=== PATIENT | male | born 1965 | race Caucasian/White ===

== ENCOUNTER 2024-06-14 10:19 | Emergency (ER) | payer BC, SELFPAY ==
[2024-06-14 10:23] VITALS: BP 170/100
--- NOTE | 2024-06-14 10:54 | ED.GENMED ---
History of Present Illness
General
Chief Complaint: DVT/Possible Blood Clot
Source: patient
Exam Limitations: none
Time Seen by Provider: 06/14/24 10:51
History of Present Illness
History of Present Illness:
See MDM
Past History
Past History
ED Past Medical History: None
Social History
Tobacco: Non-smoker
Alcohol: None
Personal: Single
Living: with family (lives with brother)
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
Phy Exam
Physical Exam
Physical Exam:
See MDM
Course
Orders/Labs/Results
Orders:
Orders
06/14/24 10:26
US Periph Venous LOWER Ext LT Urgent
Comment:
Reason For Exam: swelling
06/14/24 12:42
Apixaban [Eliquis] 10 mg PO BID ONE
Vital Signs
Initial and Last Documented VS:
Initial Vital Signs
Temp Pulse Resp BP Pulse Ox
98.2 F 80 18 170/100 97
06/14/24 10:23 06/14/24 10:23 06/14/24 10:23 06/14/24 10:23 06/14/24 10:23
Last Documented Vital Signs
Temp Pulse Resp BP Pulse Ox
98.2 F 63 18 137/76 95
06/14/24 10:23 06/14/24 12:07 06/14/24 12:07 06/14/24 12:07 06/14/24 12:07
MDM/Problems Addressed
Differential Diagnosis Includes:
HPI and MDM Narrative:
58-year-old male presenting with left calf pain. Patient states he has a history of DVT and recently returned from [place].
. On exam, there is mild erythema to the left calf but he states this is a heat rash.
Will obtain ultrasound rule out clot
Physical exam
General: Well appearing and non-toxic
HEENT: protecting airway
Neck: appears supple
CV: No evidence of cyanosis
Resp: No accessory muscle use
Abd: Non-distended
Extremities: Mild swelling and tenderness to left calf. Mild erythema noted
Neuro: alert
Psych: Normal affect
Skin: Intact
Problems Addressed including Acute and Chronic Conditions affecting care:
1. Left calf pain
Acuity: acute
Prognosis: stable
Details: Given recent travel, will obtain ultrasound to rule out DVT
Updates
Ultrasound consistent with DVT. Will start Eliquis
Differential Diagnosis (but not limited to): DVT, calf strain
Testing considered: X-ray
Drug therapy (if applicable): OTC meds, please see d/c instruction regarding Rx drugs
Amount and/or Complexity of Data Reviewed
Clinical info obtained from: Patient
External data reviewed: N/A
Labs I independently reviewed (but not limited to): N/A
Radiology: US report reviewed
Pulse Ox: not hypoxic
EKG independently reviewed: N/A
Brim Stretcher: N/A
Critical Care: N/A
Risk of Complication:
Social Determinants of health: Good social support
Discussed with other providers: N/A
Escalation of Care includes Admit/Obs: After being observed in the Emergency Department, pt stable for discharge.
Occasional wrong word or 'sound a like' substitutions may have occurred due to the inherent limitations of voice recognition software. Read the chart carefully and recognize, using context, where substitutions have occurred.
*Critical Care Note
Total Time (30-74mins, 75-104mins- exclusive of procedures): Not Applicable
ED Attending Note
-
Portions of this chart may have been created with voice recognition software.� Occasional wrong word or��sound alike� substitutions may have occurred due to the inherent limitations of voice recognition software.
Discharge Plan
Departure
Patient Disposition: Home (Routine Discharge)
Date of Disposition: 06/14/24
Time of Disposition: 12:43
Patient with high blood pressure during this ER visit?: No
Discharge Problem:
DVT (deep venous thrombosis)
Instructions: Deep Vein Thrombosis (Blood Clots in the Legs) (DC)
Prescriptions:
New
Eliquis DVT-PE Treat 30D Start 5 mg (74 tabs) tablets,dose pack
See Rx Instructions .ROUTE .COMPLEX Qty: 74 0RF
Rx Instructions:
orally per package directions
Referrals:
NONE,* [Family Provider] -
Activity Restrictions/Additional Instructions:
Please return for any worsening symptoms.
You may return at any time if you have further concerns.
Please follow up with your doctor at the first available appointment, preferably this week.
I started you on a blood thinner for the blood clot. I am writing you the first 30 days. Please have your doctor continue this medication until the clot resolves.
Thank you for choosing [facility].
Interventions
Interventions:
*Risk Screen - Suicide Last Done: 06/14/24 10:23
*General Assessment Last Done: 06/14/24 10:23
*Neglect/Abuse Screening Last Done: 06/14/24 10:23
ED- Fall Risk Assessment Last Done: 06/14/24 11:30
*ED COVID-19 Vaccine History Last Done: 06/14/24 10:23
ED- Cardiac Assessment Last Done: 06/14/24 11:29
ED- Pulmonary Assessment Last Done: 06/14/24 11:29
ED-Peripheral Vascular Assessment Last Done: 06/14/24 11:29
ED-Skin Assessment Last Done: 06/14/24 11:29
Discharge Date and Time
Print Language: OCCITAN
[2024-06-14 12:07] VITALS: BP 137/76
[2024-06-14] MEDS: ELIQUIS 10 MG PO (12:50)
== END 2024-06-14 12:59 | disposition home or self-care (01) ==
LOC: EMR 10:19
PROVIDERS: EMERGENCY PHYSICIAN Student in an Organized Health Care Education/Training Program
DX: I82.412 Acute embolism and thrombosis of left femoral vein (principal); M79.662 Pain in left lower leg; Z86.718 Personal history of other venous thrombosis and embolism; Z79.01 Long term (current) use of anticoagulants
CPT/HCPCS: 99284; 93971

== ENCOUNTER → 2024-09-28 10:30 | Outpatient (REF) | payer BC, SELFPAY | LOC: RAD 10:30 | PROVIDERS: ATTENDING PHYSICIAN Internal Medicine Hematology & Oncology; FAMILY PHYSICIAN Nurse Practitioner Adult Health | DX: I82.412 Acute embolism and thrombosis of left femoral vein (principal); I80.02 Phlebitis and thrombophlebitis of superficial vessels of left lower extremity | CPT/HCPCS: 93971 ==

== ENCOUNTER 2025-02-02 05:13 | Inpatient (IN) | payer BC, SELFPAY ==
[2025-02-02] VITALS (16 sets, daily range): BP systolic 97–190; BP diastolic 63–92; BMI 38.8; BMI 37.6
--- NOTE | 2025-02-02 03:24 | ED.GENMED ---
History of Present Illness
<Ashley Vance MD, Resident - Last Filed: 02/02/25 05:01>
General
Chief Complaint: Back Pain
Source: patient
Exam Limitations: none
Time Seen by Provider: 02/02/25 03:11
Nursing documentation reviewed up to this point in time: agreed with
History of Present Illness
History of Present Illness:
59-year-old male with past medical history of DVTs and hyperlipidemia comes to the ED due to upper back pain radiating down to his bilateral arms and chest starting around one week ago. He also has some left-sided jaw pain as well as diaphoresis.
Patient symptoms got progressively worse and he ended up going to [facility] urgent care earlier today. He states that they did an EKG and chest x-ray which did not show any abnormal findings. He was started on a muscle relaxant methocarbamol
which he took only 1 dose at 10 PM earlier today. 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 His pain comes and goes and he says that he has tried Ibuprofen for pain management which hasn't really helped.
He reports no fevers/chills or any shortness of breath. He does not have any nausea, vomiting or abdominal pain.
Past History
<Ashley Vance MD, Resident - Last Filed: 02/02/25 05:01>
Past History
ED Past Medical History: Hypercholesterolemia and Other (DVT)
Social History
Tobacco: Non-smoker
Alcohol: None
Personal: Single
Living: with family (lives with brother)
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
Review of Systems
<Ashley Vance MD, Resident - Last Filed: 02/02/25 05:01>
Review of Systems
Allergies reviewed?: Yes
All Other Systems: ROS reviewed and negative except as documented in HPI and ROS
Constitutional: Denies fever, fatigue or chills
EENT: Reports other (Jaw pain)
Respiratory: Reports no symptoms
Cardiac: Reports chest pain (pain radiates from back to front (around shoulders)) and diaphoresis; Denies palpitations or syncope
ABD/GI: Reports no symptoms
: Reports no symptoms
Musculoskeletal: Reports no symptoms
Skin: Reports no symptoms
Neurological: Reports no symptoms
Endocrine: Reports no symptoms
Hematologic/Lymphatic: Reports no symptoms
Psychiatric: Reports no symptoms
Phy Exam
<Ashley Vance MD, Resident - Last Filed: 02/02/25 05:01>
General Physical Exam
General Presentation: well appearing and no apparent distress
General age: appears stated age
General Skin: warm and dry
General Habitus: normal
General Mental: alert
General Hydration: appears well hydrated
Cardiovascular Exam
Cardiovascular Exam: regular rate/rhythm, no edema and no murmur
Pulmonary Exam
Pulmonary Exam: lungs clear, no respiratory distress, no crackles and no wheezing
Gastrointestinal Exam
Gastrointestinal Exam: normal bowel sounds, non tender, soft and non distended
Musculoskeletal Exam
Musculoskeletal Exam: back tenderness (Mild pain on palpation mid upper back)
Skin Exam
Skin Exam: normal color, warm/dry and no rash
Course
<Ashley Vance MD, Resident - Last Filed: 02/02/25 05:01>
Orders/Labs/Results
Orders:
Orders
02/02/25 03:31
IV Insert/Care/Rem.- Treatment PRN
Vital Signs- Treatment ONCE
Frequency: Hourly
Pulse Ox/cont/shift [RESP] Stat
Quantity: 1
02/02/25 03:32
Electrocardiogram (*1) Stat
Reason for Study: Other
Other Reason for Exam: chest pain
EKG- Treatment ONCE
02/02/25 03:45
Cardiovascular Evaluation Urgent
Comment: ADD ON
Complete Blood Count/With Diff Urgent
Comprehensive Metabolic Panel Urgent
Glycohemoglobin (HgbA1c) Urgent
PTT Urgent
Troponin I Urgent
02/02/25 04:35
Aspirin Chewable [Low Strength Aspirin] 324 mg PO NOW STA
Nitroglycerin Sublingual [Nitrostat (Sublingual)] 0.4 mg SL NOW STA
02/02/25 04:39
CR Chest Portable - 1 View Urgent
Comment:
Reason For Exam: intermittent CP, upper back pain x 1 week
Reason Study Needs to be Portable: Unable to Transport
02/02/25 04:48
Heparin 4,000 units IV NOW STA
Nursing to Place Non Medication Order As Directed
Physician Order: PTT 6 hours after initial start of Heparin infusion
02/02/25 04:51
Add On- LAB Stat
Tests Added?: cardiovascular panel, HgbA1c
02/02/25 04:57
Nitroglycerin Ointment [Nitro-Bid] 1 inch TOPICAL NOW STA
02/02/25 05:00
Heparin 43659 Units/250 ml 25,000 units in 250 ml IV PER PROTOCOL
Weight to be used for heparin protocol in kilograms (kg):: 119.2
Protocol:: Cardiac Tx/Acute Coronary
PTT Goal Range to be used:: PTT 73 to 111 seconds
Order type:: Initial
INITIAL Infusion Dose (UNITS/KG/hr) & then follow protocol:: 12 units/kg/hr
Infusion Dose in UNITS/hr & then follow protocol (UNITS/hr):: 1,000
INFUSION RATE in mL/hr & then follow protocol (mL/hr):: 10
PTT less than or equal to 64 seconds:: Increase rate by 200 units/hr (+ 2 mL/hr)
PTT 64.1 to 72.9 seconds:: Increase rate by 100 units/hr (+ 1 mL/hr)
PTT 73 to 111 seconds:: Target Range. No change in rate.
PTT 111.1 to 130.9 seconds:: Decrease rate by 100 units/hr (- 1 mL/hr)
PTT 131 to 199.9 seconds:: HOLD for 1 hr. Then decrease rate by 200 units/hr (- 2 mL/hr)
PTT greater than or equal to 200 seconds:: HOLD for 2 hrs & Notify Provider. Then decrease by 200 units/hr (-
2 mL/hr)
Lab follow-up:: Each change, PTT q6h until 2 consecutive are therapeutic. Then PTT
daily.
Abnormal Lab Results
02/02/25
03:45
WBC 10.9 H 10^3/uL
(4.8-10.8)
Abs Immat Gran (auto) 0.1 H 10^3/uL
(0-0.05)
Absolute Neuts (auto) 8.8 H 10^3/uL
(1.4-6.5)
Neutrophils % 80.2 H %
(42.2-75.2)
Lymphocytes % 12.9 L %
(20.5-51.1)
BUN 23 H mg/dl
(9-20)
Glucose 195 H mg/dl
(70-99)
Troponin I 0.487 H* ng/ml
02/02/25 03:45
02/02/25 03:45
Vital Signs
Initial and Last Documented VS:
Initial Vital Signs
Temp Pulse Resp BP Pulse Ox
98.4 F 60 20 190/92 96
02/02/25 02:43 02/02/25 02:43 02/02/25 02:43 02/02/25 02:43 02/02/25 02:43
Last Documented Vital Signs
Temp Pulse Resp BP Pulse Ox
98.4 F 60 17 166/91 94
02/02/25 02:43 02/02/25 04:30 02/02/25 04:30 02/02/25 04:46 02/02/25 04:30
<Carola Jon, DO - Last Filed: 02/02/25 04:59>
Orders/Labs/Results
Orders:
Orders
02/02/25 03:31
IV Insert/Care/Rem.- Treatment PRN
Vital Signs- Treatment ONCE
Frequency: Hourly
Pulse Ox/cont/shift [RESP] Stat
Quantity: 1
02/02/25 03:32
Electrocardiogram (*1) Stat
Reason for Study: Other
Other Reason for Exam: chest pain
EKG- Treatment ONCE
02/02/25 03:45
Cardiovascular Evaluation Urgent
Comment: ADD ON
Complete Blood Count/With Diff Urgent
Comprehensive Metabolic Panel Urgent
Glycohemoglobin (HgbA1c) Urgent
PTT Urgent
Troponin I Urgent
02/02/25 04:35
Aspirin Chewable [Low Strength Aspirin] 324 mg PO NOW STA
Nitroglycerin Sublingual [Nitrostat (Sublingual)] 0.4 mg SL NOW STA
02/02/25 04:39
CR Chest Portable - 1 View Urgent
Comment:
Reason For Exam: intermittent CP, upper back pain x 1 week
Reason Study Needs to be Portable: Unable to Transport
02/02/25 04:48
Heparin 4,000 units IV NOW STA
Nursing to Place Non Medication Order As Directed
Physician Order: PTT 6 hours after initial start of Heparin infusion
02/02/25 04:51
Add On- LAB Stat
Tests Added?: cardiovascular panel, HgbA1c
02/02/25 04:57
Nitroglycerin Ointment [Nitro-Bid] 1 inch TOPICAL NOW STA
02/02/25 05:00
Heparin 57177 Units/250 ml 25,000 units in 250 ml IV PER PROTOCOL
Weight to be used for heparin protocol in kilograms (kg):: 119.2
Protocol:: Cardiac Tx/Acute Coronary
PTT Goal Range to be used:: PTT 73 to 111 seconds
Order type:: Initial
INITIAL Infusion Dose (UNITS/KG/hr) & then follow protocol:: 12 units/kg/hr
Infusion Dose in UNITS/hr & then follow protocol (UNITS/hr):: 1,000
INFUSION RATE in mL/hr & then follow protocol (mL/hr):: 10
PTT less than or equal to 64 seconds:: Increase rate by 200 units/hr (+ 2 mL/hr)
PTT 64.1 to 72.9 seconds:: Increase rate by 100 units/hr (+ 1 mL/hr)
PTT 73 to 111 seconds:: Target Range. No change in rate.
PTT 111.1 to 130.9 seconds:: Decrease rate by 100 units/hr (- 1 mL/hr)
PTT 131 to 199.9 seconds:: HOLD for 1 hr. Then decrease rate by 200 units/hr (- 2 mL/hr)
PTT greater than or equal to 200 seconds:: HOLD for 2 hrs & Notify Provider. Then decrease by 200 units/hr (-
2 mL/hr)
Lab follow-up:: Each change, PTT q6h until 2 consecutive are therapeutic. Then PTT
daily.
Abnormal Lab Results
02/02/25
03:45
WBC 10.9 H 10^3/uL
(4.8-10.8)
Abs Immat Gran (auto) 0.1 H 10^3/uL
(0-0.05)
Absolute Neuts (auto) 8.8 H 10^3/uL
(1.4-6.5)
Neutrophils % 80.2 H %
(42.2-75.2)
Lymphocytes % 12.9 L %
(20.5-51.1)
BUN 23 H mg/dl
(9-20)
Glucose 195 H mg/dl
(70-99)
Troponin I 0.487 H* ng/ml
02/02/25 03:45
02/02/25 03:45
Vital Signs
Initial and Last Documented VS:
Initial Vital Signs
Temp Pulse Resp BP Pulse Ox
98.4 F 60 20 190/92 96
02/02/25 02:43 02/02/25 02:43 02/02/25 02:43 02/02/25 02:43 02/02/25 02:43
Last Documented Vital Signs
Temp Pulse Resp BP Pulse Ox
98.4 F 60 17 166/91 94
02/02/25 02:43 02/02/25 04:30 02/02/25 04:30 02/02/25 04:46 02/02/25 04:30
<Ashley Vance MD, Resident - Last Filed: 02/02/25 05:01>
MDM/Problems Addressed
Differential Diagnosis Includes:
Musculoskeletal Back Pain, Aortic Dissection, ACS, PE
MDM/Problems Addressed:
59 year old male with a past medical history of DVTs and HLD comes to the ED due to 1 week long history of upper back pain that radiates to the front.
Due to symptoms such as radiating pain to the chest, jaw pain, and diaphoresis, concern for cardiac process
Will get EKG, Troponin, CBC, CMP
Will get CTA of Chest depending on results of EKG to check for any aortic disease
EKG shows some T-wave inversions w/ Troponin increased giving concern for NSTEMI
Will give Nitroglycerin and Aspirin. Will start Heparin treatment and admit for further management
Chronic conditions affecting care: Other (DVTs, HLD)
<Ashley Vance MD, Resident - Last Filed: 02/02/25 05:01>
*Pulse Oximetry
SaO2: 96
Oxygen Mode of Delivery: Room air
Patient hypoxic: no
*Critical Care Note
Total Time (30-74mins, 75-104mins- exclusive of procedures): Not Applicable
ED Attending Note
<Ashley Vance MD, Resident - Last Filed: 02/02/25 05:01>
-
Portions of this chart may have been created with voice recognition software.� Occasional wrong word or��sound alike� substitutions may have occurred due to the inherent limitations of voice recognition software.
<Carola Jon DO - Last Filed: 02/02/25 04:59>
ED Attending Note
Patient seen and examined by attending physician: Yes
I performed the substantive portion of visit, reviewed & personally made and approve the management plan that is documented in note by myself or [facility].: Yes
ED Attending Note:
59-year-old obese gentleman with history of hyperlipidemia, maintained on rosuvastatin. History of left lower extremity DVT after lengthy air travel May 2024, completed a 6-month course of Eliquis.
He presents with 1 week history of intermittent upper back pain that radiates to his upper chest and occasionally to his jaw which he describes as a jaw ache, upper back and upper chest ache. No definitive aggravating nor relieving factors,
intermittent throughout the week with an episode of severe upper back pain yesterday accompanied with diaphoresis prompting visit to urgent care yesterday where he reportedly underwent unremarkable EKG, unremarkable chest x-ray and was discharged
with prescription for methocarbamol. Took a dose this evening around 10 PM as well as 400 mg of ibuprofen. No relief thus presented here.
He denies arm pain, no weakness no numbness, no posterior neck pain nor headache. No history of similar episodes in the past. No insightful injury. 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 Denies discomfort with lifting, movement etc.
No history of similar episodes in the past.
Father with history of CAD, DE, CHF but patient states his father 'smoked and drank. I do not do any of those.'
Currently feeling improved, perhaps mild upper back ache but no chest pain nor jaw pain.
59-year-old obese gentleman appears his stated age. Bright and alert, pleasant, appears in no acute distress.
Heart is regular rate and rhythm. No murmur no rub.
Lungs are clear to auscultation.
Back: No midline bony tenderness. No palpable paravertebral muscle tenderness.
Extremities: Nonpitting edema bilateral lower extremities left greater than right. Nontender. Patient states lower extremity edema is chronic and unchanged. Peripheral pulses are full and equal. There is no tenderness to the shoulders. Full
shoulder range of motion without difficulty nor pain.
Significant concern for ACS, other consideration is dissection, less likely PE as he has had no recent travel, no shortness of breath no palpitations.
Will check EKG, labs including troponin.
Will consider imaging depending on results and clinical course.
04:45
EKG shows normal sinus rhythm with first-degree AV block, left axis deviation, flipped T waves inferiorly as well as V6. No evidence of ST segment elevation. No old EKGs to compare.
Labs remarkable for elevated troponin 0.487. Consistent with non-STEMI.
Will give 324 mg chewable aspirin. Initiate IV heparin bolus and drip.
Patient waxes and wanes states he is pain-free but then perhaps minimal upper back pain. Will trial sublingual nitroglycerin.
Will plan to admit to hospitalist service and cardiology has been notified as well. Will evaluate this morning.
Discharge Plan
Departure
Patient Disposition: Admit
Date of Disposition: 02/02/25
Time of Disposition: 04:59
Admit to: IVU
Admit to doctor: Dr. Ferrara
Presentation/result/management discussed w/ accepting MD/DO: Hospitalist
Patient with high blood pressure during this ER visit?: Yes
Condition: Serious
Covid-19: Not Applicable
Discharge Problem:
Acute non-ST elevation myocardial infarction (NSTEMI)
Prescriptions:
No Action
Eliquis DVT-PE Treat 30D Start 5 mg (74 tabs) tablets,dose pack
See Rx Instructions .ROUTE .COMPLEX Qty: 74 0RF
Rx Instructions:
orally per package directions
Referrals:
UNKNOWN - PT DOES,NOT KNOW [Unknown Provider]
Interventions
Interventions:
*Risk Screen - Suicide Last Done: 02/02/25 02:43
*General Assessment Last Done: 02/02/25 02:43
*Neglect/Abuse Screening Last Done: 02/02/25 02:43
*ED- Fall Risk Assessment Last Done: 02/02/25 02:43
*ED COVID-19 Vaccine History Last Done: 02/02/25 02:43
Discharge Date and Time
Print Language: DOMINICAN
[2025-02-02 03:55] LABS: Hematocrit 46.3 % (39.0-52.0); Hemoglobin 15.6 g/dL (13.0-18.0); Mean Corp Hgb Conc. 33.7 g/dL (33.0-37.0); Mean Corpuscular Volume 86.1 fL (80.0-94.0); Nucleated Red Blood Cells % 0 % (-); Platelet Count 236 10^3/uL (130-400); Red Cell Dist. Width 13.6 % (11.5-14.5)
[2025-02-02 04:24] LABS: ALT (SGPT) 30 U/L (0-50); AST (SGOT) 35 U/L (17-59); Albumin 4.6 g/dl (3.5-5.0); Alkaline Phosphatase 92 U/L (38-126); Blood Urea Nitrogen 23 mg/dl (9-20); Calcium 9.2 mg/dl (8.4-10.2); Carbon Dioxide 23 mmol/L (22-30); Chloride 106 mmol/L (98-107); Glucose 195 mg/dl (70-99); Potassium 4.3 mmol/L (3.5-5.1); Sodium 137 mmol/L (135-145); Total Protein 7.5 g/dl (6.3-8.2); eGFR > 60.00
[2025-02-02 04:33] LABS: Troponin I 0.487 ng/ml
[2025-02-02] MEDS: NITROSTAT (SUBLINGUAL) 0.4 MG SL (04:41)
[2025-02-02] MEDS: LOW STRENGTH ASPIRIN 324 MG PO (04:41)
--- NOTE | 2025-02-02 04:52 | HPS.HSE ---
Family Physician
-
Family Physician: Jos Caban
Chief Complaint
-
Upper back pain/chest pain
History of Present Illness
This is a 59-year-old with diet-controlled diabetes, hyperlipidemia and hypertension who presents to the emergency department with intermittent episodes of upper back pain radiating to the chest.
Patient reported that the symptoms have been going on for 1 week with intermittent episodes of pain in between his shoulder blades according for a brief. Which initially associated with musculoskeletal pain due to his walk. However yesterday the
pain was more severe and radiated to his chest and jaw and lasted for about 30 minutes. It was associated with diaphoresis. When he was seen at urgent care and the pain had resolved. Reported that he had a negative EKG and chest x-ray. He was
given a muscle relaxant. He comes to the emergency department because he reports persistent pain in his neck despite the muscle relaxant. He is currently chest pain-free.
He has a history of DVT that was provoked following a prolonged airplane flight for which she was on 3 months of anticoagulation ending in about August. He denies any pleuritic chest pain. He denies any shortness of breath. He denies any calf
tenderness no new lower extremity swelling.
Vital signs were actually stable he is not hypertensive with a blood pressure of 143/77 pulse rate of 60 and he was satting 98% on room air. ECG shows normal sinus rhythm with flipped T waves inferiorly and V6. His troponin was 0.47. CBC was
unremarkable, electrolytes renal and creatinine were normal.
Medical History
Past Medical History
Past Medical History: Reports HTN, Hypercholesterolemia and Other (DVT)
Past Surgical History: Reports None
Social History
Tobacco: Non-smoker
Alcohol: None
Drug: None
Personal: Single
Living: With Family
Employment: Employed
Family History
Family History: Not pertinent
Allergies / Home Medications
Allergies reflects when Allergies were last updated in [facility].
Home Medications with original date entered in [facility]
Allergy/Medication List:
Allergies
Allergy/AdvReac Type Severity Reaction Status Date / Time
No Known Allergies Allergy Verified 02/02/25 02:43
Home Medications
Rosuvastatin 20 mg tablet, 20 mg p.o. daily
Review of Systems
-
History Source: Patient
Constitutional: Reports No Symptoms
EENT: Reports No Symptoms
Respiratory: Reports No Symptoms
Cardiac: Reports Chest Pain and Diaphoresis
Abdomen/GI: Reports No Symptoms
: Reports No Symptoms
Musculoskeletal: Reports No Symptoms
Skin: Reports No Symptoms
Neurological: Reports No Symptoms
Endocrine: Reports No Symptoms
Hematologic/Lymphatic: Reports No Symptoms
Psych: Reports No Symptoms
Physical Exam
Vital Signs
Vital Signs
Temp Pulse Resp BP Pulse Ox
98.4 F 60 17 166/91 94
02/02/25 02:43 02/02/25 04:30 02/02/25 04:30 02/02/25 04:46 02/02/25 04:30
Physical Exam
General: Well Developed, Well Nourished and No Apparent Distress
HEENT: NormoCephalic, Moist mucous membranes and Atraumatic
Respiratory: Clear
Cardiac: S1/S2 and Regular Rhythm; No Murmur or Rub
GI: Soft, Non Tender, Non Distended and Normal Bowel Sounds; No Organomegaly
Rectal: Deferred by Provider
Musculoskeletal: No Clubbing, No Cyanosis and No Edema
Skin: No Rash
Neuro: Nonfocal/grossly intact
Laboratory Results
-
02/02/25 03:45
02/02/25 03:45
Laboratory Results
Total Bilirubin 0.5 mg/dl (0.2-1.3) 02/02/25 03:45
AST 35 U/L (17-59) 02/02/25 03:45
ALT 30 U/L (0-50) 02/02/25 03:45
Alkaline Phosphatase 92 U/L (38-126) 02/02/25 03:45
Troponin I 0.487 ng/ml H* 02/02/25 03:45
Data Reviewed
-
Medical Tests (Nuc Med, Echo, EKG etc): Image Personally Visualized and interpreted
Lab Data: Labs Reviewed by me
Impression/Plan
-
IMPRESSION:
59-year-old with past medical history of hyperlipidemia, on diet control for prediabetes, prior provoked DVT status post anticoagulation presenting to the emergency department with chest pain and found to have elevated troponin and flipped T waves
on EKG. He is currently chest pain-free, hemodynamically stable and in no acute distress. Troponin was 0.48. Rest of his labs unremarkable.
PLAN:
NSTEMI
- Admit to IVU
-Status post aspirin
-Nitroglycerin as needed chest pain
-Start heparin drip protocol for ACS
-N.p.o. for now
-ECG as needed chest pain or nausea
-Continue aspirin 81 daily
-Continue statin (rosuvastatin)
-Checking lipid panel and A1c
-Cardiology consulted
DVT prophylaxis on heparin drip
CODE STATUS�full code
[2025-02-02 04:58] LABS: APTT 36.1 Sec (23.4-35.0)
[2025-02-02] MEDS: HEPARIN 25000 UNITS/250 ML IV (05:14)
[2025-02-02] MEDS: HEPARIN 4000 UNITS IV (05:14)
[2025-02-02] MEDS: NITRO-BID 1 INCH TOPICAL (05:22)
[2025-02-02 05:25] LABS: HDL Cholesterol 37 mg/dl
[2025-02-02 06:31] LABS: LDL Cholesterol, Direct 111 mg/dl
--- NOTE | 2025-02-02 08:23 | CON.CAR ---
Addendum entered and electronically signed by Damian Flores MD 02/02/25 09:02:
Patient seen and examined in collaboration with [employer]; agree with below.
- 59-year-old male with hyperlipidemia (on rosuvastatin, but LDL is not nearly at goal of less than 55), uncontrolled/untreated hypertension, untreated diabetes, obesity, and family history of CAD (father) presenting with chest pain, concerning for
angina; cardiac troponin mildly elevated.
- Patient's presentation appears to be consistent with an NSTEMI.
- T wave inversion noted in inferior leads, and possible anterior infarct pattern on EKG.
- Continue to trend cardiac troponin until peak.
- Continue heparin drip and Nitropaste.
- Patient has notable edema on examination; will start Lasix 40 mg IV daily.
- Will hold off on starting beta-mercedes secondary to baseline low heart rates of 60s.
- valance cutter.
- Cardiac catheterization planned for Tuesday, if remains clinically stable until then; no chest pain currently.
Original Note:
Consultation
Consultation Request
Date/Time Consultation Requested: 02/02/25656
Date/Time Consultation Performed: 02/02/25823
Requesting Provider: Dr. Ferrara
Performing Provider: Bess RYAN for Dr. Flores
Reason for Consultation: NSTEMI
Medical History
-
Chief Complaint: back/chest pain
History of Present Illness:
59 y/o male with hypertension (not on meds), dyslipidemia, DM2 (not on meds), obesity, and DVT (provoked from long flight, s/p Eliquis course) who is here for evaluation after he developed back discomfort yesterday around noon while he was working-
it radiated to his chest and felt like a tightness. He was also sweaty. It lasted about 15 minutes then resolved, but when it came back he went to urgent care, where he was told his EKG was fine and was given muscle relaxer. This did not help and
when he went to sleep, he developed the discomfort again and came to the ER. He is seen to have inferior T wave inversions on EKG. His trop is 0.487. He has been given ASA, nitro, and is on heparin gtt. He is in no distress and denies any pain at
the time of my assessment. He has no SOB.
Past Medical History
Past Medical History: HTN, Hypercholesterolemia, NIDDM and Other (as above)
Social History
Tobacco: Non-Smoker
Alcohol: None
Drug: None
Employment: Employed
Family History
Family History: Other (dad had heart issues- at 74- details unclear- was smoker)
Allergies / Home Medications
Allergy/AdvReac Type Severity Reaction Status Date / Time
No Known Allergies Allergy Verified 02/02/25 02:43
�Medication �Instructions �Recorded �Confirmed �Type
methocarbamol 500 mg tablet 500 mg PO HS 02/02/25 02/02/25 History
rosuvastatin 10 mg tablet 10 mg PO DAILY 02/02/25 02/02/25 History
Review of Systems
-
History Source: Patient
All other systems: Negative unless noted
Cardiac: Chest Pain and Diaphoresis
Musculoskeletal: Other (back pain)
Physical Exam
Vital Signs
Temp Pulse Resp BP Pulse Ox
98.4 F 70 18 153/88 97
02/02/25 02:43 02/02/25 05:22 02/02/25 05:15 02/02/25 05:22 02/02/25 05:30
Lab Results
02/02/25 03:45
02/02/25 03:45
Troponin I 0.487 ng/ml H* 02/02/25 03:45
Physical Exam
General: Well Developed, Well Nourished and No Apparent Distress
HEENT: Normocephalic and Anicteric
Respiratory: Clear and Non Labored Respirations
Cardiac: Regular Rhythm
Musculoskeletal: Edema (chronic BLE edema, L > R- unchanged per patient)
Skin: Warm and Dry
Neuro: AO x 3
Psych: Calm
Impression / Plan
-
NSTEMI:
-this diagnosis is threat to life
-trop 0.487, EKG with inferior T wave inversions
-follow EKG's, trend trops to peak, obtain echo
-continue IV heparin, which requires intensive monitoring
-ASA given- continue
-increase statin
-adding ACEI. Won't add BB for now since baseline HR on low side- may add later this admit
-CP free, has received nitrates
DM2:
-not on meds
-hgbA1C pending
-management per primary team
HTN:
-not on meds
-add ACEI and monitor
HLD:
-LDL 111, statin increased
hx DVT:
-previously on Eliquis course
Obesity:
-will benefit from weight loss moving forward
Data Reviewed
-
EKG: Tracing Personally Visualized and interpreted (SR with inferior t wave inversions)
Radiology: Image Personally Visualized and interpreted (no acute disease of chest to my review- awaiting radiology read)
Medical Tests (Nuc Med, Echo etc): Other (echo is ordered)
Labs: Labs Reviewed by me
Scores
REVA for NSTEMI
Age >/= 65: No
>/=3 CAD risk factors-HTN,High Chol,Fam hx CAD,DM,Smoker: Yes
Known CAD (stenosis >/=50%): No
ASA use in past 7 days: No
Severe angina (>/= 2 episodes in 24 hrs): Yes
EKG ST Changes >/= 0.5mm: No
Positive cardiac marker: Yes
Score: 3
Risk at 14 days-mortality, new/recurrent SD, severe ischemia: Intermediate Risk- 13% Risk at 14 days- all cause mortality, new or recurrent SD, or severe recurrent ischemia requiring urgent revascularization
--- NOTE | 2025-02-02 08:38 | EDRN ---
this RN called the receiving IVU nurse Glenis KELLER and gave verbal report, this RN performed the medication reconciliation with the pt, the pt knows what medications he takes, this RN notified pharmacy, this RN performed admission on the pt as well
--- NOTE | 2025-02-02 08:48 | EDRN ---
Cardiology currently at the pts bedside
--- NOTE | 2025-02-02 09:32 | PTCARENOTE ---
pt admitted from ed. pt oriented to room, sr on the monitor, hr in the 70s, vss. pt offers no complaints at this time. pt denies cp/sob at this time. pt ambulated from stretcher to bed and tolerated well. heparin gtt running per protocol, see
documentation. call coombs within reach.
[2025-02-02 09:38] LABS: Troponin I 3.160 ng/ml
[2025-02-02] MEDS: ZESTRIL 10 MG PO (11:00)
[2025-02-02] MEDS: LASIX 40 MG IV (11:01)
[2025-02-02 11:11] LABS: Glycohemoglobin (HgbA1c) 6.3 % (4.0-5.6)
[2025-02-02 11:39] LABS: APTT 40.4 Sec (23.4-35.0)
[2025-02-02 11:41] LABS: D-Dimer 0.30 ug/mlFEU (0.00-0.50)
[2025-02-02 11:58] LABS: Troponin I 4.890 ng/ml
[2025-02-02] MEDS: CRESTOR 20 MG PO (18:36)
[2025-02-02 19:01] LABS: APTT 42.9 Sec (23.4-35.0)
[2025-02-02 19:20] LABS: Troponin I 7.770 ng/ml
--- NOTE | 2025-02-02 20:55 | PTCARENOTE ---
assumed care of patient at the change of shift. AAOx3. denies any cp/sob. heparin gtt infusing per protocol. mild dyspnea on exertion noted. patient denies. 95% on RA. SR with a first degree AVB on tele-60s. bp stable. educated patient to inform RN
with any changes. call coombs within reach.
[2025-02-03] VITALS (7 sets, daily range): BP systolic 90–135; BP diastolic 54–85; BMI 37.3
[2025-02-03] MEDS: HEPARIN 25000 UNITS/250 ML IV ×2 (02:01→17:48)
[2025-02-03 02:21] LABS: Hematocrit 44.1 % (39.0-52.0); Hemoglobin 15.0 g/dL (13.0-18.0); Mean Corp Hgb Conc. 34.0 g/dL (33.0-37.0); Mean Corpuscular Volume 86.0 fL (80.0-94.0); Nucleated Red Blood Cells % 0 % (-); Platelet Count 218 10^3/uL (130-400); Red Cell Dist. Width 14.0 % (11.5-14.5)
[2025-02-03 02:31] LABS: APTT 63.1 Sec (23.4-35.0)
[2025-02-03 02:49] LABS: Blood Urea Nitrogen 25 mg/dl (9-20); Calcium 9.3 mg/dl (8.4-10.2); Carbon Dioxide 25 mmol/L (22-30); Chloride 108 mmol/L (98-107); Estimated Creatinine Clearance > 125 ml/min; Glucose 111 mg/dl (70-99); Potassium 4.0 mmol/L (3.5-5.1); Sodium 139 mmol/L (135-145); eGFR > 60.00
[2025-02-03 03:10] LABS: Troponin I 6.050 ng/ml
[2025-02-03] MEDS: LOW STRENGTH ASPIRIN 81 MG PO (08:35)
[2025-02-03] MEDS: LASIX 40 MG IV (08:35)
[2025-02-03] MEDS: ZESTRIL 10 MG PO (08:35)
[2025-02-03] MEDS: FLUSH (NSS) 1 FLUSH IV (08:36)
--- NOTE | 2025-02-03 09:16 | PTCARENOTE ---
received patient this am, monitor shows NSR with a first degree, VSS. IV heparin @ 1600units/hr via left hand. INT in right hand flushes well. edema noted in right leg greater than left. patient scheduled for heart cath in am.
[2025-02-03 09:24] LABS: APTT 89.2 Sec (23.4-35.0)
--- NOTE | 2025-02-03 10:11 | W.PN.CD ---
Today's Communication / Plan
-
- Troponin 0.487 on admission with peak to 7.7, now trending down; EKG with inferior T wave inversion.
- Remains chest pain-free at this time.
- Continue IV heparin, aspirin, and rosuvastatin (dose was increased); no beta-mercedes secondary to intrinsic low heart rate.
- Cardiac catheterization planned for tomorrow morning; NPO after midnight.
- Echocardiogram tomorrow.
Impression / Plan
-
NSTEMI:
- Troponin 0.487 on admission with peak to 7.7, now trending down; EKG with inferior T wave inversion.
- Remains chest pain-free at this time.
- Continue IV heparin, aspirin, and rosuvastatin (dose was increased); no beta-mercedes secondary to intrinsic low heart rate.
- Cardiac catheterization planned for tomorrow morning; NPO after midnight.
- Echocardiogram tomorrow.
NSVT:
- 8-beats noted yesterday (asymptomatic).
- Following clinically; no beta-mercedes secondary to baseline intrinsic bradycardia.
DM2:
-not on meds as outpatient
-hgbA1C 6.3%
-management per primary team
HTN:
- Untreated as outpatient.
- Lisinopril 10 mg and IV Lasix 40 mg daily started yesterday (mild edema).
HLD:
-LDL 111, statin increased
hx DVT:
-previously on Eliquis course
Obesity:
-will benefit from weight loss moving forward
Physical Exam
Vital Signs/Labs
Vital Signs
Temp Pulse Resp BP Pulse Ox
98.4 F 62 20 129/85 98
02/03/25 07:19 02/03/25 09:15 02/03/25 07:19 02/03/25 08:35 02/03/25 08:30
02/02/25 02/03/25 02/04/25
06:59 06:59 06:59
Actual Weight 119.2 kg 115.4 kg
02/03/25 02:04
02/03/25 02:04
APTT 89.2 Sec (23.4-35.0) H 02/03/25 09:03
Triglycerides 416 mg/dl (10-149) H 02/02/25 03:45
LDL Cholesterol, Calc mg/dl 02/02/25 03:45
VLDL Cholesterol, Calc mg/dl (0-30) 02/02/25 03:45
HDL Cholesterol 37 mg/dl 02/02/25 03:45
02/02/25
03:45
Yaa-E-Dhqvrvusbfb Pept 1290
LAB Results
02/02/25 02/02/25 02/02/25
03:45 09:01 11:17
Troponin I 0.487 H* 3.160 H* D 4.890 H* D
02/02/25 02/03/25
18:43 02:04
Troponin I 7.770 H* D 6.050 H*
Physical Exam
Constitutional: No acute distress and Comfortable
EENT: Anicteric
Cardiovascular: Rhythm & rate is regular, Systolic murmur absent, Pedal edema present (Trace) and S1S2 is normal
Respiratory: Respiratory effort normal and Lungs clear to auscul.
GI: Soft
Neuro/Psych: AO x 3
Other: Skin (Warm, dry, intact)
Data Reviewed
-
Date of Service: February 03, 2025
EKG: Tracing Personally Visualized and interpreted (Telemetry: Sinus rhythm, 8-beat run of NSVT, infrequent ventricular triplets)
Medical Tests (PFT, Pathology etc): Discussed with Patient
Labs: Labs Reviewed by me
--- NOTE | 2025-02-03 13:53 | W.PN.HOSP.TC ---
Today's Communication/Plan
-
Continue with IV heparin
For cardiac cath and echo tomorrow
Assessment / Plan
Assessment / Plan
IMPRESSION:
59-year-old with past medical history of hyperlipidemia, on diet control for prediabetes, prior provoked DVT status post anticoagulation presenting to the emergency department with chest pain and found to have elevated troponin and flipped T waves
on EKG. He is currently chest pain-free, hemodynamically stable and in no acute distress. Troponin was 0.48. Rest of his labs unremarkable.
PLAN:
NSTEMI
- No further chest pain. Troponin peaked at 7.7 which is trending down.
-Continue aspirin 81 daily
-Continue statin (rosuvastatin)
- Continue with IV heparin.
- For cardiac cath and echo tomorrow.
- IV diuretics per cardiology
Elevated blood pressure-suspect essential hypertension
Initiated on lisinopril by cardiology. Blood pressure above goal.
DVT prophylaxis on heparin drip
CODE STATUS�full code
Anticipated Discharge: 24 - 48 hours
Subjective/Interval History
-
Date of Service: February 03, 2025
No further chest pain. Denies shortness of breath. No nausea or vomiting. Denies any lightheadedness.
Objective Data
-
Labs:
Laboratory Results
02/03/25 02/03/25 02/03/25
02:04 09:03 16:00
WBC 11.1 H
Hgb 15.0
Hct 44.1
Plt Count 218
APTT 63.1 H 89.2 H Pending
Sodium 139
Potassium 4.0
Chloride 108 H
Carbon Dioxide 25
BUN 25 H
Creatinine 0.7
Glucose 111 H
Calcium 9.3
Vital Signs:
Vital Signs
Temp Pulse Resp BP Pulse Ox
98.4 F 62 20 129/85 97
02/03/25 11:44 02/03/25 09:15 02/03/25 11:44 02/03/25 08:35 02/03/25 11:44
I&O
02/02/25 02/03/25 02/04/25
06:59 06:59 06:59
Intake Total 930 / 930
Output Total 1500 / 1500 950 / 950
Balance -570 / -570 -950 / -950
Physical Exam
-
General: Comfortable
Respiratory: Non Labored Respirations; Negative Accessory Resp Muscle Use
Cardiac: Regular Rhythm and S1/S2; Negative Tachycardic
GI: Soft
Neuro: AO x 3
Psych: Calm; Negative Confused
Data Reviewed
-
Labs: Labs Reviewed by me
[2025-02-03 16:40] LABS: APTT 81.6 Sec (23.4-35.0)
[2025-02-03] MEDS: CRESTOR 20 MG PO (17:32)
[2025-02-04] VITALS (17 sets, daily range): BP systolic 112–135; BP diastolic 59–87; BMI 36.8
--- NOTE | 2025-02-04 04:43 | PTCARENOTE ---
Pt SB overnight with HR as low as 45 BPM. Pt denies SOB or any discomfort. Heparin gtt per order. Pt independent in the room. Call corin w/in reach
[2025-02-04 04:53] LABS: Hematocrit 44.4 % (39.0-52.0); Hemoglobin 14.7 g/dL (13.0-18.0); Mean Corp Hgb Conc. 33.1 g/dL (33.0-37.0); Mean Corpuscular Volume 87.4 fL (80.0-94.0); Platelet Count 213 10^3/uL (130-400); Red Cell Dist. Width 13.9 % (11.5-14.5)
[2025-02-04 05:00] LABS: APTT 118.7 Sec (23.4-35.0)
[2025-02-04 05:31] LABS: Blood Urea Nitrogen 20 mg/dl (9-20); Calcium 8.5 mg/dl (8.4-10.2); Carbon Dioxide 20 mmol/L (22-30); Chloride 114 mmol/L (98-107); Estimated Creatinine Clearance > 125 ml/min; Glucose 95 mg/dl (70-99); Potassium 3.4 mmol/L (3.5-5.1); Sodium 140 mmol/L (135-145); eGFR > 60.00
[2025-02-04] MEDS: KCL 40 MEQ PO (06:24)
--- NOTE | 2025-02-04 08:49 | W.PN.CD ---
Today's Communication / Plan
-
Cardiac catheterization today to clarify coronary anatomy.
Echocardiogram pending.
Impression / Plan
-
Impression/Plan: 59 y/o male with HTN, HLD, NIDDM and history of provoked DVT admitted with NSTEMI.
#NSTEMI:
-Acute, threat to life.
-Troponin peaked at 7.7; EKG with inferior T wave inversion.
-Remains chest pain-free at this time.
-Cardiac catheterization to clarify coronary anatomy.
-Echocardiogram pending.
#NSVT:
-Acute, asymptomatic.
-8-beats noted yesterday (02/02/2025).
-Following clinically; no beta-mercedes secondary to baseline intrinsic bradycardia.
#DM2:
-Chronic, diet controlled.
-HgbA1C 6.3%.
-Management per primary team.
-There will be a role for GLP-1 agonists as an outpatient.
#HTN:
-Chronic, untreated as outpatient.
-Responded will to lisinopril/furosemide.
-We will decide on chronicity of furosemide after assessment of LVEDP during cath.
#HLD:
-Chronic, uncontrolled.
-Total cholesterol = 207, LDL = 111, HDL = 37, Triglycerides = 416.
-Rosuvastatin 20 mg daily.
-There may be a role for icosapent ethyl. Recheck lipids in 3 months.
#hx DVT:
-Previously on apixaban x 3 months.
#Obesity:
-Chronic, stable.
-He will benefit from weight loss moving forward.
-As noted, there is a role for GLP-1 agonists at the time of discharge.
Subjective/Interval History:
Chest pain free.
Started on lisinopril/furosemide.
Weight down 1.5 kg.
Intrinsically bradycardic (40-60 bpm).
Physical Exam
Vital Signs/Labs
Vital Signs
Temp Pulse Resp BP Pulse Ox
37.1 C 52 14 113/79 97
02/04/25 07:57 02/04/25 07:57 02/04/25 07:57 02/04/25 03:07 02/04/25 07:57
02/02/25 02/03/25 02/04/25
11:59 11:59 11:59
Actual Weight 115.4 kg 112.9 kg
02/04/25 04:39
02/04/25 04:39
APTT 118.7 Sec (23.4-35.0) H 02/04/25 04:39
Triglycerides 416 mg/dl (10-149) H 02/02/25 03:45
LDL Cholesterol, Calc mg/dl 02/02/25 03:45
VLDL Cholesterol, Calc mg/dl (0-30) 02/02/25 03:45
HDL Cholesterol 37 mg/dl 02/02/25 03:45
02/02/25
03:45
Gnp-C-Uvhthdzyiwk Pept 1290
LAB Results
02/02/25 02/02/25 02/02/25
03:45 09:01 11:17
Troponin I 0.487 H* 3.160 H* D 4.890 H* D
02/02/25 02/03/25
18:43 02:04
Troponin I 7.770 H* D 6.050 H*
Physical Exam
Constitutional: No acute distress and Comfortable
EENT: Anicteric and Moist mucous membranes
Cardiovascular: Rhythm & rate is regular, Pedal edema is absent, JVD pressure is normal, S1S2 is normal and Murmur/rub/gallop absent
Respiratory: Respiratory effort normal, Lungs clear to auscul., Wheeze Absent, Crackles Absent and Rhonchi Absent
GI: Soft, Distention absent, Flat, Non tender and Normal bowel sounds
Neuro/Psych: AO x 3
Data Reviewed
-
Date of Service: February 04, 2025
Medical Decision Making: Reviewed Test Results, Independent Historian Assessment and Test Interpretation
EKG: Tracing Personally Visualized and interpreted and Report Reviewed by me
X-Ray/CT/US/MRI/NUC/PET: Image Personally Visualized and interpreted and Report Reviewed by me
Labs: Labs Reviewed by me
[2025-02-04] MEDS: ZESTRIL 10 MG PO (08:51)
[2025-02-04] MEDS: LOW STRENGTH ASPIRIN 81 MG PO (08:51)
--- NOTE | 2025-02-04 09:00 | PTCARENOTE ---
received PT; AAOx4 w/o complaints of pain; NS VSS; RA clear lung sounds; GI and wnl; PIV's CDI; see worklist for detailed assessment
--- NOTE | 2025-02-04 09:50 | ITS.CL.CATH ---
[facility] - Catheterization
Cardiac Catheterization
Procedure Report:
CARDIAC CATHETERIZATION REPORT
Date of Procedure: 02/04/2025
Referring: Damian Flores M.D.
INDICATION: Non-ST elevation myocardial infarction.
PROCEDURE:
1. Left heart catheterization.
2. Coronary angiography.
A total of 28 minutes of procedural/moderate sedation was utilized. An independent medical records coordinator was present to assist with and help manage the patient's level of consciousness and physiologic status.
ACCESS:
1. 6 Swazi right radial artery using a modified Seldinger technique.
CATHETERS:
1. 5 Swazi JR4.
2. 5 Swazi JL 3.5.
3. 5 Swazi JL 4.
HEMODYNAMIC DATA
Weight (kg): 112.5.
AO (s/d/x, mmHg): 104/68/84
LV (s/x mmHg): 106/14
LEFT VENTRICULOGRAPHY: Not performed.
CORONARY ANGIOGRAPHY
Dominance: Right.
Left Main: Extremely long, bifurcating vessel. There is an 80% lesion in the distal vessel spanning the origin of the LAD and circumflex.
LAD: Normal size vessel giving rise to 1 significant diagonal. There is an 80-90% lesion in the ostium of the vessel as it arises from the left main coronary artery. There is a 60% lesion in the mid LAD immediately after the origin of the
diagonal.
Ramus: Congenitally absent.
Circumflex: Small, nondominant, nearly vestigial vessel supplying a small portion of the lateral wall.
RCA: Enormous, dominant vessel with a large posterolateral arcade that supplies the inferior, inferior lateral and the majority of the lateral wall (essentially the entire circumflex territory). There is a culprit, 90% lesion in the mid RCA.
There is a 70% lesion in the second posterolateral branch.
INTERVENTION(S)
None.
Closure Device: Vascular band.
Radiation (mGy): 447
DAP (cm2.Gy): 22
Fluoroscopy time (minutes): 2.8
CONCLUSIONS
1. Right dominant circulation with an enormous RCA that serves the right coronary and circumflex territories with a culprit 90% lesion in the mid RCA and a 70% lesion in the second posterolateral branch as well as an 80% lesion in the distal left
main coronary artery leading into an 80-90% lesion in the ostium of the LAD as well as a vestigial circumflex.
2. Mildly elevated filling pressures (LVEDP = 14 mmHg at 112.5 kg).
RECOMMENDATIONS:
1. Expectant management after cardiac catheterization via right radial approach.
2. Limited weight bearing on the right wrist for one week.
3. Consultation with CT surgery regarding optimal revascularization technique.
4. Echocardiogram read pending.
5. Aggressive secondary prevention with high-dose, high potency statin.
6. OMT/GDMT as hemodynamics will tolerate.
Copy to: Damian Flores M.D., CONNOR Hernandez
Tee Quiroga DO, FACC, FACP
[2025-02-04 10:46] LABS: INR 1.07; PT 14.2 Sec (11.4-14.6)
--- NOTE | 2025-02-04 11:24 | CONSULT.CT ---
Consultation
-
Date/Time Consultation Requested: 02/04/25
Date/Time Consultation Performed: 02/04/25
Requesting Provider: Tee Quiroga DO
Performing Provider: Ciera RYAN for Warren Bernal MD
Reason for Consultation: CABG evaluation
Patient History
Physicians
Family Physician: Jos Caban
Outpatient Supervisor Orchard: none prior to admission
Inpatient Supervisor Orchard: Tee Quiroga
History of Present Illness
59-year-old male with uncontrolled type 2 diabetes, hyperlipidemia, class II obesity, history of provoked left lower extremity DVT treated with Eliquis a few months ago (approximately August), was admitted to [facility] on 02/02/2025 with posterior mid
scapular pain radiating to shoulders. He initially sought treatment at urgent care center and was given Flexeril for back spasm as ECG and troponin level were 'normal'. Similar pain recurred later in the evening and was associated with
diaphoresis, therefore patient sought treatment at [facility] ED. Denies history of shortness of breath, nausea/vomiting. Initial ECG with inferior T wave inversions and troponin 0.47>7.7, consistent with NSTEMI. Treatment initiated with ASA, nitro, and
is on heparin gtt. Patient denies further pain. TTE reported LVEF 40-45%. Underwent left heart cath today which identified left main/3VCAD. CT surgery is consulted for CABG evaluation.
Past Medical History
Past Medical History: HTN (no meds), Hypercholesterolemia (high cholesterol/triglycerides), NIDDM (diet nly) and Other (provoked LLE DVT-Spring 2024-treated w/Eliquis; Class II obesity (BMI 36.8))
Past Surgical History
Past Surgical History: Other (repair left ear drum perforation)
Family History
Father: at Age (74) and Cause of (CAD)
Family Medical History: CAD
Social History
Alcohol: Occasional
Drug: None
Tobacco: Non-Smoker
Personal: Single
Living: With Family (lives with brother)
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
Allergies
Allergy/AdvReac Type Severity Reaction Status Date / Time
No Known Allergies Allergy Verified 02/02/25 02:43
Home Medications
�Medication �Instructions �Recorded �Confirmed �Type
methocarbamol 500 mg tablet 500 mg PO HS 02/02/25 02/02/25 History
rosuvastatin 10 mg tablet 10 mg PO DAILY 02/02/25 02/02/25 History
Review of Systems
-
History Source: Patient
General: Reports No Symptoms
HEENT: Reports Visual Changes (reading glasses)
Respiratory: Reports No Symptoms
Cardiac: Reports No Symptoms
Abdomen/GI: Reports No Symptoms
: Reports No Symptoms
Musculoskeletal: Reports No Symptoms
Skin: Reports No Symptoms
Neurological: Reports No Symptoms
Vascular: Reports No Symptoms
Physical Exam
Vital Signs
Temp 98 F 02/04/25 11:02
Temp route: Oral 02/04/25 11:02
Pulse 68 02/04/25 11:02
Rhythm: Normal sinus rhythm 02/03/25 19:50
With- First Degree Heart Block 02/03/25 19:50
Resp Rate 16 02/04/25 10:03
Blood pressure 113/79 02/04/25 03:07
Blood pressure extremity used: Left upper arm 02/04/25 11:02
Position: Lying 02/04/25 11:02
MAP (cuff-Bruno Monitor) 87 02/04/25 03:07
MAP 93 02/02/25 08:32
SaO2 96 02/04/25 11:02
Oxygen Mode of Delivery Room air 02/04/25 11:02
Acceptable pain level during hospitalization? 0 02/02/25 02:43
Can the patient verbally communicate their pain? Yes 02/03/25 08:30
Pain scale ratin 02/02/25 08:32
Actual Weight 112.9 kg 02/04/25 06:00
Body Mass Index (BMI) 36.8 02/04/25 06:00
Labs
02/04/25 04:39
02/04/25 04:39
PT 14.2 Sec (11.4-14.6) 02/04/25 04:39
PT Cancelled 02/04/25 04:39
APTT 118.7 Sec (23.4-35.0) H 02/04/25 04:39
Hemoglobin A1c 6.3 % (4.0-5.6) H 02/02/25 03:45
Troponin I 6.050 ng/ml H* 02/03/25 02:04
Qrv-J-Gqlstbjquyk Pept 1290 pg/ml 02/02/25 03:45
Diagnostic Studies
TTE 02/04:
1. LVEF 40-45%.
2. Hypokinesis of the mid to apical anterolateral/inferolateral wall, basal to apical inferior wall, and apex.
3. No significant valvular disease.
4. Ectatic aortic root (3.9 cm).
LHC (R radial) 02/04:
Left Main: Extremely long, bifurcating vessel. 80% lesion in the distal vessel spanning the origin of the LAD and circumflex.
LAD: Normal size vessel giving rise to 1 significant diagonal. 80-90% lesion in the ostium of the vessel as it arises from the left main coronary artery. 60% lesion in the mid LAD immediately after the origin of the diagonal.
Ramus:Congenitally absent.
Circumflex: Small, nondominant, nearly vestigial vessel supplying a small portion of the lateral wall.
RCA: Enormous, dominant vessel with a large posterolateral arcade that supplies the inferior, inferior lateral and the majority of the lateral wall (essentially the entire circumflex territory). There is a culprit, 90% lesion in the mid RCA. 70%
lesion in the second posterolateral branch.
Exam
General: Well Developed, Well Nourished and Comfortable
HEENT: Normocephalic, Anicteric, Moist Mucous Membranes and PERRLA
Neck: Trachea Midline
Respiratory: Clear
Cardiac: S1/S2 and Regular Rhythm
GI: Soft, Non Tender, Non Distended, Normal Bowel Sounds and Other (obese)
Rectal: Deferred by Provider
Skin: Warm and Dry
Neuro: AO x 3, No Motor Deficits and CN X-XII Intact
Extremities: Pulses (+2/4 DP pulses B/L) and Other (R wrist compression band intact s/p cath-no bleeding)
Lymph: No Lymphadenopathy
Psych: Calm
Assessment / Plan
-
59 year old male admitted with NSTEMI, found to have left main/triple vessel coronary disease. HFrEF (40-45%)
- no beta mercedes due to sinus bradycardia
- surgeon to review imaging and speak with patient
- pre-op diagnostics ordered
- HOLD Lisinopril to reduce postop vasoplegia
Data Reviewed
-
EKG: Report Reviewed by me and Discussed with Physician
Dance Choreographer: Report Reviewed by me and Discussed with Physician
Echo: Report Reviewed by me and Discussed with Physician
Radiology: Report Reviewed by me and Discussed with Physician
Labs: Labs Reviewed by me and Discussed with Physician
--- NOTE | 2025-02-04 11:30 | PTCARENOTE ---
no change from previous assessment
--- NOTE | 2025-02-04 13:28 | W.PN.HOSP.TC ---
Today's Communication/Plan
-
Continue with current cardiac treatment regimen.
Continue with IV Lasix
Await CT surgery input
Assessment / Plan
Assessment / Plan
IMPRESSION:
59-year-old with past medical history of hyperlipidemia, on diet control for prediabetes, prior provoked DVT status post anticoagulation presenting to the emergency department with chest pain and found to have elevated troponin and flipped T waves
on EKG. He is currently chest pain-free, hemodynamically stable and in no acute distress. Troponin was 0.48. Rest of his labs unremarkable.
PLAN:
NSTEMI
Obstructive coronary artery disease; s/p cardiac cath 02/04
Mildly elevated left ventricular end-diastolic pressure suggestive of acute CHF. Unknown EF.
- No further chest pain. Troponin peaked at 7.7 which is trending down.
-Continue aspirin 81 daily
-Continue statin (rosuvastatin)
- IV diuretics per cardiology
- Await echocardiogram.
- Await CT surgery input
Elevated blood pressure-suspect essential hypertension
Initiated on lisinopril by cardiology. Blood pressure under goal.
DVT prophylaxis on heparin drip
CODE STATUS�full code
Anticipated Discharge: > 48 hours
Subjective/Interval History
-
Date of Service: February 04, 2025
No further chest pain. Denies shortness of breath.
Denies lightheadedness.
Tolerating diet.
Objective Data
-
Labs:
Laboratory Results
02/04/25 02/04/25 02/04/25
04:39 04:39 04:39
WBC 9.6
Hgb 14.7
Hct 44.4
Plt Count 213
PT 14.2 Cancelled
INR 1.07 Cancelled
APTT 118.7 H
Sodium 140
Potassium 3.4 L
Chloride 114 H
Carbon Dioxide 20 L
BUN 20
Creatinine 0.6 L
Glucose 95
Calcium 8.5
02/04/25
11:40
WBC
Hgb
Hct
Plt Count
PT
INR
APTT Pending
Sodium
Potassium
Chloride
Carbon Dioxide
BUN
Creatinine
Glucose
Calcium
Vital Signs:
Vital Signs
Temp Pulse Resp BP Pulse Ox
98 F 68 16 113/79 96
02/04/25 11:02 02/04/25 11:02 02/04/25 10:03 02/04/25 03:07 02/04/25 11:02
I&O
02/03/25 02/04/25 02/05/25
06:59 06:59 06:59
Intake Total 930 / 930 192 / 192
Output Total 1500 / 1500 2750 / 2750
Balance -570 / -570 -2558 / -2558
Physical Exam
-
General: Comfortable
Respiratory: Clear to Auscultation and Non Labored Respirations; Negative Accessory Resp Muscle Use
Cardiac: Regular Rhythm and S1/S2; Negative Tachycardic
Neuro: AO x 3
Psych: Calm
Data Reviewed
-
Labs: Labs Reviewed by me
[2025-02-04] MEDS: LASIX 40 MG IV (14:36)
[2025-02-04] MEDS: HEPARIN 25000 UNITS/250 ML IV (14:37)
--- NOTE | 2025-02-04 16:11 | PTCARENOTE ---
no change from previous assessment
--- NOTE | 2025-02-04 18:09 | W.PN.UPDATE ---
Update Note
Progress Note Update
STS RISK SCORE
Procedure Type:�Isolated CABG
Perioperative Outcome Estimate %
Operative Mortality 0.825%
Morbidity & Mortality 5.05%
Stroke 0.856%
Renal Failure 0.726%
Reoperation 1.82%
Prolonged Ventilation 2.68%
Deep Sternal Wound Infection 0.321%
Long Hospital Stay (>14 days) 2.08%
Short Hospital Stay (<6 days)* 65.2%
Clinical Summary
Planned Surgery: Isolated CABG, Urgent, First cardiovascular surgery
Demographics: 59 year old, male, 112.9kg, 175cm, BMI: 36.9 kg/m�
Lab Values: Creatinine: 0.6 mg/dL, Hematocrit: 44.4%, WBC Count: 9.6 10�/�L, Platelet Count: 854797 cells/�L
Substance Abuse: Never smoker, Alcohol use: 2-7 drinks/week
Risk Factors / Comorbidities: Diabetes Mellitus , Family Hx of CAD
Vascular RF: Cerebrovascular Disease: Other CVD (DVT August 2024)
Cardiac Status: Chronic heart failure, NYHA Class II, Ejection Fraction = 43%
Coronary Artery Disease: 3 vessels diseased, Left Main Stenosis >=50%, Proximal LAD Stenosis >=70%, Non-ST Elevation ME, ME: 1 to 7 Days
[2025-02-04] MEDS: CRESTOR 20 MG PO (19:18)
[2025-02-04 20:59] LABS: APTT 72.3 Sec (23.4-35.0)
--- NOTE | 2025-02-04 21:51 | PTCARENOTE ---
Received patient at change of shift. SR with a first degree and a BBB on the monitor HR in the 0s. R radial CDI. Heparin running as per protocol, see documentation. No complaints from pt at this time, call coombs within reach.
[2025-02-05 03:38] VITALS: BP 126/74
[2025-02-05 03:54] VITALS: BMI 36.5
[2025-02-05 04:24] LABS: APTT 106.6 Sec (23.4-35.0)
[2025-02-05 05:26] LABS: Blood Urea Nitrogen 23 mg/dl (9-20); Calcium 9.5 mg/dl (8.4-10.2); Carbon Dioxide 25 mmol/L (22-30); Chloride 105 mmol/L (98-107); Estimated Creatinine Clearance 120 ml/min; Glucose 100 mg/dl (70-99); Potassium 3.9 mmol/L (3.5-5.1); Sodium 137 mmol/L (135-145); eGFR > 60.00
[2025-02-05 07:19] VITALS: BP 133/75
[2025-02-05 07:35] VITALS: BP 123/68
[2025-02-05] MEDS: HEPARIN 25000 UNITS/250 ML IV ×2 (07:46→22:56)
[2025-02-05] MEDS: LOW STRENGTH ASPIRIN 81 MG PO (07:47)
[2025-02-05] MEDS: LASIX 40 MG IV (07:47)
--- NOTE | 2025-02-05 08:15 | W.PN.CD ---
Addendum entered and electronically signed by Carlos Marquez MD 02/05/25 08:28:
patient on IV lasix will hold
Original Note:
Today's Communication / Plan
-
Stable overnight without angina. Appears euvolemic on exam.
Monitor for development of symptoms
Continue with IV heparin and aspirin
Patient not on beta-mercedes due to baseline bradycardia. Will add low-dose nitrates
Continued assessment by CT surgery for CABG
Impression / Plan
-
Impression/Plan: 59 y/o male with HTN, HLD, NIDDM and history of provoked DVT admitted with NSTEMI peak troponin 7. Cardiac catheterization with multivessel coronary artery disease including 80% distal left main, ostial LAD disease
#NSTEMI:
- Peak troponin 7
- Cardiac catheterization with multivessel coronary artery disease including 80% distal left main, ostial LAD disease
- CT surgery evaluating for CABG
# Cardiomyopathy
- EF 40 to 45%.
- Respiratory status stable. Euvolemic
- Optimize GDMT post CABG
#NSVT:
-Acute, asymptomatic. Reported on admission but none over last 24 hours
-8-beats noted yesterday (02/02/2025).
-Following clinically; no beta-mercedes secondary to baseline intrinsic bradycardia.
#DM2:
-Chronic, diet controlled.
-HgbA1C 6.3%.
-Management per primary team.
-There will be a role for GLP-1 agonists as an outpatient.
#HTN: Stable
#HLD:
-Chronic, uncontrolled.
-Total cholesterol = 207, LDL = 111, HDL = 37, Triglycerides = 416.
-Rosuvastatin 20 mg daily.
#hx DVT:
-Previously on apixaban x 3 months.
Subjective/Interval History:
Chest pain free.
Started on lisinopril/furosemide.
Weight down 1.5 kg.
Intrinsically bradycardic (40-60 bpm).
Physical Exam
Vital Signs/Labs
Vital Signs
Temp Pulse Resp BP Pulse Ox
97.9 F 56 13 123/68 96
02/05/25 07:33 02/05/25 08:00 02/05/25 07:33 02/05/25 07:35 02/05/25 08:05
02/04/25 02/05/25 02/06/25
06:59 06:59 06:59
Actual Weight 112.9 kg 112.1 kg
02/04/25 04:39
02/05/25 03:48
PT 14.2 Sec (11.4-14.6) 02/04/25 04:39
PT Cancelled 02/04/25 04:39
INR 1.07 02/04/25 04:39
INR Cancelled 02/04/25 04:39
APTT 106.6 Sec (23.4-35.0) H 02/05/25 03:48
Triglycerides 416 mg/dl (10-149) H 02/02/25 03:45
LDL Cholesterol, Calc mg/dl 02/02/25 03:45
VLDL Cholesterol, Calc mg/dl (0-30) 02/02/25 03:45
HDL Cholesterol 37 mg/dl 02/02/25 03:45
02/02/25
03:45
Gqr-P-Lyudoegncxw Pept 1290
LAB Results
02/02/25 02/02/25 02/02/25
09:01 11:17 18:43
Troponin I 3.160 H* D 4.890 H* D 7.770 H* D
02/03/25
02:04
Troponin I 6.050 H*
Physical Exam
Cardiovascular: Rhythm & rate is regular
Respiratory: Respiratory effort normal
GI: Soft
Neuro/Psych: Alert
Data Reviewed
-
Date of Service: February 05, 2025
Medical Decision Making: Reviewed Test Results
Echo: Report Reviewed by me
Medical Tests (PFT, Pathology etc): Report Reviewed by me
Labs: Labs Reviewed by me
--- NOTE | 2025-02-05 08:42 | PN.CDI ---
CDI
- -
CDI:
Physician Documentation Request
Admit Date: 02/02/25 05:13
Dear Cardiology,
Please review the following and provide your response in the progress notes.
Clinical Indicators:
- Patient admit for NSTEMI
- CT surgery eval for CABG
- 02/04 Echo EF 40-45%
- 'Stage I diastolic dysfunction'
- 'multiple regional wall motion abnormalities'
- 40mg IV Lasix given Daily
- 02/05 Cardiology 'Cardiomyopathy'
Laboratory Tests
02/02/25
03:45
Kpr-Z-Zxmeyhnsgnf Pept 1290
Based on your medical judgment, can you please provide a diagnosis, if any, associated with the above findings
Acute HFrEF
Cardiomyopathy only
Other (please specify)
Use of terms such as suspected, likely, concern for, or probable (associated with a specific diagnosis that is being evaluated, monitored, or treated as if it exists) are acceptable and can be coded in the inpatient setting, when documented at the
time of discharge.
Thank you,
Rodney Logan RN
CDI Specialist
Please use your independent medical judgment in providing your response.
--- NOTE | 2025-02-05 10:15 | W.PN.HOSP.TC ---
Today's Communication/Plan
-
Await CT surgery eval
Assessment / Plan
Assessment / Plan
IMPRESSION:
59-year-old with past medical history of hyperlipidemia, on diet control for prediabetes, prior provoked DVT status post anticoagulation presenting to the emergency department with chest pain and found to have elevated troponin and flipped T waves
on EKG. He is currently chest pain-free, hemodynamically stable and in no acute distress. Troponin was 0.48. Rest of his labs unremarkable.
PLAN:
NSTEMI
Obstructive coronary artery disease; s/p cardiac cath 02/04
Mildly elevated left ventricular end-diastolic pressure suggestive of acute CHmrEF.
- No further chest pain. Troponin peaked at 7.7 which is trending down.
-Continue aspirin 81 daily
-Continue statin (rosuvastatin)
- Continue IV diuretics per cardiology. Lost 15 pounds
- Echo shows EF of 40 to 45%
- Await CT surgery input
Elevated blood pressure-suspect essential hypertension
Initiated on lisinopril by cardiology. Blood pressure under goal.
DVT prophylaxis on heparin drip
CODE STATUS�full code
Anticipated Discharge: 24 - 48 hours
Subjective/Interval History
-
Date of Service: February 05, 2025
Patient without chest pain or shortness of breath. He voices no other specific complaints.
Objective Data
-
Labs:
Laboratory Results
02/05/25 02/05/25
03:48 09:50
APTT 106.6 H Pending
Sodium 137
Potassium 3.9
Chloride 105
Carbon Dioxide 25
BUN 23 H
Creatinine 0.8
Glucose 100 H
Calcium 9.5
Vital Signs:
Vital Signs
Temp Pulse Resp BP Pulse Ox
97.9 F 56 13 123/68 96
02/05/25 07:33 02/05/25 08:00 08/19/25 07:33 02/05/25 07:35 02/05/25 08:05
I&O
02/04/25 02/05/25 02/06/25
06:59 06:59 06:59
Intake Total 192 / 192
Output Total 2750 / 2750 3900 / 3900 350 / 350
Balance -2558 / -2558 -3900 / -3900 -334 / -334
Physical Exam
-
General: Comfortable
Respiratory: Clear to Auscultation and Non Labored Respirations; Negative Accessory Resp Muscle Use
Cardiac: Regular Rhythm and S1/S2
Neuro: AO x 3
Psych: Calm
Data Reviewed
-
Labs: Labs Reviewed by me
[2025-02-05 10:57] LABS: APTT 49.2 Sec (23.4-35.0)
[2025-02-05 11:38] VITALS: BP 120/72
[2025-02-05] MEDS: NITRO-BID 0.5 INCH TOPICAL ×3 (13:14→22:57)
--- NOTE | 2025-02-05 14:52 | CM ---
Reviewed chart. Met with Mr. Castro to review discharge plans. He states prior to admission he resides with his brother in a two story home with three steps to enter. He states he has a full flight of steps to get to bedroom/full bathroom. He
states he does not a powder room on the first floor. He states prior to admission he was independent with ambulation and adls. He states he does not have any DME in the home. He states he has a prescription plan. Medical work-up in progress.
The discharge plan is to return home with his brother when medically stable.
[2025-02-05 15:00] VITALS: BP 125/68
[2025-02-05 18:14] LABS: APTT 135.5 Sec (23.4-35.0)
[2025-02-05] MEDS: METAMUCIL, KONSYL 1 PACKET PO (18:32)
[2025-02-05] MEDS: CRESTOR 20 MG PO (18:32)
[2025-02-05 22:46] VITALS: BP 122/79
[2025-02-06] VITALS (7 sets, daily range): BP systolic 119–137; BP diastolic 73–82; BMI 36.2
--- NOTE | 2025-02-06 00:46 | W.PN.CT ---
Today's Communication / Plan
-
Plan:
-Cont. current meddical management per primary team
-Cont. current meds (ASA, Heparin gtt, Nitro-Bid, Crestor)
-Holding Lisinopril
-Avoid CRISTHIAN-I/ARBs/CCB x48hrs prior to CABG
-Ongoing preop evaluation/workup
-For CABG +/- LAAE by Dr. Bernal on 02/08/25
Assessment / Plan
-
Assessment:
-Multivessel CAD (LM: 80% distal, LAD: 80-90% ostial, RCA: 90% mid, 70% 2nd PLB)
-NSTEMI (peak trop 7.770)
-[place]
-Hyperlipidemia
-T2DM (A1C 6.3, on diet only)
-Class 2 obesity (BMI 36.5)
-Hx LLE DVT-Spring 2024-treated w/Eliquis x 3 months
-S/P Left eustachian tube repair
Discussed patient care with: Cardiology, Nursing, Respiratory Therapy, Pharmacy and Care Team
Subjective
-
Date of Service: February 06, 2025
No issues overnight, denies chest pain and sob
Objective Data
-
PT 14.2 Sec (11.4-14.6) 02/04/25 04:39
PT Cancelled 02/04/25 04:39
INR 1.07 02/04/25 04:39
INR Cancelled 02/04/25 04:39
APTT 135.5 Sec (23.4-35.0) H 02/05/25 17:56
Vital Signs
Vital Signs
Temp Pulse Resp BP Pulse Ox
98.4 F 56 18 122/79 97
02/05/25 15:02 02/06/25 00:30 02/05/25 15:02 02/05/25 22:46 02/05/25 15:02
CT Intake/Output/Weight
02/05/25 02/05/25 02/06/25
06:59 18:59 06:59
Intake Total 976 / 976
Output Total 900 / 3900 1350 / 1350
Balance -900 / -3900 -374 / -374
SaO2: 97 (RA)
Physical Exam
-
General: Awake, Oriented and AOx3
Cardiovascular: Regular rate & rhythm, No Murmurs and No Gallop
Respiratory: Clear
Extremities: No Edema
Data Reviewed
-
Lab Results: Results Reviewed
Medications: Active Meds Reviewed
Chest X-Ray: Report Reviewed and Image Reviewed
ECG: Report Reviewed and Image Reviewed
--- NOTE | 2025-02-06 03:01 | PTCARENOTE ---
Pt with no c/o cp at this time. Slightly dyspneic with exertion. am labs completed.
[2025-02-06 03:25] LABS: APTT 75.5 Sec (23.4-35.0)
[2025-02-06 03:28] LABS: Hematocrit 43.0 % (39.0-52.0); Hemoglobin 14.7 g/dL (13.0-18.0); Mean Corp Hgb Conc. 34.2 g/dL (33.0-37.0); Mean Corpuscular Volume 85.1 fL (80.0-94.0); Platelet Count 221 10^3/uL (130-400); Red Cell Dist. Width 13.8 % (11.5-14.5)
[2025-02-06 03:33] LABS: Blood Urea Nitrogen 21 mg/dl (9-20); Calcium 9.4 mg/dl (8.4-10.2); Carbon Dioxide 25 mmol/L (22-30); Chloride 103 mmol/L (98-107); Estimated Creatinine Clearance 119 ml/min; Glucose 115 mg/dl (70-99); Magnesium 2.1 mg/dl (1.6-2.3); Potassium 3.8 mmol/L (3.5-5.1); Sodium 135 mmol/L (135-145); eGFR > 60.00
[2025-02-06] MEDS: NITRO-BID 0.5 INCH TOPICAL ×4 (09:18→23:59)
[2025-02-06] MEDS: LOW STRENGTH ASPIRIN 81 MG PO (09:19)
[2025-02-06] MEDS: METAMUCIL, KONSYL 1 PACKET PO (09:19)
[2025-02-06 09:58] LABS: APTT 111.6 Sec (23.4-35.0)
--- NOTE | 2025-02-06 10:25 | W.PN.HOSP.TC ---
Today's Communication/Plan
-
Continue current medical treatment
Await CABG
Assessment / Plan
Assessment / Plan
IMPRESSION:
59-year-old with past medical history of hyperlipidemia, on diet control for prediabetes, prior provoked DVT status post anticoagulation presenting to the emergency department with chest pain and found to have elevated troponin and flipped T waves
on EKG. He is currently chest pain-free, hemodynamically stable and in no acute distress. Troponin was 0.48. Rest of his labs unremarkable.
PLAN:
NSTEMI
Obstructive coronary artery disease; s/p cardiac cath 02/04
Mildly elevated left ventricular end-diastolic pressure suggestive of acute CHmrEF.
- No further chest pain. Troponin peaked at 7.7 which is trending down.
-Continue aspirin 81 daily
-Continue statin (rosuvastatin)
- Continue IV diuretics per cardiology. Lost 15 pounds
- Echo shows EF of 40 to 45%
- CT surgery planning CABG on 02/08/2025
Elevated blood pressure-suspect essential hypertension
Initiated on lisinopril by cardiology. Blood pressure under goal.
DVT prophylaxis on heparin drip
CODE STATUS�full code
Anticipated Discharge: Within 24 hours
Subjective/Interval History
-
Date of Service: February 06, 2025
No chest pains or shortness of breath. Voices no specific complaints.
No lightheadedness.
Tolerating diet.
Objective Data
-
Labs:
Laboratory Results
02/06/25 02/06/25
02:52 09:34
WBC 9.0
Hgb 14.7
Hct 43.0
Plt Count 221
APTT 75.5 H 111.6 H
Sodium 135
Potassium 3.8
Chloride 103
Carbon Dioxide 25
BUN 21 H
Creatinine 0.8
Glucose 115 H
Calcium 9.4
Vital Signs:
Vital Signs
Temp Pulse Resp BP Pulse Ox
98.1 F 68 20 137/76 96
02/06/25 06:56 02/06/25 09:00 02/06/25 06:56 02/06/25 06:57 02/06/25 09:15
I&O
02/05/25 02/06/25 02/07/25
06:59 06:59 06:59
Intake Total 976 / 976
Output Total 3900 / 3900 1350 / 1350
Balance -3900 / -3900 -374 / -374
Physical Exam
-
General: No Apparent Distress
Respiratory: Clear to Auscultation and Non Labored Respirations; Negative Accessory Resp Muscle Use
Cardiac: Regular Rhythm and S1/S2
Neuro: AO x 3
Psych: Calm; Negative Confused
Data Reviewed
-
Labs: Labs Reviewed by me
--- NOTE | 2025-02-06 14:37 | W.PN.CD ---
Today's Communication / Plan
-
CABG planning.
Impression / Plan
-
Impression/Plan: 59 y/o male with HTN, HLD, NIDDM and history of provoked DVT admitted with NSTEMI; subsequent cardiac catheterization revealed multivessel coronary artery disease.
#NSTEMI:
-Acute, threat to life.
-Peak troponin 7
-Cardiac catheterization with multivessel coronary artery disease including 80% distal left main, ostial LAD disease.
-CABG tentatively 02/08/2025.
#Ischemic Cardiomyopathy
-New diagnosis.
-LVEF 40 to 45%.
-Respiratory status stable. No evidence of decompensation.
-GDMT as hemodynamics and surgical planning will permit:
-Diuretics: Discontinued.
-Beta Yovanny: None due to baseline bradycardia.
-ACEI/ARB/ARNi: Lisinopril 10 mg on hold prior to surgery.
-MRA: None.
-SGLT2i: Anticipate dapagliflozin 10 mg daily after surgery.
-ICD: Not currently indicated.
#NSVT:
-Acute, asymptomatic. Reported on admission but none over last 24 hours
-8-beats noted on 02/02/2025.
-Following clinically; no beta-yovanny secondary to baseline intrinsic bradycardia.
#DM2:
-Chronic, diet controlled.
-HgbA1C 6.3%.
-Management per primary team.
-There will be a role for GLP-1 agonists as an outpatient.
#HTN:
-Chronic, stable.
#HLD:
-Chronic, uncontrolled.
-Total cholesterol = 207, LDL = 111, HDL = 37, Triglycerides = 416.
-Rosuvastatin 20 mg daily.
#hx DVT:
-Previously on apixaban x 3 months.
-Chronic, non-occlusive thrombus identified in the bilateral great saphenous veins.
-We will consider restarting therapeutic anticoagulation after surgery.
Subjective/Interval History:
No acute events.
No subjective complaints.
CABG planning ongoing.
Duplex reveals non-occlusive thrombus in the bilateral great saphenous veins.
DATA:
Chest CT, 02/04/2025:
IMPRESSION:
Ascending aorta has top of caliber with short axis diameter 4.0 cm at the level the right main pulmonary artery. There is no significant calcification of the ascending aorta.
Moderate calcification involving the inferior aortic arch in the region of the ligamentum arteriosum.
2 focal areas of linear and groundglass opacity, one within the posterior aspect of the right lower lobe and the second within the posterior aspect of the left lower lobe. Morphologically, the appearance is highly suggestive of focal areas of
scarring. It is probably prudent to obtain a follow-up CT of the chest with suggested timeframe of 6 months initially.
Fatty infiltration of the liver.
Incompletely visualized predominantly cystic mass arising in the right kidney, which appears to have peripheral calcification. This is likely a benign peripherally calcified cystic mass, but is incompletely visualized. Therefore further evaluation
is advised, to begin with a dedicated renal ultrasound.
Carotid US, 02/04/2025:
IMPRESSION:
RIGHT: No significant carotid plaque identified. Carotid velocity measurements are consistent with less than 50% internal carotid artery stenosis. Vertebral artery flow is antegrade.
LEFT: Mixed plaque is identified in the carotid bulb. Carotid velocity measurements are consistent with less than 50% internal carotid artery stenosis. Vertebral artery flow is antegrade.
LLE Duplex, 02/04/2025:
IMPRESSION:
RIGHT LOWER EXTREMITY: Vein diameters are as listed above. Chronic nonocclusive wall adherent thrombus identified in the great saphenous vein from the knee to the mid thigh. Wall thickening identified in the small saphenous vein.
LEFT LOWER EXTREMITY: Vein diameters are as listed above. Chronic nonocclusive wall adherent thrombus identified in the great saphenous vein at the knee and distal thigh segments.
Cardiac Catheterization, 02/04/2025:
CONCLUSIONS
1. Right dominant circulation with an enormous RCA that serves the right coronary and circumflex territories with a culprit 90% lesion in the mid RCA and a 70% lesion in the second posterolateral branch as well as an 80% lesion in the distal left
main coronary artery leading into an 80-90% lesion in the ostium of the LAD as well as a vestigial circumflex.
2. Mildly elevated filling pressures (LVEDP = 14 mmHg at 112.5 kg).
TTE, 02/04/2025:
SUMMARY
1. Left ventricle is mildly dilated with mildly reduced systolic function. LVEF 40-45%.
2. Hypokinesis of the mid to apical anterolateral/inferolateral wall, basal to apical inferior wall, and apex.
3. No significant valvular disease.
4. Ectatic aortic root (3.9 cm).
5. No prior study available for comparison.
Physical Exam
Vital Signs/Labs
Vital Signs
Temp Pulse Resp BP Pulse Ox
36.8 C 64 20 121/78 95
02/06/25 10:58 02/06/25 12:30 02/06/25 10:58 02/06/25 10:57 02/06/25 10:58
02/05/25 02/06/25 02/07/25
11:59 11:59 11:59
Actual Weight 112.1 kg 111.2 kg
02/06/25 02:52
02/06/25 02:52
PT 14.2 Sec (11.4-14.6) 02/04/25 04:39
PT Cancelled 02/04/25 04:39
INR 1.07 02/04/25 04:39
INR Cancelled 02/04/25 04:39
APTT 111.6 Sec (23.4-35.0) H 02/06/25 09:34
Magnesium 2.1 mg/dl (1.6-2.3) 02/06/25 02:52
Triglycerides 416 mg/dl (10-149) H 02/02/25 03:45
LDL Cholesterol, Calc mg/dl 02/02/25 03:45
VLDL Cholesterol, Calc mg/dl (0-30) 02/02/25 03:45
HDL Cholesterol 37 mg/dl 02/02/25 03:45
02/02/25
03:45
Gyw-S-Otviaxplifa Pept 1290
Physical Exam
Constitutional: No acute distress and Comfortable
EENT: Anicteric and Moist mucous membranes
Cardiovascular: Rhythm & rate is regular, Pedal edema is absent, JVD pressure is normal, S1S2 is normal and Murmur/rub/gallop absent
Respiratory: Respiratory effort normal, Lungs clear to auscul., Wheeze Absent, Crackles Absent and Rhonchi Absent
GI: Soft, Distention absent, Flat, Non tender and Normal bowel sounds
Neuro/Psych: AO x 3
Data Reviewed
-
Date of Service: February 06, 2025
Medical Decision Making: Reviewed Test Results, Independent Historian Assessment and Test Interpretation
EKG: Tracing Personally Visualized and interpreted and Report Reviewed by me
Echo: Tracing Personally Visualized and interpreted and Report Reviewed by me
X-Ray/CT/US/MRI/NUC/PET: Image Personally Visualized and interpreted and Report Reviewed by me
Medical Tests (PFT, Pathology etc): Image Personally Visualized and interpreted and Report Reviewed by me
Labs: Labs Reviewed by me
[2025-02-06] MEDS: HEPARIN 25000 UNITS/250 ML IV (15:10)
--- NOTE | 2025-02-06 15:47 | W.PN.UPDATE ---
Update Note
Progress Note Update
CARDIAC SURGERY ATTENDING:
It was my pleasure meeting with Mr. Ronal Castro again today. His brothers were present during our discussions. I once again reviewed his coronary pathology, discussed the planned operative interventions, reviewed the periprocedural risks
(including, but not limited to, , stroke, [place], arrhythmia, PNA, JOSE/F, bleeding, infection, and sternal wound healing issues), discussed expected and hospital postprocedural course, and reviewed the expected outpatient recovery. All questions
were answered to the best of my abilities. The patient is agreeable to proceed. I have tentatively scheduled him for operative intervention this coming 02/09/2025. I plan to use JEFFREY with ERIN to LAD and ELISE to distal RCA and his left
radial artery to his R PLB branch. I plan for concurrent exclusion of his left atrial appendage.
Thank you for the opportunity to precipitate in the care of this kind gentleman.
Please call with any questions or concerns.
Warren Bernal MD
[phone]
[2025-02-06 18:13] LABS: APTT 63.8 Sec (23.4-35.0)
[2025-02-06] MEDS: CRESTOR 20 MG PO (18:35)
--- NOTE | 2025-02-06 19:32 | PTCARENOTE ---
Pt denies any discomfort, encouraged to be OOB and walk in halls which he did without problem. Telemetry shows sinus rhythm with first degree AV block, one run of 4 beats NSVT noted. Heparin still not quite therpeutic.
[2025-02-07] VITALS (7 sets, daily range): BP systolic 112–145; BP diastolic 61–86
[2025-02-07 01:04] LABS: APTT 78.2 Sec (23.4-35.0)
--- NOTE | 2025-02-07 01:32 | PTCARENOTE ---
assumed care of patient at the change of shift. AAOx3. independent in the room. cp free. heparin gtt infusing per protocol. SB/SR with a first degree on tele 50s-60s. OR prep reviewed with patient. questions answered. call coombs within reach. makes
needs known.
[2025-02-07] MEDS: NITRO-BID 0.5 INCH TOPICAL ×4 (06:16→23:08)
[2025-02-07] MEDS: HEPARIN 25000 UNITS/250 ML IV ×2 (06:17→21:41)
[2025-02-07 07:11] LABS: APTT 101.4 Sec (23.4-35.0)
[2025-02-07 07:24] LABS: Blood Urea Nitrogen 15 mg/dl (9-20); Calcium 9.2 mg/dl (8.4-10.2); Carbon Dioxide 24 mmol/L (22-30); Chloride 105 mmol/L (98-107); Estimated Creatinine Clearance > 125 ml/min; Glucose 109 mg/dl (70-99); Magnesium 2.2 mg/dl (1.6-2.3); Potassium 4.3 mmol/L (3.5-5.1); Sodium 135 mmol/L (135-145); eGFR > 60.00
[2025-02-07] MEDS: LOW STRENGTH ASPIRIN 81 MG PO (09:09)
[2025-02-07] MEDS: METAMUCIL, KONSYL 1 PACKET PO (09:09)
--- NOTE | 2025-02-07 09:52 | W.PN.HOSP.TC ---
Today's Communication/Plan
-
For CABG tomorrow
Assessment / Plan
Assessment / Plan
IMPRESSION:
59-year-old with past medical history of hyperlipidemia, on diet control for prediabetes, prior provoked DVT status post anticoagulation presenting to the emergency department with chest pain and found to have elevated troponin and flipped T waves
on EKG. He is currently chest pain-free, hemodynamically stable and in no acute distress. Troponin was 0.48. Rest of his labs unremarkable.
PLAN:
NSTEMI
Obstructive coronary artery disease; s/p cardiac cath 02/04
Mildly elevated left ventricular end-diastolic pressure suggestive of acute CHmrEF.
- No further chest pain. Troponin peaked at 7.7 have trended down since
-Continue aspirin 81 daily
-Continue statin (rosuvastatin)
- Continue IV diuretics per cardiology. Weight improving
- Echo shows EF of 40 to 45%
- CT surgery planning CABG on 02/08/2025
Elevated blood pressure-suspect essential hypertension
Initiated on lisinopril by cardiology. Blood pressure under goal.
DVT prophylaxis on heparin drip
CODE STATUS�full code
Anticipated Discharge: Within 24 hours
Subjective/Interval History
-
Date of Service: February 07, 2025
No further chest pains or shortness of breath. Remains asymptomatic.
Objective Data
-
Labs:
Laboratory Results
02/07/25 02/07/25
00:06 06:21
APTT 78.2 H 101.4 H
Sodium 135
Potassium 4.3
Chloride 105
Carbon Dioxide 24
BUN 15
Creatinine 0.7
Glucose 109 H
Calcium 9.2
Vital Signs:
Vital Signs
Temp Pulse Resp BP Pulse Ox
98.6 F 52 20 121/75 94
02/07/25 07:48 02/07/25 07:45 02/07/25 07:48 02/07/25 07:44 02/07/25 07:48
I&O
02/06/25 02/07/25 02/08/25
06:59 06:59 06:59
Intake Total 976 / 976
Output Total 1350 / 1350 2800 / 2800
Balance -374 / -374 -2800 / -2800
Physical Exam
-
General: Comfortable
Respiratory: Clear to Auscultation and Non Labored Respirations; Negative Accessory Resp Muscle Use
Cardiac: Regular Rhythm and S1/S2; Negative Tachycardic
Neuro: AO x 3
Data Reviewed
-
Labs: Labs Reviewed by me
--- NOTE | 2025-02-07 10:38 | W.PN.CD ---
Today's Communication / Plan
-
CABG planning.
Impression / Plan
-
Impression/Plan: 59 y/o male with HTN, HLD, NIDDM and history of provoked DVT admitted with NSTEMI; subsequent cardiac catheterization revealed multivessel coronary artery disease.
#NSTEMI:
-Acute, threat to life.
-Peak troponin 7.
-Cardiac catheterization with multivessel coronary artery disease.
-CABG tentatively 02/08/2025.
#Ischemic Cardiomyopathy
-New diagnosis.
-LVEF 40 to 45%.
-Respiratory status stable. No evidence of decompensation.
-GDMT as hemodynamics and surgical planning will permit:
-Diuretics: Discontinued.
-Beta Yovanny: None due to baseline bradycardia.
-ACEI/ARB/ARNi: Lisinopril 10 mg on hold prior to surgery.
-MRA: None.
-SGLT2i: Anticipate dapagliflozin 10 mg daily after surgery.
-ICD: Not currently indicated.
#NSVT:
-Acute, asymptomatic. Reported on admission but none over last 24 hours
-8-beats noted on 02/02/2025.
-Following clinically; no beta-yovanny secondary to baseline intrinsic bradycardia.
#DM2:
-Chronic, diet controlled.
-HgbA1C 6.3%.
-Management per primary team.
-There will be a role for GLP-1 agonists as an outpatient.
#HTN:
-Chronic, stable.
#HLD:
-Chronic, uncontrolled.
-Total cholesterol = 207, LDL = 111, HDL = 37, Triglycerides = 416.
-Rosuvastatin 20 mg daily.
#hx DVT:
-Previously on apixaban x 3 months.
-Chronic, non-occlusive thrombus identified in the bilateral great saphenous veins.
-We will consider restarting therapeutic anticoagulation after surgery.
Subjective/Interval History:
No acute events.
No subjective complaints.
DATA:
Chest CT, 02/04/2025:
IMPRESSION:
Ascending aorta has top of caliber with short axis diameter 4.0 cm at the level the right main pulmonary artery. There is no significant calcification of the ascending aorta.
Moderate calcification involving the inferior aortic arch in the region of the ligamentum arteriosum.
2 focal areas of linear and groundglass opacity, one within the posterior aspect of the right lower lobe and the second within the posterior aspect of the left lower lobe. Morphologically, the appearance is highly suggestive of focal areas of
scarring. It is probably prudent to obtain a follow-up CT of the chest with suggested timeframe of 6 months initially.
Fatty infiltration of the liver.
Incompletely visualized predominantly cystic mass arising in the right kidney, which appears to have peripheral calcification. This is likely a benign peripherally calcified cystic mass, but is incompletely visualized. Therefore further evaluation
is advised, to begin with a dedicated renal ultrasound.
Carotid US, 02/04/2025:
IMPRESSION:
RIGHT: No significant carotid plaque identified. Carotid velocity measurements are consistent with less than 50% internal carotid artery stenosis. Vertebral artery flow is antegrade.
LEFT: Mixed plaque is identified in the carotid bulb. Carotid velocity measurements are consistent with less than 50% internal carotid artery stenosis. Vertebral artery flow is antegrade.
LLE Duplex, 02/04/2025:
IMPRESSION:
RIGHT LOWER EXTREMITY: Vein diameters are as listed above. Chronic nonocclusive wall adherent thrombus identified in the great saphenous vein from the knee to the mid thigh. Wall thickening identified in the small saphenous vein.
LEFT LOWER EXTREMITY: Vein diameters are as listed above. Chronic nonocclusive wall adherent thrombus identified in the great saphenous vein at the knee and distal thigh segments.
Cardiac Catheterization, 02/04/2025:
CONCLUSIONS
1. Right dominant circulation with an enormous RCA that serves the right coronary and circumflex territories with a culprit 90% lesion in the mid RCA and a 70% lesion in the second posterolateral branch as well as an 80% lesion in the distal left
main coronary artery leading into an 80-90% lesion in the ostium of the LAD as well as a vestigial circumflex.
2. Mildly elevated filling pressures (LVEDP = 14 mmHg at 112.5 kg).
TTE, 02/04/2025:
SUMMARY
1. Left ventricle is mildly dilated with mildly reduced systolic function. LVEF 40-45%.
2. Hypokinesis of the mid to apical anterolateral/inferolateral wall, basal to apical inferior wall, and apex.
3. No significant valvular disease.
4. Ectatic aortic root (3.9 cm).
5. No prior study available for comparison.
Physical Exam
Vital Signs/Labs
Vital Signs
Temp Pulse Resp BP Pulse Ox
37.0 C 52 20 121/75 94
02/07/25 07:48 02/07/25 07:45 02/07/25 07:48 02/07/25 07:44 02/07/25 07:48
02/05/25 02/06/25 02/07/25
11:59 11:59 11:59
Actual Weight 112.1 kg 111.2 kg
02/06/25 02:52
02/07/25 06:21
PT 14.2 Sec (11.4-14.6) 02/04/25 04:39
PT Cancelled 02/04/25 04:39
INR 1.07 02/04/25 04:39
INR Cancelled 02/04/25 04:39
APTT 101.4 Sec (23.4-35.0) H 02/07/25 06:21
Magnesium 2.2 mg/dl (1.6-2.3) 02/07/25 06:21
Triglycerides 416 mg/dl (10-149) H 02/02/25 03:45
LDL Cholesterol, Calc mg/dl 02/02/25 03:45
VLDL Cholesterol, Calc mg/dl (0-30) 02/02/25 03:45
HDL Cholesterol 37 mg/dl 02/02/25 03:45
02/02/25
03:45
[id number] Pept 1290
Physical Exam
Constitutional: No acute distress and Comfortable
EENT: Anicteric and Moist mucous membranes
Cardiovascular: Rhythm & rate is regular, Pedal edema is absent, JVD pressure is normal, S1S2 is normal and Murmur/rub/gallop absent
Respiratory: Respiratory effort normal, Lungs clear to auscul., Wheeze Absent, Crackles Absent and Rhonchi Absent
GI: Soft, Distention absent, Flat, Non tender and Normal bowel sounds
Neuro/Psych: AO x 3
Data Reviewed
-
Date of Service: February 07, 2025
Medical Decision Making: Reviewed Test Results, Independent Historian Assessment and Test Interpretation
EKG: Tracing Personally Visualized and interpreted and Report Reviewed by me
Echo: Tracing Personally Visualized and interpreted and Report Reviewed by me
X-Ray/CT/US/MRI/NUC/PET: Image Personally Visualized and interpreted and Report Reviewed by me
Medical Tests (PFT, Pathology etc): Image Personally Visualized and interpreted and Report Reviewed by me
Labs: Labs Reviewed by me
Old Records: Reviewed
[2025-02-07] MEDS: CRESTOR 20 MG PO (18:05)
--- NOTE | 2025-02-07 19:14 | PTCARENOTE ---
Pt denies any discomfort, OOB to the chair and up in his room. Heparin infusion therapeutic. Telemetry shows sinus rhythm with first degree AV block, rare PVC's. Plan for surgery date to be determined.
[2025-02-08] VITALS (7 sets, daily range): BP systolic 118–136; BP diastolic 70–84
--- NOTE | 2025-02-08 00:06 | PTCARENOTE ---
assumed care of patient at the change of shift. AAOx3. family at the bedside. denies any cp/sob. dyspnea on exertion noted- patient denies. SB/SR on tele with a first degree AVB 50s-60s. heparin gtt infusing per order. okay to shower order placed by
Megan HAMPTON PA. patient tolerated. resting in bed. educated to call RN with any changes.
[2025-02-08 03:12] LABS: Hematocrit 43.2 % (39.0-52.0); Hemoglobin 14.7 g/dL (13.0-18.0); Mean Corp Hgb Conc. 34.0 g/dL (33.0-37.0); Mean Corpuscular Volume 85.7 fL (80.0-94.0); Platelet Count 198 10^3/uL (130-400); Red Cell Dist. Width 13.8 % (11.5-14.5)
[2025-02-08 03:27] LABS: APTT 100.0 Sec (23.4-35.0)
--- NOTE | 2025-02-08 07:40 | W.PN.CD ---
Today's Communication / Plan
-
CABG planning.
CABG now deferred to 02/13/2025.
Impression / Plan
-
Impression/Plan: 59 y/o male with HTN, HLD, NIDDM and history of provoked DVT admitted with NSTEMI; subsequent cardiac catheterization revealed multivessel coronary artery disease.
#NSTEMI:
-Acute, threat to life.
-Peak troponin 7.
-Cardiac catheterization with multivessel coronary artery disease.
-CABG planning.
-Given the delay in surgery availability, I offered the patient the option of remaining inpatient until his surgery or discharge with medical management of his NSTEMI and planned admission for CABG next week.
-The patient elected to remain inpatient prior to surgery.
#Ischemic Cardiomyopathy
-New diagnosis.
-LVEF 40 to 45%.
-Respiratory status stable. No evidence of decompensation.
-GDMT as hemodynamics and surgical planning will permit:
-Diuretics: Discontinued.
-Beta Yovanny: None due to baseline bradycardia.
-ACEI/ARB/ARNi: Lisinopril 10 mg on hold prior to surgery.
-MRA: None.
-SGLT2i: Anticipate dapagliflozin 10 mg daily after surgery.
-ICD: Not currently indicated.
#NSVT:
-Acute, asymptomatic. Reported on admission but none over last 24 hours
-8-beats noted on 02/02/2025.
-Following clinically; no beta-yovanny secondary to baseline intrinsic bradycardia.
#DM2:
-Chronic, diet controlled.
-HgbA1C 6.3%.
-Management per primary team.
-There will be a role for GLP-1 agonists as an outpatient.
#HTN:
-Chronic, mild/moderately hypertensive yesterday.
-Restart lisinopril 10 mg daily.
#HLD:
-Chronic, uncontrolled.
-Total cholesterol = 207, LDL = 111, HDL = 37, Triglycerides = 416.
-Rosuvastatin 20 mg daily.
#hx DVT:
-Previously on apixaban x 3 months.
-Chronic, non-occlusive thrombus identified in the bilateral great saphenous veins.
-We will consider restarting therapeutic anticoagulation after surgery.
Subjective/Interval History:
No acute events.
No subjective complaints.
Unfortunately, surgery is not available for CABG today. The patient will likely be rescheduled for next Tuesday (02/13/2025).
DATA:
Chest CT, 02/04/2025:
IMPRESSION:
Ascending aorta has top of caliber with short axis diameter 4.0 cm at the level the right main pulmonary artery. There is no significant calcification of the ascending aorta.
Moderate calcification involving the inferior aortic arch in the region of the ligamentum arteriosum.
2 focal areas of linear and groundglass opacity, one within the posterior aspect of the right lower lobe and the second within the posterior aspect of the left lower lobe. Morphologically, the appearance is highly suggestive of focal areas of
scarring. It is probably prudent to obtain a follow-up CT of the chest with suggested timeframe of 6 months initially.
Fatty infiltration of the liver.
Incompletely visualized predominantly cystic mass arising in the right kidney, which appears to have peripheral calcification. This is likely a benign peripherally calcified cystic mass, but is incompletely visualized. Therefore further evaluation
is advised, to begin with a dedicated renal ultrasound.
Carotid US, 02/04/2025:
IMPRESSION:
RIGHT: No significant carotid plaque identified. Carotid velocity measurements are consistent with less than 50% internal carotid artery stenosis. Vertebral artery flow is antegrade.
LEFT: Mixed plaque is identified in the carotid bulb. Carotid velocity measurements are consistent with less than 50% internal carotid artery stenosis. Vertebral artery flow is antegrade.
LLE Duplex, 02/04/2025:
IMPRESSION:
RIGHT LOWER EXTREMITY: Vein diameters are as listed above. Chronic nonocclusive wall adherent thrombus identified in the great saphenous vein from the knee to the mid thigh. Wall thickening identified in the small saphenous vein.
LEFT LOWER EXTREMITY: Vein diameters are as listed above. Chronic nonocclusive wall adherent thrombus identified in the great saphenous vein at the knee and distal thigh segments.
Cardiac Catheterization, 02/04/2025:
CONCLUSIONS
1. Right dominant circulation with an enormous RCA that serves the right coronary and circumflex territories with a culprit 90% lesion in the mid RCA and a 70% lesion in the second posterolateral branch as well as an 80% lesion in the distal left
main coronary artery leading into an 80-90% lesion in the ostium of the LAD as well as a vestigial circumflex.
2. Mildly elevated filling pressures (LVEDP = 14 mmHg at 112.5 kg).
TTE, 02/04/2025:
SUMMARY
1. Left ventricle is mildly dilated with mildly reduced systolic function. LVEF 40-45%.
2. Hypokinesis of the mid to apical anterolateral/inferolateral wall, basal to apical inferior wall, and apex.
3. No significant valvular disease.
4. Ectatic aortic root (3.9 cm).
5. No prior study available for comparison.
Physical Exam
Vital Signs/Labs
Vital Signs
Temp Pulse Resp BP Pulse Ox
36.7 C 54 18 128/75 94
02/08/25 02:50 02/08/25 02:45 02/08/25 02:50 02/08/25 02:31 02/08/25 02:50
02/06/25 02/07/25 02/08/25
11:59 11:59 11:59
Actual Weight 111.2 kg
02/08/25 02:45
02/07/25 06:21
PT 14.2 Sec (11.4-14.6) 02/04/25 04:39
PT Cancelled 02/04/25 04:39
INR 1.07 02/04/25 04:39
INR Cancelled 02/04/25 04:39
APTT 100.0 Sec (23.4-35.0) H 02/08/25 02:45
Magnesium 2.2 mg/dl (1.6-2.3) 02/07/25 06:21
Triglycerides 416 mg/dl (10-149) H 02/02/25 03:45
LDL Cholesterol, Calc mg/dl 02/02/25 03:45
VLDL Cholesterol, Calc mg/dl (0-30) 02/02/25 03:45
HDL Cholesterol 37 mg/dl 02/02/25 03:45
02/02/25
03:45
Riv-S-Hqfjxeqbfwf Pept 1290
Physical Exam
Constitutional: No acute distress and Comfortable
EENT: Anicteric and Moist mucous membranes
Cardiovascular: Rhythm & rate is regular, Pedal edema is absent, JVD pressure is normal, S1S2 is normal and Murmur/rub/gallop absent
Respiratory: Respiratory effort normal, Lungs clear to auscul., Wheeze Absent, Crackles Absent and Rhonchi Absent
GI: Soft, Distention absent, Flat, Non tender and Normal bowel sounds
Neuro/Psych: AO x 3
Data Reviewed
-
Date of Service: February 08, 2025
Medical Decision Making: Reviewed Test Results, Independent Historian Assessment and Test Interpretation
EKG: Tracing Personally Visualized and interpreted and Report Reviewed by me
Echo: Tracing Personally Visualized and interpreted and Report Reviewed by me
X-Ray/CT/US/MRI/NUC/PET: Image Personally Visualized and interpreted and Report Reviewed by me
Medical Tests (PFT, Pathology etc): Image Personally Visualized and interpreted, Report Reviewed by me and Discussed with Patient
Labs: Labs Reviewed by me
[2025-02-08] MEDS: NITRO-BID 0.5 INCH TOPICAL ×4 (08:49→23:05)
[2025-02-08] MEDS: METAMUCIL, KONSYL 1 PACKET PO (08:50)
[2025-02-08] MEDS: LOW STRENGTH ASPIRIN 81 MG PO (08:50)
--- NOTE | 2025-02-08 10:12 | W.PN.HOSP.TC ---
Today's Communication/Plan
-
Await CABG
Assessment / Plan
Assessment / Plan
IMPRESSION:
59-year-old with past medical history of hyperlipidemia, on diet control for prediabetes, prior provoked DVT status post anticoagulation presenting to the emergency department with chest pain and found to have elevated troponin and flipped T waves
on EKG. He is currently chest pain-free, hemodynamically stable and in no acute distress. Troponin was 0.48. Rest of his labs unremarkable.
PLAN:
NSTEMI
Obstructive coronary artery disease; s/p cardiac cath 02/04
Mildly elevated left ventricular end-diastolic pressure suggestive of acute CHmrEF.
- No further chest pain. Troponin peaked at 7.7 have trended down since
-Continue aspirin 81 daily
-Continue statin (rosuvastatin)
- Continue IV diuretics per cardiology. Weight improving
- Echo shows EF of 40 to 45%
- Await CABG
Elevated blood pressure-suspect essential hypertension
Initiated on lisinopril by cardiology. Blood pressure under goal.
DVT prophylaxis on heparin drip
CODE STATUS�full code
Anticipated Discharge: > 48 hours
Subjective/Interval History
-
Date of Service: February 08, 2025
Voices no specific complaints
No CP or SOB
CABG got cancelled
Objective Data
-
Labs:
Laboratory Results
02/08/25
02:45
WBC 8.4
Hgb 14.7
Hct 43.2
Plt Count 198
APTT 100.0 H
Vital Signs:
Vital Signs
Temp Pulse Resp BP Pulse Ox
97.9 F 58 14 136/84 96
02/08/25 08:04 02/08/25 08:30 02/08/25 08:04 02/08/25 08:04 02/08/25 08:46
I&O
02/07/25 02/08/25 02/09/25
06:59 06:59 06:59
Intake Total 1500 / 1500
Output Total 2800 / 2800 1000 / 1000
Balance -2800 / -2800 500 / 500
Physical Exam
-
General: Comfortable
Respiratory: Non Labored Respirations; Negative Accessory Resp Muscle Use
Cardiac: Regular Rhythm and S1/S2
Psych: Calm
Data Reviewed
-
Labs: Labs Reviewed by me
--- NOTE | 2025-02-08 15:23 | CM ---
spoke to pt in room, we discussed preop teaching including driving and sternal restrictions. he lives with is brother in a 2 story home with 2 steps to enter. he has the cardiac educ book. he lives in [place], [place], he is agreeable to a f/u
phone call from the [facility] after dc. cm to re-eval dc needs after surgery. plan is for CABG - 02/13.
[2025-02-08] MEDS: HEPARIN 25000 UNITS/250 ML IV (15:48)
--- NOTE | 2025-02-08 17:24 | PTCARENOTE ---
PT continued on heparin gtt; CT surgery rescheduled to 02/13; pt independent in room;
[2025-02-08] MEDS: CRESTOR 20 MG PO (19:03)
[2025-02-09] VITALS (11 sets, daily range): BP systolic 109–157; BP diastolic 69–86; BMI 36.3
--- NOTE | 2025-02-09 00:23 | PTCARENOTE ---
Rec'd pt at change of shift. Pt AAO*3, VSS, and SR on TELE monitor with 1st AV block. Heparin infusing as ordered. Pt denies any pain or discomfort. Updated on plan of care and now resting with call coombs in reach.
[2025-02-09] MEDS: NITRO-BID 0.5 INCH TOPICAL ×4 (05:35→23:16)
[2025-02-09 06:28] LABS: APTT 114.2 Sec (23.4-35.0)
[2025-02-09] MEDS: HEPARIN 25000 UNITS/250 ML IV ×2 (06:35→23:17)
[2025-02-09] MEDS: LOW STRENGTH ASPIRIN 81 MG PO (07:49)
[2025-02-09] MEDS: METAMUCIL, KONSYL 1 PACKET PO (07:49)
[2025-02-09] MEDS: FLUSH (NSS) 1 FLUSH IV (07:49)
--- NOTE | 2025-02-09 07:50 | PTCARENOTE ---
The patient is aaox3. His vitals signs are stable. NSR/SB has been noted on the monitor with HRs fluctuating between 50s-60s. He has no complaints of pain or discomfort. His Heparin gtt is running at 1500 units/hr. His right hand IV is red and
tender. VAT RN discontinued his right hand IV and placed a new right forearm in. I encouraged him to move around more outside of his room and walk the hallways. CHF booklet and teaching done for his new ischemic CM.
--- NOTE | 2025-02-09 09:14 | W.PN.CD ---
Today's Communication / Plan
-
Await CABG.
Impression / Plan
-
Impression/Plan: 59 y/o male with HTN, HLD, NIDDM and history of provoked DVT admitted with NSTEMI; subsequent cardiac catheterization revealed multivessel coronary artery disease.
#NSTEMI:
-Acute, threat to life.
-Peak troponin 7.
-Cardiac catheterization with multivessel coronary artery disease.
-Await CABG.
#Ischemic Cardiomyopathy
-New diagnosis.
-LVEF 40 to 45%.
-Respiratory status stable. No evidence of decompensation.
-GDMT as hemodynamics and surgical planning will permit:
-Diuretics: Discontinued.
-Beta Yovanny: None due to baseline bradycardia.
-ACEI/ARB/ARNi: Lisinopril 10 mg on hold prior to surgery.
-MRA: None.
-SGLT2i: Anticipate dapagliflozin 10 mg daily after surgery.
-ICD: Not currently indicated.
#NSVT:
-Acute, asymptomatic. Reported on admission but none over last 24 hours
-8-beats noted on 02/02/2025.
-Following clinically; no beta-yovanny secondary to baseline intrinsic bradycardia.
#DM2:
-Chronic, diet controlled.
-HgbA1C 6.3%.
-Management per primary team.
-There will be a role for GLP-1 agonists as an outpatient.
#HTN:
-Chronic, stable.
-Currently on nitro paste 0.5 inch.
#HLD:
-Chronic, uncontrolled.
-Total cholesterol = 207, LDL = 111, HDL = 37, Triglycerides = 416.
-Rosuvastatin 20 mg daily.
#hx DVT:
-Previously on apixaban x 3 months.
-Chronic, non-occlusive thrombus identified in the bilateral great saphenous veins.
-We will consider restarting therapeutic anticoagulation after surgery.
Subjective/Interval History:
No acute events.
No subjective complaints.
DATA:
Chest CT, 02/04/2025:
IMPRESSION:
Ascending aorta has top of caliber with short axis diameter 4.0 cm at the level the right main pulmonary artery. There is no significant calcification of the ascending aorta.
Moderate calcification involving the inferior aortic arch in the region of the ligamentum arteriosum.
2 focal areas of linear and groundglass opacity, one within the posterior aspect of the right lower lobe and the second within the posterior aspect of the left lower lobe. Morphologically, the appearance is highly suggestive of focal areas of
scarring. It is probably prudent to obtain a follow-up CT of the chest with suggested timeframe of 6 months initially.
Fatty infiltration of the liver.
Incompletely visualized predominantly cystic mass arising in the right kidney, which appears to have peripheral calcification. This is likely a benign peripherally calcified cystic mass, but is incompletely visualized. Therefore further evaluation
is advised, to begin with a dedicated renal ultrasound.
Carotid US, 02/04/2025:
IMPRESSION:
RIGHT: No significant carotid plaque identified. Carotid velocity measurements are consistent with less than 50% internal carotid artery stenosis. Vertebral artery flow is antegrade.
LEFT: Mixed plaque is identified in the carotid bulb. Carotid velocity measurements are consistent with less than 50% internal carotid artery stenosis. Vertebral artery flow is antegrade.
LLE Duplex, 02/04/2025:
IMPRESSION:
RIGHT LOWER EXTREMITY: Vein diameters are as listed above. Chronic nonocclusive wall adherent thrombus identified in the great saphenous vein from the knee to the mid thigh. Wall thickening identified in the small saphenous vein.
LEFT LOWER EXTREMITY: Vein diameters are as listed above. Chronic nonocclusive wall adherent thrombus identified in the great saphenous vein at the knee and distal thigh segments.
Cardiac Catheterization, 02/04/2025:
CONCLUSIONS
1. Right dominant circulation with an enormous RCA that serves the right coronary and circumflex territories with a culprit 90% lesion in the mid RCA and a 70% lesion in the second posterolateral branch as well as an 80% lesion in the distal left
main coronary artery leading into an 80-90% lesion in the ostium of the LAD as well as a vestigial circumflex.
2. Mildly elevated filling pressures (LVEDP = 14 mmHg at 112.5 kg).
TTE, 02/04/2025:
SUMMARY
1. Left ventricle is mildly dilated with mildly reduced systolic function. LVEF 40-45%.
2. Hypokinesis of the mid to apical anterolateral/inferolateral wall, basal to apical inferior wall, and apex.
3. No significant valvular disease.
4. Ectatic aortic root (3.9 cm).
5. No prior study available for comparison.
Physical Exam
Vital Signs/Labs
Vital Signs
Temp Pulse Resp BP Pulse Ox
36.8 C 55 16 125/81 94
02/09/25 07:16 02/09/25 07:17 02/09/25 07:16 02/09/25 07:17 02/09/25 07:16
02/07/25 02/08/25 02/09/25
11:59 11:59 11:59
Actual Weight 111.4 kg
02/08/25 02:45
02/07/25 06:21
PT 14.2 Sec (11.4-14.6) 02/04/25 04:39
PT Cancelled 02/04/25 04:39
INR 1.07 02/04/25 04:39
INR Cancelled 02/04/25 04:39
APTT 114.2 Sec (23.4-35.0) H 02/09/25 05:50
Magnesium 2.2 mg/dl (1.6-2.3) 02/07/25 06:21
Triglycerides 416 mg/dl (10-149) H 02/02/25 03:45
LDL Cholesterol, Calc mg/dl 02/02/25 03:45
VLDL Cholesterol, Calc mg/dl (0-30) 02/02/25 03:45
HDL Cholesterol 37 mg/dl 02/02/25 03:45
02/02/25
03:45
Zog-X-Jczsmssttwb Pept 1290
Physical Exam
Constitutional: No acute distress and Comfortable
EENT: Anicteric and Moist mucous membranes
Cardiovascular: Rhythm & rate is regular, Pedal edema is absent, JVD pressure is normal, S1S2 is normal and Murmur/rub/gallop absent
Respiratory: Respiratory effort normal, Lungs clear to auscul., Wheeze Absent, Crackles Absent and Rhonchi Absent
GI: Soft, Distention absent, Flat, Non tender and Normal bowel sounds
Neuro/Psych: AO x 3
Data Reviewed
-
Date of Service: February 09, 2025
Medical Decision Making: Reviewed Test Results, Independent Historian Assessment and Test Interpretation
EKG: Tracing Personally Visualized and interpreted and Report Reviewed by me
Echo: Report Reviewed by me
X-Ray/CT/US/MRI/NUC/PET: Image Personally Visualized and interpreted and Report Reviewed by me
Medical Tests (PFT, Pathology etc): Image Personally Visualized and interpreted and Report Reviewed by me
Labs: Labs Reviewed by me
Old Records: Reviewed
--- NOTE | 2025-02-09 11:08 | W.PN.HOSP.TC ---
Today's Communication/Plan
-
Await CABG
Assessment / Plan
Assessment / Plan
IMPRESSION:
59-year-old with past medical history of hyperlipidemia, on diet control for prediabetes, prior provoked DVT status post anticoagulation presenting to the emergency department with chest pain and found to have elevated troponin and flipped T waves
on EKG. He is currently chest pain-free, hemodynamically stable and in no acute distress. Troponin was 0.48. Rest of his labs unremarkable.
PLAN:
NSTEMI
Obstructive coronary artery disease; s/p cardiac cath 02/04
Mildly elevated left ventricular end-diastolic pressure suggestive of acute CHmrEF.
- No further chest pain. Troponin peaked at 7.7 have trended down since
-Continue aspirin 81 daily
-Continue statin (rosuvastatin)
- Weight improved. No shortness of breath. Not hypoxic. Off of Lasix now.
- Echo shows EF of 40 to 45%
- Await CABG. Continue with IV heparin
Elevated blood pressure-suspect essential hypertension
Initiated on lisinopril by cardiology which is on hold now.. Blood pressure under goal.
DVT prophylaxis on heparin drip
CODE STATUS�full code
Anticipated Discharge: > 48 hours
Subjective/Interval History
-
Date of Service: February 09, 2025
Remains asymptomatic. Denies any shortness of breath, chest pain or palpitations.
Tolerating diet. No dizziness.
Objective Data
-
Labs:
Laboratory Results
02/09/25 02/09/25
05:50 12:30
APTT 114.2 H Pending
Vital Signs:
Vital Signs
Temp Pulse Resp BP Pulse Ox
98.2 F 58 16 125/81 94
02/09/25 07:16 02/09/25 09:00 02/09/25 07:16 02/09/25 07:17 02/09/25 07:16
I&O
02/08/25 02/09/25 02/10/25
06:59 06:59 06:59
Intake Total 1500 / 1500 2 / 672
Output Total 1000 / 1000
Balance 500 / 500 2 /
Physical Exam
-
General: Comfortable
Respiratory: Non Labored Respirations; Negative Accessory Resp Muscle Use
Cardiac: Regular Rhythm and S1/S2; Negative Tachycardic
GI: Soft
Neuro: AO x 3
Data Reviewed
-
Labs: Labs Reviewed by me
[2025-02-09 12:39] LABS: APTT 91.8 Sec (23.4-35.0)
[2025-02-09] MEDS: CRESTOR 20 MG PO (18:06)
[2025-02-09 18:57] LABS: APTT 80.1 Sec (23.4-35.0)
--- NOTE | 2025-02-09 22:29 | PTCARENOTE ---
Rec'd [t at change of shift. Pt AAO*3, VSS, and SR with first degree AV block on TELE monitor. Pt denies any pain or discomfort. Heparin infusing as ordered. Pt denies any questions or concerns, see MAR and flowchart for full pt care and
assessment.
[2025-02-10] VITALS (19 sets, daily range): BP systolic 114–175; BP diastolic 71–141; BMI 36.1
[2025-02-10] MEDS: NITROSTAT (SUBLINGUAL) 0.4 MG SL ×5 (04:10→23:44)
[2025-02-10 04:32] LABS: Hematocrit 44.7 % (39.0-52.0); Hemoglobin 15.4 g/dL (13.0-18.0); Mean Corp Hgb Conc. 34.5 g/dL (33.0-37.0); Mean Corpuscular Volume 86.1 fL (80.0-94.0); Platelet Count 220 10^3/uL (130-400); Red Cell Dist. Width 13.8 % (11.5-14.5)
[2025-02-10 04:46] LABS: APTT 134.9 Sec (23.4-35.0)
--- NOTE | 2025-02-10 05:04 | PTCARENOTE ---
At 4:10 AM pt used call coombs to report 6/10 mid sternal chest pain that radiated to the right jaw. BP taken and ekg obtained. SR with first degree AV block (no change from baseline). PT given 1 sublingual nitro that relieved pain after five
minutes. CT EMI Gomez made aware and no new orders currently. Pt agree to call staff within any chest pain immediately and updated on communication with provider. Pt resting chest pain free with call coombs in reach. See MAR and flowchart for full
pt care and assessment.
[2025-02-10] MEDS: NITRO-BID 0.5 INCH TOPICAL (06:39)
[2025-02-10] MEDS: LOW STRENGTH ASPIRIN 81 MG PO (07:31)
[2025-02-10] MEDS: FLUSH (NSS) 1 FLUSH IV (07:31)
[2025-02-10] MEDS: METAMUCIL, KONSYL 1 PACKET PO (07:31)
--- NOTE | 2025-02-10 10:03 | W.PN.HOSP.TC ---
Today's Communication/Plan
-
Await CABG
Assessment / Plan
Assessment / Plan
IMPRESSION:
59-year-old with past medical history of hyperlipidemia, on diet control for prediabetes, prior provoked DVT status post anticoagulation presenting to the emergency department with chest pain and found to have elevated troponin and flipped T waves
on EKG. He is currently chest pain-free, hemodynamically stable and in no acute distress. Troponin was 0.48. Rest of his labs unremarkable.
PLAN:
NSTEMI
Obstructive coronary artery disease; s/p cardiac cath 02/04
Mildly elevated left ventricular end-diastolic pressure suggestive of acute CHmrEF.
- No further chest pain. Troponin peaked at 7.7 have trended down since
-Continue aspirin 81 daily
-Continue statin (rosuvastatin)
- Weight improved. No shortness of breath. Not hypoxic. Off of Lasix now.
- Echo shows EF of 40 to 45%
- Await CABG. Continue with IV heparin per cardiology
Elevated blood pressure-suspect essential hypertension
Initiated on lisinopril by cardiology which is on hold now.. Blood pressure under goal.
DVT prophylaxis on heparin drip
CODE STATUS�full code
Anticipated Discharge: > 48 hours
Subjective/Interval History
-
Date of Service: February 10, 2025
No events. Patient remains asymptomatic.
Objective Data
-
Labs:
Laboratory Results
02/10/25 02/10/25
04:19 12:10
WBC 10.4
Hgb 15.4
Hct 44.7
Plt Count 220
APTT 134.9 H Pending
Vital Signs:
Vital Signs
Temp Pulse Resp BP Pulse Ox
98.0 F 62 16 134/94 95
02/10/25 07:29 02/10/25 07:00 02/10/25 07:29 02/10/25 06:39 02/10/25 07:35
I&O
02/09/25 02/10/25 02/11/25
06:59 06:59 06:59
Intake Total 672 / 672 1440 / 1440
Balance 672 / 672 1440 / 1440
Physical Exam
-
General: No Apparent Distress
Respiratory: Clear to Auscultation and Non Labored Respirations; Negative Accessory Resp Muscle Use
Cardiac: Regular Rhythm and S1/S2
Neuro: AO x 3
Data Reviewed
-
Labs: Labs Reviewed by me
--- NOTE | 2025-02-10 11:31 | PTCARENOTE ---
The patient complained of chest and left jaw pressure. He rated it a 3/10 on scale. BP at that time was 168/93. I gave him a SL nitro. Nitro paste 1/2 inch still on the patient. ECG showing SR with a 1st degree AVB and a nonspecific T wave
abnormality. BP post nitro was 136/82. Post nitro chest and left jaw pressure was '<1' per the patient. I notified Dr. Welch.
--- NOTE | 2025-02-10 12:07 | W.PN.CD ---
Today's Communication / Plan
-
On/off chest pain requiring SL nitro and Nitropaste + suboptimal BPs --> start low dose Isordil and titrate
Continue heparin/ASA/statin while waiting for CABG
Impression / Plan
-
Impression/Plan: 59 y/o male with HTN, HLD, NIDDM and history of provoked DVT admitted with NSTEMI; subsequent cardiac catheterization revealed multivessel coronary artery disease.
#NSTEMI:
-Acute, threat to life.
-Peak troponin 7.
-Cardiac catheterization with multivessel coronary artery disease.
-Await CABG.
-Continue ASA and heparin until CABG
-Start low dose nitrate. Still having on/off chest pain requiring SL nitro and Nitropaste
#Ischemic Cardiomyopathy
-New diagnosis.
-LVEF 40 to 45%.
-Respiratory status stable. No evidence of decompensation.
-GDMT as hemodynamics and surgical planning will permit:
-Diuretics: Discontinued.
-Beta Yovanny: None due to baseline bradycardia.
-ACEI/ARB/ARNi: Lisinopril 10 mg on hold prior to surgery.
-MRA: None.
-SGLT2i: Anticipate dapagliflozin 10 mg daily after surgery.
-ICD: Not currently indicated.
#NSVT:
-Acute, asymptomatic. Reported on admission but none over last 24 hours
-8-beats noted on 02/02/2025.
-Following clinically; no beta-yovanny secondary to baseline intrinsic bradycardia.
#DM2:
-Chronic, diet controlled.
-HgbA1C 6.3%.
-Management per primary team.
-There will be a role for GLP-1 agonists as an outpatient.
#HTN:
-Chronic, stable.
-Start nitrate as above
#HLD:
-Chronic, uncontrolled.
-Total cholesterol = 207, LDL = 111, HDL = 37, Triglycerides = 416.
-Rosuvastatin 20 mg daily.
#hx DVT:
-Previously on apixaban x 3 months.
-Chronic, non-occlusive thrombus identified in the bilateral great saphenous veins.
-We will consider restarting therapeutic anticoagulation after surgery.
Subjective/Interval History:
Still having intermittent chest pain. Once when he got up to go to the bathroom last night and once again today while laying in bed. Got SL nitro and nitro-paste. Now chest pain-free.
DATA:
Chest CT, 02/04/2025:
IMPRESSION:
Ascending aorta has top of caliber with short axis diameter 4.0 cm at the level the right main pulmonary artery. There is no significant calcification of the ascending aorta.
Moderate calcification involving the inferior aortic arch in the region of the ligamentum arteriosum.
2 focal areas of linear and groundglass opacity, one within the posterior aspect of the right lower lobe and the second within the posterior aspect of the left lower lobe. Morphologically, the appearance is highly suggestive of focal areas of
scarring. It is probably prudent to obtain a follow-up CT of the chest with suggested timeframe of 6 months initially.
Fatty infiltration of the liver.
Incompletely visualized predominantly cystic mass arising in the right kidney, which appears to have peripheral calcification. This is likely a benign peripherally calcified cystic mass, but is incompletely visualized. Therefore further evaluation
is advised, to begin with a dedicated renal ultrasound.
Carotid US, 02/04/2025:
IMPRESSION:
RIGHT: No significant carotid plaque identified. Carotid velocity measurements are consistent with less than 50% internal carotid artery stenosis. Vertebral artery flow is antegrade.
LEFT: Mixed plaque is identified in the carotid bulb. Carotid velocity measurements are consistent with less than 50% internal carotid artery stenosis. Vertebral artery flow is antegrade.
LLE Duplex, 02/04/2025:
IMPRESSION:
RIGHT LOWER EXTREMITY: Vein diameters are as listed above. Chronic nonocclusive wall adherent thrombus identified in the great saphenous vein from the knee to the mid thigh. Wall thickening identified in the small saphenous vein.
LEFT LOWER EXTREMITY: Vein diameters are as listed above. Chronic nonocclusive wall adherent thrombus identified in the great saphenous vein at the knee and distal thigh segments.
Cardiac Catheterization, 02/04/2025:
CONCLUSIONS
1. Right dominant circulation with an enormous RCA that serves the right coronary and circumflex territories with a culprit 90% lesion in the mid RCA and a 70% lesion in the second posterolateral branch as well as an 80% lesion in the distal left
main coronary artery leading into an 80-90% lesion in the ostium of the LAD as well as a vestigial circumflex.
2. Mildly elevated filling pressures (LVEDP = 14 mmHg at 112.5 kg).
TTE, 02/04/2025:
SUMMARY
1. Left ventricle is mildly dilated with mildly reduced systolic function. LVEF 40-45%.
2. Hypokinesis of the mid to apical anterolateral/inferolateral wall, basal to apical inferior wall, and apex.
3. No significant valvular disease.
4. Ectatic aortic root (3.9 cm).
5. No prior study available for comparison.
Physical Exam
Vital Signs/Labs
Vital Signs
Temp Pulse Resp BP Pulse Ox
98.3 F 63 20 153/81 97
02/10/25 11:44 02/10/25 11:44 02/10/25 11:44 02/10/25 11:44 02/10/25 11:44
02/09/25 02/10/25 02/11/25
06:59 06:59 06:59
Actual Weight 245 lb 9.519 oz 244 lb 4.355 oz
02/10/25 04:19
02/07/25 06:21
PT 14.2 Sec (11.4-14.6) 02/04/25 04:39
PT Cancelled 02/04/25 04:39
INR 1.07 02/04/25 04:39
INR Cancelled 02/04/25 04:39
APTT 134.9 Sec (23.4-35.0) H 02/10/25 04:19
Magnesium 2.2 mg/dl (1.6-2.3) 02/07/25 06:21
Triglycerides 416 mg/dl (10-149) H 02/02/25 03:45
LDL Cholesterol, Calc mg/dl 02/02/25 03:45
VLDL Cholesterol, Calc mg/dl (0-30) 02/02/25 03:45
HDL Cholesterol 37 mg/dl 02/02/25 03:45
02/02/25
03:45
[id number]-J-Pglirccrljm Pept 1290
Physical Exam
Constitutional: No acute distress and Comfortable
Cardiovascular: Rhythm & rate is regular, Pedal edema is absent, S1S2 is normal and Murmur/rub/gallop absent
Respiratory: Respiratory effort normal and Lungs clear to auscul.
Neuro/Psych: AO x 3
Data Reviewed
-
Date of Service: February 10, 2025
Medical Decision Making: Reviewed Test Results, Independent Historian Assessment, Test Interpretation and Review of Case with other Provider
EKG: Tracing Personally Visualized and interpreted
Echo: Report Reviewed by me
Labs: Labs Reviewed by me
[2025-02-10] MEDS: NITRO-BID TOPICAL (12:43)
[2025-02-10] MEDS: ISORDIL 5 MG PO ×3 (12:49→20:17)
[2025-02-10 12:55] LABS: APTT 67.8 Sec (23.4-35.0)
[2025-02-10] MEDS: CRESTOR 20 MG PO (17:25)
[2025-02-10] MEDS: HEPARIN 25000 UNITS/250 ML IV (18:36)
[2025-02-10 20:28] LABS: APTT 70.5 Sec (23.4-35.0)
[2025-02-11] VITALS (11 sets, daily range): BP systolic 74–176; BP diastolic 62–100
--- NOTE | 2025-02-11 00:24 | PTCARENOTE ---
Addendum entered by Monae Gallegos RN 02/11/25 00:28:
2344 Pt c/o chest pain 3/10. BP 160s/80s. SL nitro x 1 given with positive result. Pain 0/10
Original Note:
19:30 Pt c/o mid chest and mid back pain 6/10. BP 170s/80s. SL nitro x 2 given and O2 2 L applied with pain relief down to 0/10. Dr. Welch made aware. New order for Imdur 5 mg x 1 dose given.
[2025-02-11 03:46] LABS: APTT 126.1 Sec (23.4-35.0)
[2025-02-11] MEDS: NITROSTAT (SUBLINGUAL) 0.4 MG SL (06:32)
--- NOTE | 2025-02-11 06:37 | W.PN.UPDATE ---
Update Note
Progress Note Update
CARDIAC SURGERY ATTENDING:
Patient with recurrent episodes of chest pain. I have adjusted the OR schedule to accommodate urgent operation this a.m. Operative plan as outlined previously with JEFFREY (ELISE to distal RCA, ERIN to LAD, and L RA to RPLB2) and exclusion of the left
atrial appendage. Patient agreeable with change of plans.
Thank you.
Warren Bernal MD
[phone]
[2025-02-11] MEDS: MAGNESIUM OXIDE 400 MG PO (06:48)
[2025-02-11] MEDS: PROTONIX 40 MG PO (06:48)
[2025-02-11] MEDS: LOPRESSOR 25 MG PO (06:49)
[2025-02-11] MEDS: BACTROBAN 2% OINTMENT 1 APPLIC NASAL ×2 (06:49→22:02)
[2025-02-11 07:44] LABS: Urine Character Clear (Clear)
[2025-02-11 07:48] LABS: ACT+ - POC 123 Seconds (82-134)
[2025-02-11 08:09] LABS: Urine Red Blood Cell 0-2 /HPF (0-2); Urine White Cell 0-2 /HPF (0-5)
--- NOTE | 2025-02-11 08:44 | CON.INTV ---
Consultation
Consultation Request
Date/Time Consultation Requested: 02/11/2025
Date/Time Consultation Performed: 02/11/2025
Medical History
-
Chief Complaint: Chest pain
History of Present Illness:
Patient is a 59-year-old gentleman with history of hypertension, hyperlipidemia, diabetes and prior DVT who presented to the hospitalist service on 02/02 with upper back pain with radiation to her chest. Patient subsequently noted to have elevated
troponin and diagnosed with non-ST elevation myocardial infarction. He was evaluated by cardiology service and a left heart catheterization done which was suggestive of multivessel coronary artery disease. Patient was subsequently evaluated by CT
surgery service and coronary artery bypass graft surgery was recommended. On 02/11, patient was taken to the OR for the above procedure. 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
Past Medical History: Reports HTN, Hypercholesterolemia and Other (DVT)
Past Surgical History: Reports None
Social History
Tobacco: Non-smoker
Alcohol: None
Drug: None
Personal: Single
Living: With Family
Employment: Employed
Family History
Family History: Not pertinent
Allergies / Home Medications
Allergies
Allergy/AdvReac Type Severity Reaction Status Date / Time
No Known Allergies Allergy Verified 02/02/25 02:43
Home Medications
�Medication �Instructions �Recorded �Confirmed �Last Taken �Type
methocarbamol 500 mg tablet 500 mg PO HS 02/02/25 02/02/25 Unknown History
rosuvastatin 10 mg tablet 10 mg PO DAILY 02/02/25 02/02/25 Unknown History
Review of Systems
-
Unable to Obtain full review of systems at this time due to: Patient Intubation
Vitals / Labs / Diagnostic Testing
Vital Signs
Temp Pulse Resp BP Pulse Ox
97.8 F 70 16 162/96 98
02/11/25 03:22 02/11/25 06:51 02/11/25 03:22 02/11/25 06:51 02/11/25 03:22
Lab Data
02/10/25 04:19
02/07/25 06:21
Laboratory Results
02/10/25 02/10/25 02/11/25
12:27 20:08 03:17
APTT 67.8 H 70.5 H 126.1 H
Diagnostic Testing:
Physical Exam
-
HEENT: Normocephalic
Cardiovascular: S1/S2 and Peripheral Edema (Trace edema)
Respiratory: Clear
GI: Soft and Non Distended
Neurology: Other (Drowsy but wakes up with little stimulation)
Skin: Warm
General: Comfortable
Assessment
-
59-year-old gentleman with NSTEMI, multivessel disease on coronary angiogram, s/p coronary artery bypass graft x3 and left atrial appendage exclusion POD # 0
Titrate off pressors per protocol, currently on Levophed infusing at 1, milrinone at 0.125
ECHO reviewed with slightly reduced EF, 40-45%
PA catheter readings reviewed, 44/, mean 35
Management of chest tubes per primary service
Intubated/currently tolerating SBT well
Pain control
RASS goal of 0 to -1
Intubated for procedure,
Current vent settings: CPAP with a pressure support, 5/5, 40% FiO2. Saturating 96%. Respiratory rate around 18-21.
AB.30 .
CXR suggestive of left lower lobe atelectasis, ETT in good position, lines/tubes in place
Extubate per protocol
Maintain supplement oxygen as needed
No prior history of pulmonary disease, no history of smoking per patient
Can add nebulizers if needed
Aspiration precautions
Encouraged incentive spirometry, OOB/ambulation/early mobility
Advance diet as tolerated following extubation
GI prophylaxis: Protonix
Monitor critical I/O's
Hong/chest tube output
Hb/platelets postoperatively, mild drift
Trend CBC for now
Can transfuse if indicated for Hb <7, plt <50 in surgical patients
DVT prophylaxis including SCDs
Insulin protocol initiated and ongoing
Transition to SQ/off as indicated per team
Other medical diagnoses:
- Pulmonary nodules. RLL (3x2.3x1.8 cm) and LLL. Appear to be scarring with Bronchiectasis. Will need CT surveillance as out patient and possibly tissue diagnosis and BAL. Outpatient follow-up with pulmonary clinic. Information left in the
discharge section.
Critical Care time 65 mins -- The patient is admitted for acute critical illness for the treatment of vital organ failure and/or prevention of further life-threatening conditions. Total care includes time spent in review of history, physical exam,
medications, hemodynamic/ventilator parameters, laboratory data, imaging and discussion with house staff, pharmacy, respiratory therapy, pipe finishing supervisor, and nursing
Data:
[facility] 01/2025: 1. Right dominant circulation with an enormous RCA that serves the right coronary and circumflex territories with a culprit 90% lesion in the mid RCA and a 70% lesion in the second posterolateral branch as well as an 80% lesion in the
distal left main coronary artery leading into an 80-90% lesion in the ostium of the LAD as well as a vestigial circumflex.
2. Mildly elevated filling pressures (LVEDP = 14 mmHg at 112.5 kg).
ECHO 01/2025: 1. Left ventricle is mildly dilated with mildly reduced systolic function. LVEF 40-45%.
2. Hypokinesis of the mid to apical anterolateral/inferolateral wall, basal to apical inferior wall, and apex.
3. No significant valvular disease.
4. Ectatic aortic root (3.9 cm).
5. No prior study available for comparison
CT Chest 01/2025: Ascending aorta has top of caliber with short axis diameter 4.0 cm at the level the right main pulmonary artery. There is no significant calcification of the ascending aorta.
Moderate calcification involving the inferior aortic arch in the region of the ligamentum arteriosum.
2 focal areas of linear and ground-glass opacity, one within the posterior aspect of the right lower lobe and the second within the posterior aspect of the left lower lobe. Morphologically, the appearance is highly suggestive of focal areas of
scarring. It is probably prudent to obtain a follow-up CT of the chest with suggested timeframe of 6 months initially.
Fatty infiltration of the liver.
Incompletely visualized predominantly cystic mass arising in the right kidney, which appears to have peripheral calcification. This is likely a benign peripherally calcified cystic mass, but is incompletely visualized. Therefore further evaluation
is advised, to begin with a dedicated renal ultrasound.
--- NOTE | 2025-02-11 09:10 | W.PN.CD ---
Today's Communication / Plan
-
CABG today.
Routine post operative management.
Titrate pressors/inotropes for MAP > 65, CI > 1.8 L/min/m2.
Pain/chest tube management per CTS.
Wean vent to extubate.
Impression / Plan
-
Impression/Plan: 59 y/o male with HTN, HLD, NIDDM and history of provoked DVT admitted with NSTEMI; subsequent cardiac catheterization revealed multivessel coronary artery disease.
#NSTEMI:
-Acute, threat to life.
-Peak troponin 7.
-Cardiac catheterization with multivessel coronary artery disease.
-CABG today.
-Anticipate routine post operative care.
-Wean vent to extubate.
-Titrate pressors/inotropes to MAP > 65 mmHg, CI > 1.8 L/min/m2.
-Pain/chest tube management per CT surgery.
#Ischemic Cardiomyopathy
-New diagnosis.
-LVEF 40 to 45%.
-Respiratory status stable. No evidence of decompensation.
-GDMT on hold for surgery:
-Diuretics: Discontinued.
-Beta Yovanny: None due to baseline bradycardia.
-ACEI/ARB/ARNi: Lisinopril 10 mg for surgery.
-MRA: None.
-SGLT2i: Anticipate dapagliflozin 10 mg daily after surgery.
-ICD: Not currently indicated.
#NSVT:
-Acute, asymptomatic. Reported on admission but none over last 24 hours
-8-beats noted on 02/02/2025.
-Following clinically; no beta-yovanny secondary to baseline intrinsic bradycardia.
#DM2:
-Chronic, diet controlled.
-HgbA1C 6.3%.
-Management per primary team.
-There will be a role for GLP-1 agonists as an outpatient.
#HTN:
-Chronic, stable.
-Titrate anti-hypertensives in the post operative setting.
#HLD:
-Chronic, uncontrolled.
-Total cholesterol = 207, LDL = 111, HDL = 37, Triglycerides = 416.
-Rosuvastatin 20 mg daily.
#hx DVT:
-Previously on apixaban x 3 months.
-Chronic, non-occlusive thrombus identified in the bilateral great saphenous veins.
-We will consider restarting therapeutic anticoagulation after surgery.
Subjective/Interval History:
Chest pain over the weeked.
Patient to OR today.
DATA:
Chest CT, 02/04/2025:
IMPRESSION:
Ascending aorta has top of caliber with short axis diameter 4.0 cm at the level the right main pulmonary artery. There is no significant calcification of the ascending aorta.
Moderate calcification involving the inferior aortic arch in the region of the ligamentum arteriosum.
2 focal areas of linear and groundglass opacity, one within the posterior aspect of the right lower lobe and the second within the posterior aspect of the left lower lobe. Morphologically, the appearance is highly suggestive of focal areas of
scarring. It is probably prudent to obtain a follow-up CT of the chest with suggested timeframe of 6 months initially.
Fatty infiltration of the liver.
Incompletely visualized predominantly cystic mass arising in the right kidney, which appears to have peripheral calcification. This is likely a benign peripherally calcified cystic mass, but is incompletely visualized. Therefore further evaluation
is advised, to begin with a dedicated renal ultrasound.
Carotid US, 02/04/2025:
IMPRESSION:
RIGHT: No significant carotid plaque identified. Carotid velocity measurements are consistent with less than 50% internal carotid artery stenosis. Vertebral artery flow is antegrade.
LEFT: Mixed plaque is identified in the carotid bulb. Carotid velocity measurements are consistent with less than 50% internal carotid artery stenosis. Vertebral artery flow is antegrade.
LLE Duplex, 02/04/2025:
IMPRESSION:
RIGHT LOWER EXTREMITY: Vein diameters are as listed above. Chronic nonocclusive wall adherent thrombus identified in the great saphenous vein from the knee to the mid thigh. Wall thickening identified in the small saphenous vein.
LEFT LOWER EXTREMITY: Vein diameters are as listed above. Chronic nonocclusive wall adherent thrombus identified in the great saphenous vein at the knee and distal thigh segments.
Cardiac Catheterization, 02/04/2025:
CONCLUSIONS
1. Right dominant circulation with an enormous RCA that serves the right coronary and circumflex territories with a culprit 90% lesion in the mid RCA and a 70% lesion in the second posterolateral branch as well as an 80% lesion in the distal left
main coronary artery leading into an 80-90% lesion in the ostium of the LAD as well as a vestigial circumflex.
2. Mildly elevated filling pressures (LVEDP = 14 mmHg at 112.5 kg).
TTE, 02/04/2025:
SUMMARY
1. Left ventricle is mildly dilated with mildly reduced systolic function. LVEF 40-45%.
2. Hypokinesis of the mid to apical anterolateral/inferolateral wall, basal to apical inferior wall, and apex.
3. No significant valvular disease.
4. Ectatic aortic root (3.9 cm).
5. No prior study available for comparison.
Physical Exam
Vital Signs/Labs
Vital Signs
Temp Pulse Resp BP Pulse Ox
36.6 C 70 16 162/96 98
02/11/25 03:22 02/11/25 06:51 02/11/25 03:22 02/11/25 06:51 02/11/25 03:22
02/09/25 02/10/25 02/11/25
11:59 11:59 11:59
Actual Weight 111.4 kg 110.8 kg
02/10/25 04:19
02/07/25 06:21
PT 14.2 Sec (11.4-14.6) 02/04/25 04:39
PT Cancelled 02/04/25 04:39
INR 1.07 02/04/25 04:39
INR Cancelled 02/04/25 04:39
APTT 126.1 Sec (23.4-35.0) H 02/11/25 03:17
Magnesium 2.2 mg/dl (1.6-2.3) 02/07/25 06:21
Triglycerides 416 mg/dl (10-149) H 02/02/25 03:45
LDL Cholesterol, Calc mg/dl 02/02/25 03:45
VLDL Cholesterol, Calc mg/dl (0-30) 02/02/25 03:45
HDL Cholesterol 37 mg/dl 02/02/25 03:45
02/02/25
03:45
Ezd-J-Qfoywjrraep Pept 1290
Physical Exam
Constitutional: No acute distress and Comfortable
Neuro/Psych: Other (Intubated/sedated.)
Patient seen in OR. Limited exam.
Data Reviewed
-
Date of Service: February 11, 2025
Medical Decision Making: Reviewed Test Results, Test Interpretation and Review of Case with other Provider
EKG: Tracing Personally Visualized and interpreted and Report Reviewed by me
Echo: Report Reviewed by me
X-Ray/CT/US/MRI/NUC/PET: Image Personally Visualized and interpreted and Report Reviewed by me
Medical Tests (PFT, Pathology etc): Image Personally Visualized and interpreted and Report Reviewed by me
Labs: Labs Reviewed by me
[2025-02-11 10:14] LABS: ACT+ - POC 460 Seconds (82-134)
[2025-02-11 10:25] LABS: B.E. - POC 0.6 mmol/L; Glucose - POC 114 mg/dl (70-99); HCO3 - POC 26 mmol/L (21-28); Hematocrit - POC 41 % PCV (42-52); Hemodilution- POC No; Hemoglobin Calculated - POC 13.8; Ionized Calcium - POC 1.20 mmol/L (1.15-1.33); Lactate - POC 0.51 mmol/L (0.36-0.75); O2 Saturation %Calculated-POC 99.9 % (94-98); PCO2 - POC 45 mmHg (35-48); PO2 - POC 328 mmHg (83-108); POC Comment PRE; Potassium - POC 4.0 mmol/L (3.5-5.1); Sodium - POC 140 mmol/L (136-145); Specimen Type - POC Arterial; pH - POC 7.38 (7.35-7.45)
[2025-02-11 10:27] LABS: ACT+ - POC 467 Seconds (82-134)
[2025-02-11 10:37] LABS: ACT+ - POC 483 Seconds (82-134)
[2025-02-11 10:49] LABS: ACT+ - POC 511 Seconds (82-134)
[2025-02-11 10:57] LABS: B.E. - POC 3.2 mmol/L; Glucose - POC 141 mg/dl (70-99); HCO3 - POC 28 mmol/L (21-28); Hematocrit - POC 36 % PCV (42-52); Hemodilution- POC Yes; Hemoglobin Calculated - POC 12.2; Ionized Calcium - POC 1.08 mmol/L (1.15-1.33); Lactate - POC 1.26 mmol/L (0.36-0.75); O2 Saturation %Calculated-POC 100.0 % (94-98); PCO2 - POC 43 mmHg (35-48); PO2 - POC 432 mmHg (83-108); POC Comment CPB; Potassium - POC 5.6 mmol/L (3.5-5.1); Sodium - POC 137 mmol/L (136-145); Specimen Type - POC Arterial; pH - POC 7.42 (7.35-7.45)
[2025-02-11 11:07] LABS: ACT+ - POC 559 Seconds (82-134)
[2025-02-11 11:25] LABS: B.E. - POC 3.1 mmol/L; Glucose - POC 165 mg/dl (70-99); HCO3 - POC 28 mmol/L (21-28); Hematocrit - POC 35 % PCV (42-52); Hemodilution- POC Yes; Hemoglobin Calculated - POC 11.7; Ionized Calcium - POC 1.10 mmol/L (1.15-1.33); Lactate - POC 1.65 mmol/L (0.36-0.75); O2 Saturation %Calculated-POC 99.9 % (94-98); PCO2 - POC 41 mmHg (35-48); PO2 - POC 327 mmHg (83-108); POC Comment CPB; Potassium - POC 5.8 mmol/L (3.5-5.1); Sodium - POC 137 mmol/L (136-145); Specimen Type - POC Arterial; pH - POC 7.44 (7.35-7.45)
[2025-02-11 11:33] LABS: ACT+ - POC 518 Seconds (82-134)
[2025-02-11 11:45] LABS: ACT+ - POC 560 Seconds (82-134)
[2025-02-11 11:52] LABS: B.E. - POC 0.6 mmol/L; Glucose - POC 166 mg/dl (70-99); HCO3 - POC 25 mmol/L (21-28); Hematocrit - POC 36 % PCV (42-52); Hemodilution- POC Yes; Hemoglobin Calculated - POC 12.2; Ionized Calcium - POC 1.10 mmol/L (1.15-1.33); Lactate - POC 1.73 mmol/L (0.36-0.75); O2 Saturation %Calculated-POC 99.9 % (94-98); PCO2 - POC 39 mmHg (35-48); PO2 - POC 292 mmHg (83-108); POC Comment CPB; Potassium - POC 4.8 mmol/L (3.5-5.1); Sodium - POC 139 mmol/L (136-145); Specimen Type - POC Arterial; pH - POC 7.42 (7.35-7.45)
[2025-02-11 12:04] LABS: ACT+ - POC 706 Seconds (82-134)
[2025-02-11 12:21] LABS: ACT+ - POC 510 Seconds (82-134)
[2025-02-11 12:32] LABS: B.E. - POC 0.4 mmol/L; Glucose - POC 160 mg/dl (70-99); HCO3 - POC 26 mmol/L (21-28); Hematocrit - POC 36 % PCV (42-52); Hemodilution- POC Yes; Hemoglobin Calculated - POC 12.1; Ionized Calcium - POC 1.13 mmol/L (1.15-1.33); Lactate - POC 2.76 mmol/L (0.36-0.75); O2 Saturation %Calculated-POC 99.9 % (94-98); PCO2 - POC 42 mmHg (35-48); PO2 - POC 305 mmHg (83-108); POC Comment WARM; Potassium - POC 4.5 mmol/L (3.5-5.1); Sodium - POC 140 mmol/L (136-145); Specimen Type - POC Arterial; pH - POC 7.39 (7.35-7.45)
[2025-02-11 12:39] LABS: ACT+ - POC 148 Seconds (82-134)
[2025-02-11 13:05] LABS: B.E. - POC -1.7 mmol/L; Glucose - POC 132 mg/dl (70-99); HCO3 - POC 24 mmol/L (21-28); Hematocrit - POC 34 % PCV (42-52); Hemodilution- POC Yes; Hemoglobin Calculated - POC 11.7; Ionized Calcium - POC 1.26 mmol/L (1.15-1.33); Lactate - POC 2.56 mmol/L (0.36-0.75); O2 Saturation %Calculated-POC 99.3 % (94-98); PCO2 - POC 45 mmHg (35-48); PO2 - POC 157 mmHg (83-108); POC Comment POST; Potassium - POC 3.6 mmol/L (3.5-5.1); Sodium - POC 142 mmol/L (136-145); Specimen Type - POC Arterial; pH - POC 7.34 (7.35-7.45)
--- NOTE | 2025-02-11 13:10 | W.CVOR.SURPR ---
CVOR Surgeon Immed Pre Op
-
I have examined this patient prior to performance of the scheduled procedure.
The patient's condition is unchanged from the time of the dictated/written History and
Physical and the patient is able to undergo the scheduled procedure.
--- NOTE | 2025-02-11 13:10 | W.IMMPOSTOP ---
Addendum entered and electronically signed by Warren Bernal MD 02/11/25 18:55:
[id number]
Original Note:
Surgical Immed Post Op Note
-
CARDIAC SURGERY OPERATIVE NOTE:
Preoperative Dx:
MVCAD
Acute NSTEMI
Newly diagnosed ischemic CM (LVEF 40%)
NSVT
Hx of DVT - w/ B/L GSV unsuitable for conduit
DM II
HTN/HLD
Postoperative Dx:
Same
Procedures:
1) Median sternotomy
2) Takedown of ERIN (narrow pedicle/partial skeletonization)
3) Takedown of ELISE (skeletonized)
4) Endoscopic harvest/prep of L RA
5) CABG x 3 (in-situ ERIN to LAD, in-situ ELISE to distal RCA past crux, RA to RPLB2)
6) ELAA (35mm AtriClip)
Surgeon:
Warren Bernal M.D.
Assistants:
Valeri Chen, R.N.F.A.; first assistant manager throughout
Maria Luisa Montoya P.A.-C.; endoscopic harvest/prep of L RA
Anesthesia:
Kiran Agudelo M.D. and Amy Mcmahan, C.R.N.A.
Perfusion:
Silvia Pan, C.C.P.; CPB: 113min, XC: 86min
Findings:
ERIN was healthy conduit w/ very brisk blood flow; ELD 3.5mm
ELISE was healthy conduit w/ very brisk blood flow; ELD 3.0mm
L RA was healthy conduit w/ normal damian; ELD 3.5-4.0mm
LAD was visible on the epicardial surface, moderate scattered calcifications. No sig calcifications at distal midpoint anastomosis, normal damian; ELD 2.75mm
RPLB2 was visible on the epicardial surface, scant scattered calcifications. No sig calcifications at anastomosis; ELD 2.25mm
Distal RCA (past crux) was visible on the epicardial surface, scant scattered calcifications. No sig calcifications at anastomosis; ELD 2.75mm
SIRIA was small w/ 'windsock' morphology - successfully excluded at base w/ 35mm AtriClip - confirmed w/ LACIE post-op
Excellent flow in all grafts on intraoperative transit-time U/S flow probe assessment both pre- and post-protamine
Healthy sternum secured w/ sternal wires/plates as noted below
Complications:
None
Transfusions:
None
Implants:
AtriClip 35mm; LOT [id number]
CT x 4 (B/L pleural, inferior mediastinal, superior mediastinal)
Epicardial V-wire x 1
Sternal wires x 7
Sternal 'X' plate at manubrium w/ 4 - 14mm and 4 - 16mm screws
Sternal 'X' plate at sternal body w/ 4 - 12mm screws
Condition:
58 sinus (0.0/0.0); 102/63; 47/26; CVP 19; 100%; CO/CI: 4.6/2.0
GTTS: levophed 6, milrinone 0.125, precedex 0.5, insulin 1
Stable/guarded to CVICU
[2025-02-11] MEDS: NOVOLOG FLEXPEN SC ×2 (13:18→16:23)
[2025-02-11] MEDS: TYLENOL PO ×2 (13:18→22:03)
[2025-02-11] MEDS: ANCEF IV (13:19)
[2025-02-11] MEDS: METAMUCIL, KONSYL PO (13:19)
[2025-02-11] MEDS: LOW STRENGTH ASPIRIN PO (13:19)
--- NOTE | 2025-02-11 14:00 | PTCARENOTE ---
assumed care of patient @ 1400. recieved pt from OR intubated, sedated with 8.0 ET tube 24 @ lip SIMV 14,500,5/5, 40%. lungss clear throughout. 4 chest tubes to wall suction no air leak, tidaling or crepitus. Pt initiating breaths on ventilator, no
response to verbal commands yet. pupils 3, equal round and reactive. NSR with 1st degree block on tele HR 70s, however occasionally junctional in the 40s, CTPA aware. Does not want pacing d/t stable BP and V wire only. +L ulnar pulse with doppler.
PAs 50s/30s, CVP ~15, index >2. Rub heard on auscultation. BS hypoactive. Hong present draining clear yellow urine. MSI with aquacel, L radial site CDI closed with glue, wrapped with dong wrap. R IJ cordis with swan at 45, R radial a line and R
wrist PIV all patent. central lines, zeroed, flushed, maintainted. recieved on levo at 6, precedex .5, milronone 0.125, insulin per protocol .
[2025-02-11 14:05] LABS: Glucose - Point of Care 131 mg/dl (70-99)
[2025-02-11 14:22] LABS: B.E. -3.3 mmol/L; HCO3 23.2 mmol/L (21-28); O2 Saturation % 97.3 % (94-98); PCO2 46 mmHg (35-48); PO2 87 mmHg (83-108); Potassium 4.1 mMOL/L (3.5-5.1); Sodium 134 mMOL/L (136-145)
[2025-02-11 14:24] LABS: Hematocrit 39.1 % (39.0-52.0); Hemoglobin 13.2 g/dL (13.0-18.0); Platelet Count 155 10^3/uL (130-400)
--- NOTE | 2025-02-11 14:25 | PTCARENOTE ---
pt awoke and followed commands, precedex titration started
[2025-02-11 14:26] LABS: INR 1.39; PT 17.3 Sec (11.4-14.6)
[2025-02-11 14:27] LABS: APTT 30.6 Sec (23.4-35.0)
[2025-02-11 14:31] LABS: Blood Urea Nitrogen 11 mg/dl (9-20); Estimated Creatinine Clearance > 125 ml/min; Glucose 133 mg/dl (70-99); Magnesium 2.6 mg/dl (1.6-2.3)
[2025-02-11] MEDS: NSS 500 IV (14:37)
[2025-02-11] MEDS: SODIUM BICARBONATE 50 MEQ IV (14:40)
--- NOTE | 2025-02-11 14:50 | CM ---
pt in OR today, cm to follow.
[2025-02-11 15:02] LABS: Glucose - Point of Care 112 mg/dl (70-99)
[2025-02-11] MEDS: ANCEF 10 IV (15:04)
--- NOTE | 2025-02-11 15:31 | PTCARENOTE ---
precedex off, pt awake and following commands easily, cpap trial initiated at 1530
[2025-02-11 16:07] LABS: Glucose - Point of Care 137 mg/dl (70-99)
[2025-02-11 16:15] LABS: B.E. -2.9 mmol/L; HCO3 22.6 mmol/L (21-28); O2 Saturation % 99.0 % (94-98); PCO2 41 mmHg (35-48); PO2 114 mmHg (83-108); Potassium 4.5 mMOL/L (3.5-5.1); Sodium 135 mMOL/L (136-145)
[2025-02-11] MEDS: NEURONTIN PO (16:23)
[2025-02-11] MEDS: PACERONE PO ×2 (16:23→22:03)
--- NOTE | 2025-02-11 16:30 | PTCARENOTE ---
gas sent, CTPA says ok to extubate - Extubated to 6L NC at 1630. able to state full name and .
[2025-02-11 17:03] LABS: Glucose - Point of Care 130 mg/dl (70-99)
[2025-02-11] MEDS: CALCIUM GLUCONATE 100 IV (17:22)
[2025-02-11] MEDS: OFIRMEV 100 IV (17:37)
[2025-02-11 17:44] LABS: Hematocrit 39.3 % (39.0-52.0); Hemoglobin 13.3 g/dL (13.0-18.0); Platelet Count 161 10^3/uL (130-400)
[2025-02-11] MEDS: CRESTOR PO (17:59)
[2025-02-11 18:05] LABS: Glucose - Point of Care 131 mg/dl (70-99)
[2025-02-11] MEDS: LOW STRENGTH ASPIRIN 81 MG PO (18:59)
[2025-02-11] MEDS: SENOKOT-S PO (20:32)
[2025-02-11 20:42] LABS: Glucose - Point of Care 119 mg/dl (70-99)
--- NOTE | 2025-02-11 21:45 | PTCARENOTE ---
cardene started at 2.5 for radial graft per CTPA [place].
[2025-02-11] MEDS: ANCEF 5 IV (22:00)
[2025-02-11] MEDS: NEURONTIN 100 MG PO (22:00)
[2025-02-11 22:08] LABS: Glucose - Point of Care 107 mg/dl (70-99)
[2025-02-11 22:59] LABS: B.E. -6.9 mmol/L; HCO3 17.2 mmol/L (21-28); O2 Saturation % 99.3 % (94-98); PCO2 29 mmHg (35-48); PO2 129 mmHg (83-108); Potassium 3.1 mMOL/L (3.5-5.1)
[2025-02-11 23:18] LABS: B.E. -0.8 mmol/L; HCO3 24.3 mmol/L (21-28); O2 Saturation % 96.1 % (94-98); PCO2 41 mmHg (35-48); PO2 73 mmHg (83-108); Potassium 4.8 mMOL/L (3.5-5.1)
[2025-02-11] MEDS: CORDARONE 103 MG IV (23:18)
[2025-02-12] VITALS (31 sets, daily range): BP systolic 93–146; BP diastolic 40–87; BMI 36.5
--- NOTE | 2025-02-12 | PTCARENOTE ---
Patient received from RN @ 2300. Patient lying in bed w/ call coombs in reach. AOx3. SR on monitor w/ first degree and PVC's. BP 116/64 HR 68 Heart sounds audible w/ rub. Right radial pulse present Left ulnar pulse present w/ Doppler. Pedal
pulses present. No edema noted. V-wire tied around box set at 70/15. Lungs diminished in bases bilaterally. Occasional cough noted POX 94% 6L NC. IS 1000. 2x mediastinal, right, and left pleural set to -20 wall suction draining red fluid. No
crepitus, tidaling, or air leaks noted. Hypoactive bowel sounds. Tolerating ice chips and sips of water. Hong draining clear yellow urine. Sternal dressing dry and intact. Left radial dong wrap dry and intact. JANA saenz w/ brandian @ 45 PAP 44/17
CVP 13 CI 2.86. Right radial A-line leveled and zeroed. Milrinone, Levo, Cardene, and Insulin infusing per protocol. See worklist for more details.
[2025-02-12 00:08] LABS: Glucose - Point of Care 140 mg/dl (70-99)
[2025-02-12] MEDS: ROXICODONE 5 MG PO ×3 (01:59→19:02)
[2025-02-12] MEDS: NOVOLIN R INSULIN INFUSION 100 IV (02:01)
[2025-02-12 02:08] LABS: Glucose - Point of Care 124 mg/dl (70-99)
[2025-02-12 03:30] LABS: Hematocrit 36.4 % (39.0-52.0); Hemoglobin 12.3 g/dL (13.0-18.0); Mean Corp Hgb Conc. 33.8 g/dL (33.0-37.0); Mean Corpuscular Volume 86.9 fL (80.0-94.0); Platelet Count 165 10^3/uL (130-400); Red Cell Dist. Width 14.1 % (11.5-14.5)
[2025-02-12 03:55] LABS: Blood Urea Nitrogen 16 mg/dl (9-20); Calcium 8.6 mg/dl (8.4-10.2); Carbon Dioxide 27 mmol/L (22-30); Chloride 106 mmol/L (98-107); Estimated Creatinine Clearance 119 ml/min; Glucose 106 mg/dl (70-99); Magnesium 2.2 mg/dl (1.6-2.3); Potassium 4.5 mmol/L (3.5-5.1); Sodium 136 mmol/L (135-145); eGFR > 60.00
[2025-02-12 04:00] LABS: Glucose - Point of Care 95 mg/dl (70-99)
--- NOTE | 2025-02-12 04:58 | W.PN.CT ---
Today's Communication / Plan
-
-pod #1
-freq PVCs, brief v-bigeminy - improved after Amio bolus
-CI 2.88, CO 6.48. Drips: Milrinone 0.125, Cardene 2.5 for radial graft, Insulin, Levo is off
-CT outputs: 2 meds 125/235, 2 pleur 65/265 in 12/24 hrs
-wean off Milrinone, then deline
-gave Norvasc around 5 am in order to wean off Cardene for radial graft
-hold BB while on Milrinone
-maintain Foleu while on Milrinone
-current meds (ASA, Plavix, Crestor, Amio, Norvasc for radial, Protonix). Holding BB
-encourage IS, OOB
Assessment / Plan
-
- s/p CABG x 3 (in-situ ERIN to LAD, in-situ ELISE to distal RCA past crux, RA to RPLB2); ELAA (35mm AtriClip) on 02/11/[address] Bernal, pod #1
-Multivessel CAD (LM: 80% distal, LAD: 80-90% ostial, RCA: 90% mid, 70% 2nd PLB)
-NSTEMI (peak trop 7.770)
-[place]
-Newly diagnosed ischemic CM (LVEF 40%)
-HTN
-Hyperlipidemia
-T2DM (A1C 6.3, on diet only)
-Class 2 obesity (BMI 36.5)
-Hx LLE DVT-Spring 2024-treated w/Eliquis x 3 months
-B/L GSV unsuitable for conduit
-S/P Left eustachian tube repair
-Acute postop blood loss anemia
-Acute postop atelectasis/respiratory insufficiency
-Acute postop hypovolemia with subsequent hypervolemia
Discussed patient care with: Nursing and Care Team
Subjective
-
Date of Service: February 12, 2025
Objective Data
-
PT 17.3 Sec (11.4-14.6) H 02/11/25 13:55
INR 1.39 02/11/25 13:55
APTT 30.6 Sec (23.4-35.0) 02/11/25 13:55
Vital Signs
Vital Signs
Temp Pulse Resp BP Pulse Ox
99.7 F 72 23 115/68 94
02/12/25 02:00 02/12/25 02:00 02/12/25 02:00 02/12/25 02:00 02/12/25 02:00
CT Intake/Output/Weight
02/11/25 02/11/25 02/12/25
06:59 18:59 06:59
Intake Total 475 / 955 249.8 / 648.6 398.8 / 648.6
Output Total 870 / 1460 590 / 1460
Balance 475 / 955 -620.2 / -811.4 -191.2 / -811.4
SaO2: 94
Physical Exam
-
General: Awake and AOx3
Cardiovascular: Regular rate & rhythm, No Murmurs and Rub
Respiratory: Decreased Breath Sounds
Sternum: Stable
Incision: Clean, Dry and Intact
Extremities: No Edema
Abdomen: soft, nontender, nondistended, + decreased bowel sounds
Data Reviewed
-
Lab Results: Results Reviewed
Medications: Active Meds Reviewed
Chest X-Ray: Report Reviewed and Image Reviewed
ECG: Report Reviewed and Image Reviewed
[2025-02-12] MEDS: TYLENOL 1000 MG PO ×3 (05:06→21:08)
[2025-02-12] MEDS: NORVASC 2.5 MG PO (05:06)
[2025-02-12] MEDS: ANCEF 5 IV ×2 (05:06→13:55)
--- NOTE | 2025-02-12 05:31 | PTCARENOTE ---
Patient reassessed. Frequent cough w/ hardy sputum noted. Norvasc given per HIEN Guzman. Labs drawn. SR w/ first degree block on monitor. VSS.
[2025-02-12 06:08] LABS: Glucose - Point of Care 107 mg/dl (70-99)
[2025-02-12] MEDS: PRIMACOR 20 MG 100 IV (06:19)
[2025-02-12] MEDS: NOVOLOG FLEXPEN SC ×3 (07:13→17:49)
--- NOTE | 2025-02-12 07:59 | W.PN.INTV ---
Today's Communication / Plan
Recommendations
- Continue to wean O2 and pressors as tolerated
- Incentive spirometry
Assessment
-
atient is a 59-year-old gentleman with history of hypertension, hyperlipidemia, diabetes and prior DVT who presented to the hospitalist service on 02/02 with upper back pain with radiation to her chest. Patient subsequently noted to have elevated
troponin and diagnosed with non-ST elevation myocardial infarction. He was evaluated by cardiology service and a left heart catheterization done which was suggestive of multivessel coronary artery disease. Patient was subsequently evaluated by CT
surgery service and coronary artery bypass graft surgery was recommended. On 02/11, patient was taken to the OR for the above procedure. Postprocedure, patient admitted to CVICU and tow bar driver consultation was requested for further input.
59-year-old gentleman with NSTEMI, multivessel disease on coronary angiogram, s/p coronary artery bypass graft x3 and left atrial appendage exclusion POD # 1
Titrate off pressors per protocol, currently milrinone infusion at 0.125, current MAP of 70
ECHO reviewed with slightly reduced EF, 40-45%
PA catheter readings reviewed, /, mean 22.
Management of chest tubes per primary service
CXR suggestive of improving left lower lobe atelectasis
Extubated per protocol, currently saturating 98% on 4 L supplemental oxygen. Work of breathing normal. No respiratory distress noted.
Maintain supplement oxygen as needed
No prior history of pulmonary disease, no history of smoking per patient
Can add nebulizers if needed
Aspiration precautions
Encouraged incentive spirometry, OOB/ambulation/early mobility
GI prophylaxis: Protonix
Monitor critical I/O's
Hong/chest tube output
Trend CBC for now
Can transfuse if indicated for Hb <7, plt <50 in surgical patients
DVT prophylaxis including SCDs
Insulin protocol initiated and ongoing
Transition to SQ/off as indicated per team
Other medical diagnoses:
- Pulmonary nodules. RLL (3x2.3x1.8 cm) and LLL. Appear to be scarring with Bronchiectasis. Will need CT surveillance as out patient and possibly tissue diagnosis and BAL. Outpatient follow-up with pulmonary clinic. Information left in the
discharge section.
Critical Care time 38 mins -- The patient is admitted for acute critical illness for the treatment of vital organ failure and/or prevention of further life-threatening conditions. Total care includes time spent in review of history, physical exam,
medications, hemodynamic/ventilator parameters, laboratory data, imaging and discussion with house staff, pharmacy, respiratory therapy, telegraph and teletype operator, and nursing
Data:
[facility] 01/2025: 1. Right dominant circulation with an enormous RCA that serves the right coronary and circumflex territories with a culprit 90% lesion in the mid RCA and a 70% lesion in the second posterolateral branch as well as an 80% lesion in the
distal left main coronary artery leading into an 80-90% lesion in the ostium of the LAD as well as a vestigial circumflex.
2. Mildly elevated filling pressures (LVEDP = 14 mmHg at 112.5 kg).
ECHO 01/2025: 1. Left ventricle is mildly dilated with mildly reduced systolic function. LVEF 40-45%.
2. Hypokinesis of the mid to apical anterolateral/inferolateral wall, basal to apical inferior wall, and apex.
3. No significant valvular disease.
4. Ectatic aortic root (3.9 cm).
5. No prior study available for comparison
CT Chest 01/2025: Ascending aorta has top of caliber with short axis diameter 4.0 cm at the level the right main pulmonary artery. There is no significant calcification of the ascending aorta.
Moderate calcification involving the inferior aortic arch in the region of the ligamentum arteriosum.
2 focal areas of linear and ground-glass opacity, one within the posterior aspect of the right lower lobe and the second within the posterior aspect of the left lower lobe. Morphologically, the appearance is highly suggestive of focal areas of
scarring. It is probably prudent to obtain a follow-up CT of the chest with suggested timeframe of 6 months initially.
Fatty infiltration of the liver.
Incompletely visualized predominantly cystic mass arising in the right kidney, which appears to have peripheral calcification. This is likely a benign peripherally calcified cystic mass, but is incompletely visualized. Therefore further evaluation
is advised, to begin with a dedicated renal ultrasound.
Subjective Dataa
Subjective Data
Date of Service:
Date of Service: February 12, 2025
Subjective:
Patient comfortably lying in bed in no acute distress.
Review of Systems
Genitourinary: Other (Other than postoperative pain, all 14 systems reviewed and negative except as stated above in the history of present illness.)
Objective Data
Data Reviewed
Vital Signs / I&O / Oxygen:
Vital Signs
Temp Pulse Resp BP Pulse Ox
99.5 F 74 8 114/61 96
02/12/25 06:00 02/12/25 06:00 02/12/25 06:00 02/12/25 06:00 02/12/25 06:00
Intake and Output
02/11/25 02/12/25 02/13/25
06:59 06:59 06:59
Intake Total 955 / 955 828.9 / 828.9
Output Total 1775 / 1775
Balance 955 / 955 -946.1 / -946.1
SaO2 [CPAP] 94
SaO2 [SIMV] 98
SaO2 96
Nasal Cannula flow liters per 4
minute
Physical Exam
General: Comfortable
HEENT: Normocephalic
Cardiovascular: S1-S2
Respiratory: Clear and Non-Labored Respirations
GI: Soft and Non Distended
Neurology: Awake and Alert
Skin: Warm
Labs/Micro/Reports
Lab Data
02/12/25 03:00
02/12/25 03:00
Laboratory Results
02/11/25 02/11/25 02/11/25
10:00 13:55 16:03
PT 17.3 H
INR 1.39
APTT Cancelled 30.6
pH 7.31 L 7.35
pCO2 46 41
pO2 87 114 H
HCO3 23.2 22.6
O2 Delivery Level
02/11/25 02/11/25
22:55 23:13
PT
INR
APTT
pH 7.38 7.38
pCO2 29 L 41
pO2 129 H 73 L
HCO3 17.2 L 24.3
O2 Delivery Level
--- NOTE | 2025-02-12 08:00 | PTCARENOTE ---
resumed care of patient from previous RN. Walking rounds completed. Pt resting in bed at time of assessment. Usual lines remain, CTx4 to -20 wall suction without air leak/crepitus. 98%4L nc weaned to 2L. Lungs diminished but clear. IS 1250. SR 1AV
and BBB. HR 80. Temp pacer box present but not connected. Will order clear liquid tray. tolerating sips and chips from overnight. Hong draining clear yellow urine. +1 edema. pulses palpable. milrinone on 0.125 as ordered and insulin infusing per
glycemic protocol. CI >2. will continue to monitor.
--- NOTE | 2025-02-12 08:34 | W.PN.CD ---
Today's Communication / Plan
-
- Clinically stable.
- Continue routine postoperative care as directed by CT surgery.
- Remains on low-dose milrinone.
- environmental monitoring technician; will continue to follow.
Impression / Plan
-
Impression/Plan: 59 y/o male with HTN, HLD, NIDDM and history of provoked DVT admitted with NSTEMI; subsequent cardiac catheterization revealed multivessel coronary artery disease.
#CAD/NSTEMI s/p CABGx3 on 02/11/2025:
- Clinically stable.
- Continue routine postoperative care as directed by CT surgery.
- Remains on low-dose milrinone.
- Titrate pressors/inotropes to MAP > 65 mmHg, CI > 1.8 L/min/m2.
- Pain/chest tube management per CT Surgery.
- environmental monitoring technician; will continue to follow.
#Ischemic Cardiomyopathy (EF 40-45%):
-New diagnosis.
-LVEF 40 to 45%.
-Will optimize GDMT throughout hospitalization; currently on milrinone.
#DM2:
-Chronic, diet controlled.
-HgbA1C 6.3%.
-Management per primary team.
-There will be a role for GLP-1 agonists as an outpatient.
#HTN:
-Chronic, stable.
-Titrate anti-hypertensives in the post operative setting.
#HLD:
-Chronic, uncontrolled.
-Total cholesterol = 207, LDL = 111, HDL = 37, Triglycerides = 416.
-Continue Rosuvastatin 20 mg daily.
#hx DVT:
-Previously on apixaban x 3 months.
-Chronic, non-occlusive thrombus identified in the bilateral great saphenous veins.
-We will consider restarting therapeutic anticoagulation after surgery.
Subjective/Interval History:
Chest pain over the weeked.
Patient to OR today.
DATA:
Chest CT, 02/04/2025:
IMPRESSION:
Ascending aorta has top of caliber with short axis diameter 4.0 cm at the level the right main pulmonary artery. There is no significant calcification of the ascending aorta.
Moderate calcification involving the inferior aortic arch in the region of the ligamentum arteriosum.
2 focal areas of linear and groundglass opacity, one within the posterior aspect of the right lower lobe and the second within the posterior aspect of the left lower lobe. Morphologically, the appearance is highly suggestive of focal areas of
scarring. It is probably prudent to obtain a follow-up CT of the chest with suggested timeframe of 6 months initially.
Fatty infiltration of the liver.
Incompletely visualized predominantly cystic mass arising in the right kidney, which appears to have peripheral calcification. This is likely a benign peripherally calcified cystic mass, but is incompletely visualized. Therefore further evaluation
is advised, to begin with a dedicated renal ultrasound.
Carotid US, 02/04/2025:
IMPRESSION:
RIGHT: No significant carotid plaque identified. Carotid velocity measurements are consistent with less than 50% internal carotid artery stenosis. Vertebral artery flow is antegrade.
LEFT: Mixed plaque is identified in the carotid bulb. Carotid velocity measurements are consistent with less than 50% internal carotid artery stenosis. Vertebral artery flow is antegrade.
LLE Duplex, 02/04/2025:
IMPRESSION:
RIGHT LOWER EXTREMITY: Vein diameters are as listed above. Chronic nonocclusive wall adherent thrombus identified in the great saphenous vein from the knee to the mid thigh. Wall thickening identified in the small saphenous vein.
LEFT LOWER EXTREMITY: Vein diameters are as listed above. Chronic nonocclusive wall adherent thrombus identified in the great saphenous vein at the knee and distal thigh segments.
Cardiac Catheterization, 02/04/2025:
CONCLUSIONS
1. Right dominant circulation with an enormous RCA that serves the right coronary and circumflex territories with a culprit 90% lesion in the mid RCA and a 70% lesion in the second posterolateral branch as well as an 80% lesion in the distal left
main coronary artery leading into an 80-90% lesion in the ostium of the LAD as well as a vestigial circumflex.
2. Mildly elevated filling pressures (LVEDP = 14 mmHg at 112.5 kg).
TTE, 02/04/2025:
SUMMARY
1. Left ventricle is mildly dilated with mildly reduced systolic function. LVEF 40-45%.
2. Hypokinesis of the mid to apical anterolateral/inferolateral wall, basal to apical inferior wall, and apex.
3. No significant valvular disease.
4. Ectatic aortic root (3.9 cm).
5. No prior study available for comparison.
Physical Exam
Vital Signs/Labs
Vital Signs
Temp Pulse Resp BP Pulse Ox
99.0 F 69 16 114/62 98
02/12/25 08:00 02/12/25 08:00 02/12/25 08:00 02/12/25 08:00 02/12/25 08:00
02/11/25 02/12/25 02/13/25
06:59 06:59 06:59
Actual Weight 112 kg
02/12/25 03:00
02/12/25 03:00
PT 17.3 Sec (11.4-14.6) H 02/11/25 13:55
INR 1.39 02/11/25 13:55
APTT 30.6 Sec (23.4-35.0) 02/11/25 13:55
Magnesium 2.2 mg/dl (1.6-2.3) 02/12/25 03:00
Triglycerides 416 mg/dl (10-149) H 02/02/25 03:45
LDL Cholesterol, Calc mg/dl 02/02/25 03:45
VLDL Cholesterol, Calc mg/dl (0-30) 02/02/25 03:45
HDL Cholesterol 37 mg/dl 02/02/25 03:45
02/02/25
03:45
Sge-J-Hymyazsylbj Pept 1290
Physical Exam
Constitutional: No acute distress and Comfortable
EENT: Anicteric and Moist mucous membranes
Cardiovascular: Rhythm & rate is regular, Pedal edema is absent, Systolic murmur absent and S1S2 is normal
Respiratory: Respiratory effort normal and Lungs clear to auscul.
GI: Soft and Non tender
Neuro/Psych: AO x 3
Other: Skin (Warm, dry, intact)
Data Reviewed
-
Date of Service: February 12, 2025
EKG: Tracing Personally Visualized and interpreted (Telemetry: Sinus rhythm)
Echo: Report Reviewed by me (EF 40-45%)
Critical Care Time (in minutes): 38
[2025-02-12] MEDS: PROTONIX 40 MG PO (08:39)
[2025-02-12] MEDS: NEURONTIN 100 MG PO ×3 (08:39→21:08)
[2025-02-12] MEDS: PLAVIX 75 MG PO (08:40)
[2025-02-12] MEDS: LOW STRENGTH ASPIRIN 81 MG PO (08:40)
[2025-02-12] MEDS: PACERONE 200 MG PO ×3 (08:40→21:08)
[2025-02-12] MEDS: LIDOCAINE 4% PATCH TOPICAL (08:41)
[2025-02-12] MEDS: BACTROBAN 2% OINTMENT 1 APPLIC NASAL ×2 (08:41→19:03)
[2025-02-12] MEDS: NSS IV (08:42)
[2025-02-12 08:49] LABS: Glucose - Point of Care 108 mg/dl (70-99)
--- NOTE | 2025-02-12 10:21 | W.PN.ANS.POP ---
Anesthesia Post Operative
- Anesthesia Post Op Note
Vital Signs Stable-See Nursing Note: Yes
Airway Patent: Yes
Adequate Pain Control: Yes
Change in Mental Status: No
Current Postoperative Nausea & Vomiting: No
Anesthesia Complications: No
General Anesthetic Recall: No
Unplanned Admission: No
Post Op Hydration Adequate: Yes
[2025-02-12] MEDS: LIDOCAINE 4% PATCH 1 PATCH TOPICAL (11:08)
[2025-02-12] MEDS: SENOKOT-S 1 TABLET PO ×2 (11:08→19:02)
[2025-02-12] MEDS: MAGNESIUM OXIDE 400 MG PO ×2 (11:08→19:02)
[2025-02-12 11:12] LABS: Glucose - Point of Care 104 mg/dl (70-99)
--- NOTE | 2025-02-12 12:00 | PTCARENOTE ---
d/c clif as ordered. remains on milrinone and insulin per glycemic protocol. no additional changes in assessment. will continue to monitor
[2025-02-12 14:00] LABS: Glucose - Point of Care 94 mg/dl (70-99)
--- NOTE | 2025-02-12 16:00 | PTCARENOTE ---
Patient reassessed. no changes in assessment. oob to BSC to attempt bowel movement without success. transferred well. VSS. will continue to monitor.
[2025-02-12 16:51] LABS: Glucose - Point of Care 121 mg/dl (70-99)
[2025-02-12] MEDS: CRESTOR 20 MG PO (17:46)
[2025-02-12 18:40] LABS: Glucose - Point of Care 146 mg/dl (70-99)
--- NOTE | 2025-02-12 19:00 | PTCARENOTE ---
Patient received from RN @ 1900. Patient lying in bed w/ call coombs in reach. AOx3. SR on monitor w/ first degree and PVC's. BP 123/58 HR 83. Left ulnar and right radial pulses present. Bilateral pedal pulses present. +1 generalized edema
noted. V-wires set to 70/15/2 and tied around box. Heart sounds audible w/ rub. IS 1250. POX 97% 1L NC. 2x mediastinal and R/L pleural CT set to -20 suction draining serosanguineous fluid. No crepitus, tidaling, or air leaks noted.
Diminished appetite w/ hypoactive bowel sounds. Hong draining clear yellow urine. Sternal dressing dry and intact. Left radial incision well approximated KWAN. CT dressing dry and intact. RIJ cordis w/ swan @ 45 PAP 47/17 CVP 11 CI 3.48. Right
PIV patent and intact. Insulin and milrinone infusing per protocol. See worklist for more details.
[2025-02-12] MEDS: REMOVE LIDOCAINE PATCH 1 PATCH REMOVE (19:03)
[2025-02-12 20:19] LABS: Glucose - Point of Care 111 mg/dl (70-99)
[2025-02-12] MEDS: MUCINEX 600 MG PO (21:08)
--- NOTE | 2025-02-12 21:42 | PTCARENOTE ---
Patient temperature elevated. HIEN Guzman notified. Tylenol given and IS encouraged.
[2025-02-12 22:46] LABS: Glucose - Point of Care 113 mg/dl (70-99)
[2025-02-13] VITALS (26 sets, daily range): BP systolic 94–145; BP diastolic 55–88; PULSE 78; O2SAT 93; BMI 36.8
--- NOTE | 2025-02-13 00:09 | PTCARENOTE ---
Patient reassessed. SR w/ first degree on monitor. Patient states he is comfortable. BP 106/60 HR 82 POX 96% 1L NC
[2025-02-13 01:05] LABS: Glucose - Point of Care 122 mg/dl (70-99)
[2025-02-13 02:09] LABS: Glucose - Point of Care 123 mg/dl (70-99)
[2025-02-13 03:07] LABS: Glucose - Point of Care 104 mg/dl (70-99)
[2025-02-13 03:23] LABS: Hematocrit 33.8 % (39.0-52.0); Hemoglobin 11.2 g/dL (13.0-18.0); Mean Corp Hgb Conc. 33.1 g/dL (33.0-37.0); Mean Corpuscular Volume 89.9 fL (80.0-94.0); Platelet Count 136 10^3/uL (130-400); Red Cell Dist. Width 14.5 % (11.5-14.5)
[2025-02-13] MEDS: PRIMACOR 20 MG 100 IV (04:03)
[2025-02-13 04:10] LABS: Glucose - Point of Care 95 mg/dl (70-99)
--- NOTE | 2025-02-13 04:13 | PTCARENOTE ---
Patient reassessed. SR w/ first degree on monitor. BP 111/59 HR 87 POX 95% 1L NC. Labs drawn. Temperature continues to be elevated. IS encouraged.
[2025-02-13 04:16] LABS: Blood Urea Nitrogen 16 mg/dl (9-20); Calcium 8.3 mg/dl (8.4-10.2); Carbon Dioxide 27 mmol/L (22-30); Chloride 104 mmol/L (98-107); Estimated Creatinine Clearance > 125 ml/min; Glucose 120 mg/dl (70-99); Magnesium 2.1 mg/dl (1.6-2.3); Potassium 4.4 mmol/L (3.5-5.1); Sodium 132 mmol/L (135-145); eGFR > 60.00
[2025-02-13 05:02] LABS: Glucose - Point of Care 106 mg/dl (70-99)
--- NOTE | 2025-02-13 05:33 | W.PN.CT ---
Addendum entered and electronically signed by Warren Bernal MD 02/13/25 07:34:
I saw and examined the patient.
The PA's note was reviewed and I agree with the note.
Comment:
Doing well. 100.6. VSS. RA. GTTS: milrinone 0.125. UO: 700/1165. Tolerating PO.
- D/C milrinone today
- D/C SGC cath once stable off milrinone
- D/C CTs
- D/C Hong
- OOB/IS/ambulate
Original Note:
Today's Communication / Plan
-
-pod #2
-no issues overnight
-CI 4.11, CO 9.24 Drips: Milrinone 0.125, Insulin
-CT outputs: 2 meds 35/135, 2 pleur 20/85 in 12/24 hrs
-wean off Milrinone, then deline
-hold BB while on Milrinone
-maintain Ohng while on Milrinone
-current meds (ASA, Plavix, Crestor, Amio, Norvasc for radial, Mucinex, Protonix). Holding BB
-encourage IS, OOB
Assessment / Plan
-
- s/p CABG x 3 (in-situ ERIN to LAD, in-situ ELISE to distal RCA past crux, RA to RPLB2); ELAA (35mm AtriClip) on 02/11/[address] Bernal, pod #2
-Multivessel CAD (LM: 80% distal, LAD: 80-90% ostial, RCA: 90% mid, 70% 2nd PLB)
-NSTEMI (peak trop 7.770)
-[place]
-Newly diagnosed ischemic CM (LVEF 40%)
-HTN
-Hyperlipidemia
-T2DM (A1C 6.3, on diet only)
-Class 2 obesity (BMI 36.5)
-Hx LLE DVT-Spring 2024-treated w/Ryan x 3 months
-B/L GSV unsuitable for conduit
-S/P Left eustachian tube repair
-Acute postop blood loss anemia
-Acute postop atelectasis/respiratory insufficiency
-Acute postop hypovolemia with subsequent hypervolemia
-Acute postop hyponatremia
Discussed patient care with: Nursing and Care Team
Subjective
-
Date of Service: February 13, 2025
Objective Data
-
PT 17.3 Sec (11.4-14.6) H 02/11/25 13:55
INR 1.39 02/11/25 13:55
APTT 30.6 Sec (23.4-35.0) 02/11/25 13:55
Vital Signs
Vital Signs
Temp Pulse Resp BP Pulse Ox
100.3 F 80 12 106/60 96
02/13/25 00:06 02/13/25 00:00 02/13/25 00:06 02/13/25 00:00 02/13/25 00:06
CT Intake/Output/Weight
02/12/25 02/12/25 02/13/25
06:59 18:59 06:59
Intake Total 579.1 / 828.9 453.8 / 646.725 192.925 / 646.725
Output Total 905 / 1775 630 / 1070 440 / 1070
Balance -325.9 / -946.1 -176.2 / -423.275 -247.075 / -423.275
SaO2: 96
Physical Exam
-
General: Awake and AOx3
Cardiovascular: Regular rate & rhythm, No Murmurs and Rub
Respiratory: Decreased Breath Sounds
Sternum: Stable
Incision: Clean, Dry and Intact
Extremities: Edema +1
Abdomen: soft, nontender, nondistended, + bowel sounds
Data Reviewed
-
Lab Results: Results Reviewed
Medications: Active Meds Reviewed
Chest X-Ray: Report Reviewed and Image Reviewed
ECG: Report Reviewed and Image Reviewed
[2025-02-13 06:07] LABS: Glucose - Point of Care 123 mg/dl (70-99)
[2025-02-13] MEDS: TYLENOL 1000 MG PO ×3 (06:14→20:20)
[2025-02-13] MEDS: ROXICODONE 5 MG PO (06:16)
[2025-02-13 07:36] LABS: Glucose - Point of Care 119 mg/dl (70-99)
[2025-02-13] MEDS: NOVOLOG FLEXPEN 4 UNITS SC (07:38)
--- NOTE | 2025-02-13 07:46 | PTCARENOTE ---
assumed care of pt from previous shift RN, sinus rhythm on tele, VSS, + peripheral pulses, +1 edema to bilateral lower extremities. Lungs diminished, pox 96% on 1L NC. +bs, tolerating PO intake, zhu draining yellow. CTx4 w minimal amount of
drainage. Right IJ cordis w swan floated to 45, post op sites stable. Plan of care reviewed w the pt and questions encouraged.
--- NOTE | 2025-02-13 08:06 | W.PN.CD ---
Today's Communication / Plan
-
- Stable and in sinus rhyhtm
- Continue routine postoperative care as directed by CT surgery.
-Optimize GDMT post op Currently on low dose BB. Otherwisie limited by BP
Impression / Plan
-
Impression/Plan: 59 y/o male with HTN, HLD, NIDDM and history of provoked DVT admitted with NSTEMI; subsequent cardiac catheterization revealed multivessel coronary artery disease.
#CAD/NSTEMI s/p CABGx3 on 02/11/2025:
- Stable and in sinus rhyhtm
- Continue routine postoperative care as directed by CT surgery.
#Ischemic Cardiomyopathy (EF 40-45%):
-New diagnosis.
-LVEF 40 to 45%.
-Optimize GDMT post op Currently on low dose BB. Othersie limited by BP
#DM2:
-Chronic, diet controlled.
-HgbA1C 6.3%
#HLD:
-Continue Rosuvastatin
#hx DVT:
-Previously on apixaban x 3 months.
-Chronic, non-occlusive thrombus identified in the bilateral great saphenous veins.
-We will consider restarting therapeutic anticoagulation after surgery.
Subjective/Interval History:
Chest pain over the weeked.
Patient to OR today.
DATA:
Chest CT, 02/04/2025:
IMPRESSION:
Ascending aorta has top of caliber with short axis diameter 4.0 cm at the level the right main pulmonary artery. There is no significant calcification of the ascending aorta.
Moderate calcification involving the inferior aortic arch in the region of the ligamentum arteriosum.
2 focal areas of linear and groundglass opacity, one within the posterior aspect of the right lower lobe and the second within the posterior aspect of the left lower lobe. Morphologically, the appearance is highly suggestive of focal areas of
scarring. It is probably prudent to obtain a follow-up CT of the chest with suggested timeframe of 6 months initially.
Fatty infiltration of the liver.
Incompletely visualized predominantly cystic mass arising in the right kidney, which appears to have peripheral calcification. This is likely a benign peripherally calcified cystic mass, but is incompletely visualized. Therefore further evaluation
is advised, to begin with a dedicated renal ultrasound.
Carotid US, 02/04/2025:
IMPRESSION:
RIGHT: No significant carotid plaque identified. Carotid velocity measurements are consistent with less than 50% internal carotid artery stenosis. Vertebral artery flow is antegrade.
LEFT: Mixed plaque is identified in the carotid bulb. Carotid velocity measurements are consistent with less than 50% internal carotid artery stenosis. Vertebral artery flow is antegrade.
LLE Duplex, 02/04/2025:
IMPRESSION:
RIGHT LOWER EXTREMITY: Vein diameters are as listed above. Chronic nonocclusive wall adherent thrombus identified in the great saphenous vein from the knee to the mid thigh. Wall thickening identified in the small saphenous vein.
LEFT LOWER EXTREMITY: Vein diameters are as listed above. Chronic nonocclusive wall adherent thrombus identified in the great saphenous vein at the knee and distal thigh segments.
Cardiac Catheterization, 02/04/2025:
CONCLUSIONS
1. Right dominant circulation with an enormous RCA that serves the right coronary and circumflex territories with a culprit 90% lesion in the mid RCA and a 70% lesion in the second posterolateral branch as well as an 80% lesion in the distal left
main coronary artery leading into an 80-90% lesion in the ostium of the LAD as well as a vestigial circumflex.
2. Mildly elevated filling pressures (LVEDP = 14 mmHg at 112.5 kg).
TTE, 02/04/2025:
SUMMARY
1. Left ventricle is mildly dilated with mildly reduced systolic function. LVEF 40-45%.
2. Hypokinesis of the mid to apical anterolateral/inferolateral wall, basal to apical inferior wall, and apex.
3. No significant valvular disease.
4. Ectatic aortic root (3.9 cm).
5. No prior study available for comparison.
Physical Exam
Vital Signs/Labs
Vital Signs
Temp Pulse Resp BP Pulse Ox
99.4 F 79 9 103/72 95
02/13/25 07:00 02/13/25 07:30 02/13/25 07:30 02/13/25 07:30 02/13/25 07:30
02/12/25 02/13/25 02/14/25
06:59 06:59 06:59
Actual Weight 112 kg 112.9 kg
02/13/25 03:11
02/13/25 03:11
PT 17.3 Sec (11.4-14.6) H 02/11/25 13:55
INR 1.39 02/11/25 13:55
APTT 30.6 Sec (23.4-35.0) 02/11/25 13:55
Magnesium 2.1 mg/dl (1.6-2.3) 02/13/25 03:11
Triglycerides 416 mg/dl (10-149) H 02/02/25 03:45
LDL Cholesterol, Calc mg/dl 02/02/25 03:45
VLDL Cholesterol, Calc mg/dl (0-30) 02/02/25 03:45
HDL Cholesterol 37 mg/dl 02/02/25 03:45
02/02/25
03:45
Djt-H-Eovgefvmfjd Pept 1290
Physical Exam
Constitutional: No acute distress
Cardiovascular: Rhythm & rate is regular
Respiratory: Respiratory effort normal
GI: Soft
Neuro/Psych: Alert
Data Reviewed
-
Date of Service: February 13, 2025
Medical Decision Making: Reviewed Test Results
Echo: Report Reviewed by me
Medical Tests (PFT, Pathology etc): Report Reviewed by me
Labs: Labs Reviewed by me
--- NOTE | 2025-02-13 08:17 | W.PN.INTV ---
Today's Communication / Plan
Recommendations
- Wean milrinone
- Incentive spirometry
- Genetic Coordinator service will sign off once patient transferred out of CVICU
- Outpatient follow-up with pulmonary clinic
Assessment
-
alyssia is a 59-year-old gentleman with history of hypertension, hyperlipidemia, diabetes and prior DVT who presented to the hospitalist service on 02/02 with upper back pain with radiation to her chest. Patient subsequently noted to have elevated
troponin and diagnosed with non-ST elevation myocardial infarction. He was evaluated by cardiology service and a left heart catheterization done which was suggestive of multivessel coronary artery disease. Patient was subsequently evaluated by CT
surgery service and coronary artery bypass graft surgery was recommended. On 02/11, patient was taken to the OR for the above procedure. Postprocedure, patient admitted to CVICU and chief deputy court clerk consultation was requested for further input.
59-year-old gentleman with NSTEMI, multivessel disease on coronary angiogram, s/p coronary artery bypass graft x3 and left atrial appendage exclusion POD # 2
Titrate off pressors per protocol, currently milrinone infusion at 0.125 (scheduled to be turned off), current MAP of 82
ECHO reviewed with slightly reduced EF, 40-45%
PA catheter readings reviewed, , mean 21.
Management of chest tubes per primary service
CXR suggestive of improving left lower lobe atelectasis
Extubated per protocol, currently saturating 96% on 1 L supplemental oxygen. Work of breathing normal. No respiratory distress noted.
Maintain supplement oxygen as needed
No prior history of pulmonary disease, no history of smoking per patient
Can add nebulizers if needed
Aspiration precautions
Encouraged incentive spirometry, OOB/ambulation/early mobility
GI prophylaxis: Protonix
Monitor critical I/O's
Hong/chest tube output
Trend CBC for now
Can transfuse if indicated for Hb <7, plt <50 in surgical patients
DVT prophylaxis including SCDs
Insulin protocol initiated and ongoing
Transition to SQ/off as indicated per team
Other medical diagnoses:
- Pulmonary nodules. RLL (3x2.3x1.8 cm) and LLL. Appear to be scarring with Bronchiectasis. Will need CT surveillance as out patient and possibly tissue diagnosis and BAL. Outpatient follow-up with pulmonary clinic. Information left in the
discharge section.
Critical Care time 36 mins -- The patient is admitted for acute critical illness for the treatment of vital organ failure and/or prevention of further life-threatening conditions. Total care includes time spent in review of history, physical exam,
medications, hemodynamic/ventilator parameters, laboratory data, imaging and discussion with house staff, pharmacy, respiratory therapy, blade boner, and nursing
Data:
[facility] 01/2025: 1. Right dominant circulation with an enormous RCA that serves the right coronary and circumflex territories with a culprit 90% lesion in the mid RCA and a 70% lesion in the second posterolateral branch as well as an 80% lesion in the
distal left main coronary artery leading into an 80-90% lesion in the ostium of the LAD as well as a vestigial circumflex.
2. Mildly elevated filling pressures (LVEDP = 14 mmHg at 112.5 kg).
ECHO 01/2025: 1. Left ventricle is mildly dilated with mildly reduced systolic function. LVEF 40-45%.
2. Hypokinesis of the mid to apical anterolateral/inferolateral wall, basal to apical inferior wall, and apex.
3. No significant valvular disease.
4. Ectatic aortic root (3.9 cm).
5. No prior study available for comparison
CT Chest 01/2025: Ascending aorta has top of caliber with short axis diameter 4.0 cm at the level the right main pulmonary artery. There is no significant calcification of the ascending aorta.
Moderate calcification involving the inferior aortic arch in the region of the ligamentum arteriosum.
2 focal areas of linear and ground-glass opacity, one within the posterior aspect of the right lower lobe and the second within the posterior aspect of the left lower lobe. Morphologically, the appearance is highly suggestive of focal areas of
scarring. It is probably prudent to obtain a follow-up CT of the chest with suggested timeframe of 6 months initially.
Fatty infiltration of the liver.
Incompletely visualized predominantly cystic mass arising in the right kidney, which appears to have peripheral calcification. This is likely a benign peripherally calcified cystic mass, but is incompletely visualized. Therefore further evaluation
is advised, to begin with a dedicated renal ultrasound.
Subjective Dataa
Subjective Data
Date of Service:
Date of Service: February 13, 2025
Subjective:
Comfortably sitting in chair in no acute distress.
Review of Systems
Genitourinary: Other (All 14 systems reviewed and negative except as stated above in the history of present illness.)
Objective Data
Data Reviewed
Vital Signs / I&O / Oxygen:
Vital Signs
Temp Pulse Resp BP Pulse Ox
99.4 F 79 9 103/72 95
02/13/25 07:00 02/13/25 07:30 02/13/25 07:30 02/13/25 07:30 02/13/25 07:30
Intake and Output
02/12/25 02/13/25 02/14/25
06:59 06:59 06:59
Intake Total 828.9 / 828.9 832.100 / 832.100
Output Total 1775 / 1775 1455 / 1455
Balance -946.1 / -946.1 -622.900 / -622.900
SaO2 [CPAP] 94
SaO2 [SIMV] 98
SaO2 95
Nasal Cannula flow liters per 1
minute
Physical Exam
General: Comfortable
HEENT: Normocephalic
Cardiovascular: S1-S2 and Peripheral Edema (Trace edema)
Respiratory: Clear and Non-Labored Respirations
GI: Soft and Non Distended
Neurology: Awake and Alert
Skin: Warm
Labs/Micro/Reports
Lab Data
02/13/25 03:11
02/13/25 03:11
[2025-02-13] MEDS: NEURONTIN 100 MG PO ×3 (08:52→22:02)
[2025-02-13] MEDS: PLAVIX 75 MG PO (08:52)
[2025-02-13] MEDS: PROTONIX 40 MG PO (08:52)
[2025-02-13] MEDS: MUCINEX 600 MG PO ×2 (08:52→20:20)
[2025-02-13] MEDS: NORVASC 2.5 MG PO (08:52)
[2025-02-13] MEDS: PACERONE 200 MG PO ×3 (08:52→22:02)
[2025-02-13] MEDS: MAGNESIUM OXIDE 400 MG PO ×2 (08:52→20:20)
[2025-02-13] MEDS: SENOKOT-S 1 TABLET PO ×2 (08:52→20:20)
[2025-02-13] MEDS: LOW STRENGTH ASPIRIN 81 MG PO (08:52)
[2025-02-13] MEDS: LIDOCAINE 4% PATCH 1 PATCH TOPICAL (08:52)
[2025-02-13] MEDS: BACTROBAN 2% OINTMENT 1 APPLIC NASAL ×2 (08:53→20:20)
--- NOTE | 2025-02-13 09:19 | PTCARENOTE ---
Pt assisted from chair to bed. CTs removed, V wire insulated. zhu removed.
[2025-02-13 10:11] LABS: Glucose - Point of Care 175 mg/dl (70-99)
[2025-02-13 12:04] LABS: Glucose - Point of Care 129 mg/dl (70-99)
[2025-02-13] MEDS: NSS 500 IV (12:04)
[2025-02-13] MEDS: NOVOLOG FLEXPEN-MODERATE RESISTANCE SC ×2 (12:05→17:14)
[2025-02-13 13:49] LABS: Glucose - Point of Care 168 mg/dl (70-99)
[2025-02-13] MEDS: CRESTOR 20 MG PO (16:11)
[2025-02-13 17:12] LABS: Glucose - Point of Care 140 mg/dl (70-99)
[2025-02-13] MEDS: LOPRESSOR 12.5 MG PO (20:20)
[2025-02-13] MEDS: REMOVE LIDOCAINE PATCH 1 PATCH REMOVE (20:20)
--- NOTE | 2025-02-13 20:33 | PTCARENOTE ---
assumed care of pt from previous shift RN, pt sitting in chair at time of assessment. pt AAOx4, sinus rhythm w/ first degree AVB on tele HR 70s, v wire insulated. VSS, + peripheral pulses, +1 edema to bilateral lower extremities. Lungs diminished,
pox 95% on RA. occasional productive cought, +bs, tolerating PO intake, voiding spontaneously. Right IJ cordis infusing KVO. PIV intact. post op sites stable. Plan of care reviewed w the pt and questions encouraged. call coombs within reach
[2025-02-13 21:26] LABS: Glucose - Point of Care 126 mg/dl (70-99)
[2025-02-13] MEDS: MELATONIN 5 MG PO (22:02)
[2025-02-14] VITALS (10 sets, daily range): BP systolic 108–162; BP diastolic 66–88; PULSE 74; O2SAT 96; BMI 36.6
--- NOTE | 2025-02-14 00:09 | PTCARENOTE ---
VSS, NSR per tele monitor. HR 70s assessment remains unchanged
[2025-02-14 02:45] LABS: Hematocrit 34.9 % (39.0-52.0); Hemoglobin 11.5 g/dL (13.0-18.0); Mean Corp Hgb Conc. 33.0 g/dL (33.0-37.0); Mean Corpuscular Volume 89.0 fL (80.0-94.0); Platelet Count 159 10^3/uL (130-400); Red Cell Dist. Width 14.5 % (11.5-14.5)
[2025-02-14 02:55] LABS: Blood Urea Nitrogen 13 mg/dl (9-20); Calcium 8.4 mg/dl (8.4-10.2); Carbon Dioxide 28 mmol/L (22-30); Chloride 103 mmol/L (98-107); Estimated Creatinine Clearance > 125 ml/min; Glucose 125 mg/dl (70-99); Magnesium 2.2 mg/dl (1.6-2.3); Potassium 4.3 mmol/L (3.5-5.1); Sodium 135 mmol/L (135-145); eGFR > 60.00
--- NOTE | 2025-02-14 04:06 | W.PN.CT ---
Addendum entered and electronically signed by Warren Bernal MD 02/14/25 06:29:
I saw and examined the patient.
The PA's note was reviewed and I agree with the note.
Comment:
POD#3
Doing well.
Diuresis today
Continue meds
OOB/IS/ambulate
Hopefully home tomorrow
Original Note:
Today's Communication / Plan
-
-pod #3
-no significant issues overnight. Feels better since CTs came out, c/o trouble sleeping- will try prn Melatonin
-nsr 70s with PVCs overnight (K and Mg wnl)
-ambulated x2 today without problems
-Milrinone weaned off. No drips
-Lopressor restarted
-wt is up 4 lbs from preop, has rales and leg edema (had edema preop also). Consider Lasix
-current meds (ASA, Plavix, Crestor, Lopressor, Amio, Norvasc for radial, Mucinex, Protonix).
-encourage IS, OOB, ambulate
Assessment / Plan
-
- s/p CABG x 3 (in-situ ERIN to LAD, in-situ ELISE to distal RCA past crux, RA to RPLB2); ELAA (35mm AtriClip) on 02/11/[address] Bernal, pod #3
-Multivessel CAD (LM: 80% distal, LAD: 80-90% ostial, RCA: 90% mid, 70% 2nd PLB)
-NSTEMI (peak trop 7.770)
-[place]
-Newly diagnosed ischemic CM (LVEF 40%)
-HTN
-Hyperlipidemia
-T2DM (A1C 6.3, on diet only)
-Class 2 obesity (BMI 36.5)
-Hx LLE DVT-Spring 2024-treated w/Eliquis x 3 months
-B/L GSV unsuitable for conduit
-S/P Left eustachian tube repair
-Acute postop blood loss anemia
-Acute postop atelectasis/respiratory insufficiency
-Acute postop hypovolemia with subsequent hypervolemia
-Acute postop hyponatremia
-Acute postop PVCs
Discussed patient care with: Nursing and Care Team
Subjective
-
Date of Service: February 13, 2025
Objective Data
-
Lab Results
02/13/25 03:11
02/13/25 03:11
PT 17.3 Sec (11.4-14.6) H 02/11/25 13:55
INR 1.39 02/11/25 13:55
APTT 30.6 Sec (23.4-35.0) 02/11/25 13:55
Vital Signs
Vital Signs
Temp Pulse Resp BP Pulse Ox
98.7 F 77 18 128/88 95
02/13/25 20:00 02/13/25 20:00 02/13/25 20:00 02/13/25 19:41 02/13/25 20:37
CT Intake/Output/Weight
02/13/25 02/13/25 02/14/25
06:59 18:59 06:59
Intake Total 378.300 / 832.100 102.7 / 132.7 30 / 132.7
Output Total 825 / 1455 890 / 1490 600 / 1490
Balance -446.700 / -622.900 -787.3 / -1357.3 -570 / -1357.3
SaO2: 95
Physical Exam
-
General: Awake and AOx3
Cardiovascular: Regular rate & rhythm, No Murmurs and Rub
Respiratory: Rales (at bases b/l. No wheeze)
Sternum: Stable
Incision: Clean, Dry and Intact
Extremities: Edema +2 (per pt, has chronic b/l leg edema with sin changes.)
Abdomen: mildly distended, + bowel sounds, soft, nontender, no nausea, + flatus
Data Reviewed
-
Lab Results: Results Reviewed
Medications: Active Meds Reviewed
Chest X-Ray: Report Reviewed and Image Reviewed
ECG: Report Reviewed and Image Reviewed
--- NOTE | 2025-02-14 04:13 | PTCARENOTE ---
AM labs drawn and sent. pt ambulating in room. Cordis positional. VSS. Assessment unchanged
[2025-02-14] MEDS: TYLENOL 1000 MG PO ×3 (06:20→21:01)
--- NOTE | 2025-02-14 07:09 | W.PN.CD ---
Today's Communication / Plan
-
Furosemide 40 mg IV x1.
Convert metoprolol tartrate 12.5 mg BID to metoprolol succinate 25 mg daily.
Start dapagliflozin 10 mg daily. Case management consult.
UA.
Continue to encourage incentive spirometry, ambulation.
We may need to restart anticoagulation (hx of DVT, known chronic thrombus in bilateral saphenous veins) if there is no other compelling reason for his fever.
If AC restarted, we will maintain clopidogrel and discontinue aspirin.
Impression / Plan
-
Impression/Plan: 59 y/o male with HTN, HLD, NIDDM and history of provoked DVT admitted with NSTEMI; subsequent cardiac catheterization revealed multivessel coronary artery disease.
#CAD/NSTEMI
-Acute, threat to life.
-s/p CABG x3 (RUSS to LAD, KERMIT to dRCA, LRA to RPL) with Dr. Bernal on 02/11/2025.
-Continue routine postoperative care as directed by CT surgery.
-Continue metoprolol, rosuvastatin, aspirin and clopidogrel. Continue obligatory amlodipine for LRA graft.
-Incentive spirometry.
-Ambulate.
-Furosemide 40 mg IV x1 and monitor.
#Ischemic Cardiomyopathy (EF 40-45%):
-New diagnosis.
-LVEF 40 to 45%.
-Optimize GDMT:
-Diuretics: Furosemide 40 mg IV x1 today.
-Beta mercedes: Metoprolol tartrate 12.5 mg BID. Convert to metoprolol succinate 25 mg daily.
-ACEI/ARB/ARNi: None due to blood pressure. Consider lisinopril 2.5 mg daily (we can consider as an outpatient).
-MRA: None due to blood pressure.
-SGLT2i: Start dapagliflozin 10 mg daily. Case management consult.
-ICD: Not currently indicated.
#Fever
-Acute, currently afebrile.
-No outward signs of infection.
-DDx also includes atelectasis, UTI, medication (cefazolin? - last dose 02/12/2025).
-Check UA.
-Patient has known history of DVT and chronic thrombus in the bilateral saphenous veins.
-If there is no other identified source, this may be an indication for reinstatement of anticoagulation.
#DM2:
-Chronic, diet controlled.
-HgbA1C 6.3%
-Monitor with addition of dapagliflozin.
-Renal protection will also benefit from ACEI.
#HLD:
-Chronic, stable.
-Continue rosuvastatin.
-Goal LDL < 55.
#hx DVT:
-Previously on apixaban x 3 months.
-Chronic, non-occlusive thrombus identified in the bilateral great saphenous veins.
-We will consider restarting therapeutic anticoagulation.
Subjective/Interval History:
Febrile to 38.2 yesterday (38.4 on 02/12/2025). Afebrile at this time. He is receiving antipyretics ATC.
No subjective complaints.
Weight down 0.7 kg from yesterday, remains up 1.4 kg from [place].
SaO2 94% on RA.
DATA:
Chest CT, 02/04/2025:
IMPRESSION:
Ascending aorta has top of caliber with short axis diameter 4.0 cm at the level the right main pulmonary artery. There is no significant calcification of the ascending aorta.
Moderate calcification involving the inferior aortic arch in the region of the ligamentum arteriosum.
2 focal areas of linear and groundglass opacity, one within the posterior aspect of the right lower lobe and the second within the posterior aspect of the left lower lobe. Morphologically, the appearance is highly suggestive of focal areas of
scarring. It is probably prudent to obtain a follow-up CT of the chest with suggested timeframe of 6 months initially.
Fatty infiltration of the liver.
Incompletely visualized predominantly cystic mass arising in the right kidney, which appears to have peripheral calcification. This is likely a benign peripherally calcified cystic mass, but is incompletely visualized. Therefore further evaluation
is advised, to begin with a dedicated renal ultrasound.
Carotid US, 02/04/2025:
IMPRESSION:
RIGHT: No significant carotid plaque identified. Carotid velocity measurements are consistent with less than 50% internal carotid artery stenosis. Vertebral artery flow is antegrade.
LEFT: Mixed plaque is identified in the carotid bulb. Carotid velocity measurements are consistent with less than 50% internal carotid artery stenosis. Vertebral artery flow is antegrade.
LLE Duplex, 02/04/2025:
IMPRESSION:
RIGHT LOWER EXTREMITY: Vein diameters are as listed above. Chronic nonocclusive wall adherent thrombus identified in the great saphenous vein from the knee to the mid thigh. Wall thickening identified in the small saphenous vein.
LEFT LOWER EXTREMITY: Vein diameters are as listed above. Chronic nonocclusive wall adherent thrombus identified in the great saphenous vein at the knee and distal thigh segments.
Cardiac Catheterization, 02/04/2025:
CONCLUSIONS
1. Right dominant circulation with an enormous RCA that serves the right coronary and circumflex territories with a culprit 90% lesion in the mid RCA and a 70% lesion in the second posterolateral branch as well as an 80% lesion in the distal left
main coronary artery leading into an 80-90% lesion in the ostium of the LAD as well as a vestigial circumflex.
2. Mildly elevated filling pressures (LVEDP = 14 mmHg at 112.5 kg).
TTE, 02/04/2025:
SUMMARY
1. Left ventricle is mildly dilated with mildly reduced systolic function. LVEF 40-45%.
2. Hypokinesis of the mid to apical anterolateral/inferolateral wall, basal to apical inferior wall, and apex.
3. No significant valvular disease.
4. Ectatic aortic root (3.9 cm).
5. No prior study available for comparison.
CT Surgery, 02/11/2025:
PROCEDURES:
1. Median sternotomy
2. Takedown of ERIN (narrow pedicle/partial skeletonization)
3. Takedown of ELISE (skeletonized)
4. Endoscopic harvest/prep of L RA
5. CABG x 3 (in-situ ERIN to LAD, in-situ ELISE to distal RCA past
crux, RA to RPLB2)
6. ELAA (35mm AtriClip)
Physical Exam
Vital Signs/Labs
Vital Signs
Temp Pulse Resp BP Pulse Ox
37.0 C 71 16 108/66 94
02/14/25 04:00 02/14/25 04:12 02/14/25 04:00 02/14/25 04:12 02/14/25 04:00
02/12/25 02/13/25 02/14/25
11:59 11:59 11:59
Actual Weight 112 kg 112.9 kg 112.2 kg
02/14/25 02:26
02/14/25 02:26
PT 17.3 Sec (11.4-14.6) H 02/11/25 13:55
INR 1.39 02/11/25 13:55
APTT 30.6 Sec (23.4-35.0) 02/11/25 13:55
Magnesium 2.2 mg/dl (1.6-2.3) 02/14/25 02:26
Triglycerides 416 mg/dl (10-149) H 02/02/25 03:45
LDL Cholesterol, Calc mg/dl 02/02/25 03:45
VLDL Cholesterol, Calc mg/dl (0-30) 02/02/25 03:45
HDL Cholesterol 37 mg/dl 02/02/25 03:45
02/02/25
03:45
Aeh-C-Eyydosajvjs Pept 1290
Physical Exam
Constitutional: No acute distress and Comfortable
EENT: Anicteric and Moist mucous membranes
Cardiovascular: Rhythm & rate is regular, Pedal edema is absent, JVD pressure is normal, S1S2 is normal and Murmur/rub/gallop absent
Respiratory: Respiratory effort normal, Lungs clear to auscul., Wheeze Absent, Crackles Absent and Rhonchi Absent
GI: Soft, Distention absent, Flat, Non tender and Normal bowel sounds
Neuro/Psych: AO x 3
Data Reviewed
-
Date of Service: February 14, 2025
Medical Decision Making: Reviewed Test Results, Independent Historian Assessment and Test Interpretation
EKG: Tracing Personally Visualized and interpreted and Report Reviewed by me
Echo: Report Reviewed by me
X-Ray/CT/US/MRI/NUC/PET: Image Personally Visualized and interpreted and Report Reviewed by me
Medical Tests (PFT, Pathology etc): Image Personally Visualized and interpreted and Report Reviewed by me
Labs: Labs Reviewed by me
Old Records: Reviewed
[2025-02-14] MEDS: NOVOLOG FLEXPEN-MODERATE RESISTANCE SC ×3 (07:53→18:08)
[2025-02-14 07:54] LABS: Glucose - Point of Care 156 mg/dl (70-99)
[2025-02-14] MEDS: MAGNESIUM OXIDE 400 MG PO ×2 (08:24→21:01)
[2025-02-14] MEDS: LOW STRENGTH ASPIRIN 81 MG PO (08:24)
[2025-02-14] MEDS: NEURONTIN 100 MG PO ×3 (08:24→21:01)
[2025-02-14] MEDS: LASIX 40 MG IV (08:24)
[2025-02-14] MEDS: PROTONIX 40 MG PO (08:24)
[2025-02-14] MEDS: NORVASC 2.5 MG PO (08:24)
[2025-02-14] MEDS: MUCINEX 600 MG PO ×2 (08:24→21:01)
[2025-02-14] MEDS: PLAVIX 75 MG PO (08:24)
[2025-02-14] MEDS: SENOKOT-S 1 TABLET PO (08:24)
[2025-02-14] MEDS: PACERONE 200 MG PO ×3 (08:24→21:02)
[2025-02-14] MEDS: LOPRESSOR 12.5 MG PO ×2 (08:24→21:05)
[2025-02-14] MEDS: LIDOCAINE 4% PATCH TOPICAL (08:25)
[2025-02-14] MEDS: BACTROBAN 2% OINTMENT 1 APPLIC NASAL ×2 (08:25→21:00)
--- NOTE | 2025-02-14 08:43 | PTCARENOTE ---
assumed care of pt from previous shift RN, sinus rhythm on tele w 1st degree HB on tele, VSS. Insulated V wire maintained. Fine crackles noted to right base and 1/2 up on left. +bs, tolerating PO intake. Voids spontaneously. Right IJ cordis
maintained, PIV not flushed, removed. Plan of care reviewed w the pt and questions encouraged.
[2025-02-14] MEDS: LOPRESSOR PO (09:13)
[2025-02-14] MEDS: FARXIGA 10 MG PO (09:15)
[2025-02-14] MEDS: NOVOLOG FLEXPEN-MODERATE RESISTANCE 1 UNITS SC (09:15)
[2025-02-14 10:30] LABS: Urine Character Clear (Clear)
--- NOTE | 2025-02-14 11:16 | PTCARENOTE ---
Cordis removed without incident, New PIV placed.
[2025-02-14] MEDS: NSS IV (11:17)
--- NOTE | 2025-02-14 12:09 | CM ---
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 i put the sachin zero copay card in [employer] ([employer]) folder.
[2025-02-14 12:22] LABS: Glucose - Point of Care 96 mg/dl (70-99)
--- NOTE | 2025-02-14 16:10 | PTCARENOTE ---
vss. pt ambulating independently without complaint.
[2025-02-14] MEDS: CRESTOR 20 MG PO (16:14)
[2025-02-14 18:00] LABS: Glucose - Point of Care 108 mg/dl (70-99)
--- NOTE | 2025-02-14 20:17 | PTCARENOTE ---
Addendum entered by Bianka Sorenson RN 02/15/25 00:39:
VS captured from previous shift
Original Note:
assumed care of pt from previous shift RN, pt sitting in chair at time of assessment. Pt AAOx4. sinus rhythm on tele w 1st degree HB on tele, VSS. Insulated V wire maintained. pox 95% on RA. Fine crackles noted to right base and 1/2 up on left. +bs,
tolerating PO intake. Voids spontaneously. PIV intact. all surgical sites intact. Plan of care reviewed w the pt and questions encouraged. call coombs within reach
[2025-02-14] MEDS: SENOKOT-S PO (21:02)
[2025-02-14] MEDS: REMOVE LIDOCAINE PATCH REMOVE (21:02)
[2025-02-14 22:01] LABS: Glucose - Point of Care 111 mg/dl (70-99)
[2025-02-14] MEDS: MELATONIN 5 MG PO (22:02)
[2025-02-15] VITALS (8 sets, daily range): BP systolic 105–137; BP diastolic 66–80; PULSE 67; BMI 36.0
--- NOTE | 2025-02-15 00:19 | PTCARENOTE ---
pt resting comfortably in bed. no c/o pain. VSS. NSR per tele monitor assessment remains unchanged
--- NOTE | 2025-02-15 00:39 | W.PN.CT ---
Today's Communication / Plan
-
-no issues overnight
-nsr 70s with PVCs overnight, occasional trigeminy with exertion
-Lopressor restarted, tolerated
-s/p diuresis, UOP 1125/3125 cc out in 12/24 hrs
-current meds (ASA, Plavix, Crestor, Lopressor, Amio, Norvasc for radial, Mucinex, Protonix).
-encourage IS, OOB, ambulate
-dispo planning
Assessment / Plan
-
- s/p CABG x 3 (in-situ ERIN to LAD, in-situ ELISE to distal RCA past crux, RA to RPLB2); ELAA (35mm AtriClip) on 02/11/[address] Bernal, pod #4
-Multivessel CAD (LM: 80% distal, LAD: 80-90% ostial, RCA: 90% mid, 70% 2nd PLB)
-NSTEMI (peak trop 7.770)
-[place]
-Newly diagnosed ischemic CM (LVEF 40%)
-HTN
-Hyperlipidemia
-T2DM (A1C 6.3, on diet only)
-Class 2 obesity (BMI 36.5)
-Hx LLE DVT-Spring 2024-treated w/Eliquis x 3 months
-B/L GSV unsuitable for conduit
-S/P Left eustachian tube repair
-Acute postop blood loss anemia
-Acute postop atelectasis/respiratory insufficiency
-Acute postop hypovolemia with subsequent hypervolemia
-Acute postop hyponatremia
-Acute postop PVCs
Subjective
-
Date of Service: February 15, 2025
Objective Data
-
PT 17.3 Sec (11.4-14.6) H 02/11/25 13:55
INR 1.39 02/11/25 13:55
APTT 30.6 Sec (23.4-35.0) 02/11/25 13:55
Vital Signs
Vital Signs
Temp Pulse Resp BP Pulse Ox
98.7 F 64 16 114/77 94
02/15/25 00:14 02/15/25 00:15 02/15/25 00:14 02/15/25 00:15 02/15/25 00:35
CT Intake/Output/Weight
02/14/25 02/14/25 02/15/25
06:59 18:59 06:59
Intake Total 70 / 172.7 120 / 120
Output Total 115 / 0 1999 / 2274 / 2274
Balance -1080 / -1867.3 -1880 / -2155 -275 / -2154
SaO2: 94
Physical Exam
-
General: Awake and Oriented
Cardiovascular: Regular rate & rhythm and No Murmurs
Respiratory: Clear and Equal
Sternum: Stable
Incision: Clean and Dry
Extremities: No Erythema
Data Reviewed
-
Lab Results: Results Reviewed
Medications: Active Meds Reviewed
Chest X-Ray: Report Reviewed
ECG: Report Reviewed
[2025-02-15 04:12] LABS: Hematocrit 33.2 % (39.0-52.0); Hemoglobin 11.2 g/dL (13.0-18.0); Mean Corp Hgb Conc. 33.7 g/dL (33.0-37.0); Mean Corpuscular Volume 87.4 fL (80.0-94.0); Platelet Count 172 10^3/uL (130-400); Red Cell Dist. Width 14.5 % (11.5-14.5)
--- NOTE | 2025-02-15 04:15 | PTCARENOTE ---
AM labs obtained, VSS, NSR per tele monitor HR 60s
[2025-02-15 04:37] LABS: Blood Urea Nitrogen 15 mg/dl (9-20); Calcium 8.4 mg/dl (8.4-10.2); Carbon Dioxide 29 mmol/L (22-30); Chloride 103 mmol/L (98-107); Estimated Creatinine Clearance 120 ml/min; Glucose 116 mg/dl (70-99); Magnesium 2.3 mg/dl (1.6-2.3); Potassium 4.1 mmol/L (3.5-5.1); Sodium 135 mmol/L (135-145); eGFR > 60.00
[2025-02-15] MEDS: TYLENOL 1000 MG PO (05:49)
--- NOTE | 2025-02-15 08:00 | PTCARENOTE ---
Assumed care of patient from film processing shift supervisor RN, AAO x 3 Sitting up in chair. SR 1 degree AVB on monitor. Epicardial wire insulated. Room air 95%, IS to 1500. Abdomen soft and non tender, pt reports BM this am. Voiding independently. Plus 1 lower
extremity edema appreciated. Pulses palpable. Lt radial site c,d,i. Plan for day discussed.
[2025-02-15] MEDS: PLAVIX 75 MG PO (08:21)
[2025-02-15] MEDS: KCL 20 MEQ PO (08:21)
[2025-02-15] MEDS: NORVASC 2.5 MG PO (08:22)
[2025-02-15] MEDS: MUCINEX 600 MG PO (08:22)
[2025-02-15] MEDS: PROTONIX 40 MG PO (08:22)
[2025-02-15] MEDS: TOPROL XL 25 MG PO (08:22)
[2025-02-15] MEDS: PACERONE 200 MG PO ×2 (08:22→15:52)
[2025-02-15] MEDS: LOW STRENGTH ASPIRIN 81 MG PO (08:22)
[2025-02-15] MEDS: SENOKOT-S 1 TABLET PO (08:22)
[2025-02-15] MEDS: MAGNESIUM OXIDE 400 MG PO (08:22)
[2025-02-15] MEDS: NEURONTIN 100 MG PO ×2 (08:22→15:52)
[2025-02-15] MEDS: LASIX 40 MG PO (08:22)
[2025-02-15] MEDS: FARXIGA 10 MG PO (08:22)
[2025-02-15] MEDS: BACTROBAN 2% OINTMENT 1 APPLIC NASAL (08:23)
[2025-02-15] MEDS: LIDOCAINE 4% PATCH TOPICAL (08:23)
[2025-02-15] MEDS: NOVOLOG FLEXPEN-MODERATE RESISTANCE SC ×2 (08:23→12:43)
--- NOTE | 2025-02-15 10:42 | W.PN.CD ---
Addendum entered and electronically signed by Damian Flores MD 02/20/25 13:59:
Note update/correction:
- Unable to place the patient on an CRISTHIAN inhibitor/ARB secondary to blood pressure limitations (low blood pressure).
- The patient needs to remain on amlodipine from a CT surgical standpoint as he had a left radial artery harvest and these patients should be discharged on a calcium channel mercedes for at least 3 months after surgery to reduce the risk of vessel
spasm/closure.
Original Note:
Today's Communication / Plan
-
-Clinically stable; remains in sinus rhythm on telemetry.
-Continue metoprolol succinate, rosuvastatin, aspirin, and clopidogrel.
-Continue Farxiga 10 mg daily.
-Will change from amlodipine (no benefit in CHF) to lisinopril 2.5 mg daily.
-Discharge planning today vs. tomorrow; outpatient follow-up with Cardiology.
Impression / Plan
-
Impression/Plan: 59 y/o male with HTN, HLD, NIDDM and history of provoked DVT admitted with NSTEMI; subsequent cardiac catheterization revealed multivessel coronary artery disease.
#CAD/NSTEMI
-s/p CABG x3 (RUSS to LAD, KERMIT to dRCA, LRA to RPL) with Dr. Bernal on 02/11/2025.
-Clinically stable; remains in sinus rhythm on telemetry.
-Continue metoprolol succinate, rosuvastatin, aspirin, and clopidogrel.
-Discharge planning today vs. tomorrow; outpatient follow-up with Cardiology.
#Ischemic Cardiomyopathy (EF 40-45%):
-Stable/compensated on examination.
-Continue metoprolol succinate 25 mg daily.
-Continue Farxiga 10 mg daily.
-Will change from amlodipine (no benefit in CHF) to lisinopril 2.5 mg daily.
-Further GDMT has been limited by blood pressure.
#DM2:
-Chronic, diet controlled.
-HgbA1C 6.3%
-Starting CRISTHIAN inhibitor as above.
#HLD:
-Chronic, stable.
-Continue rosuvastatin.
-Goal LDL < 55.
#hx DVT:
-Previously on apixaban x 3 months.
-Chronic, non-occlusive thrombus identified in the bilateral great saphenous veins.
-We will consider restarting therapeutic anticoagulation.
Subjective/Interval History:
No major events overnight. No cardiac complaints this a.m.
DATA:
Chest CT, 02/04/2025:
IMPRESSION:
Ascending aorta has top of caliber with short axis diameter 4.0 cm at the level the right main pulmonary artery. There is no significant calcification of the ascending aorta.
Moderate calcification involving the inferior aortic arch in the region of the ligamentum arteriosum.
2 focal areas of linear and groundglass opacity, one within the posterior aspect of the right lower lobe and the second within the posterior aspect of the left lower lobe. Morphologically, the appearance is highly suggestive of focal areas of
scarring. It is probably prudent to obtain a follow-up CT of the chest with suggested timeframe of 6 months initially.
Fatty infiltration of the liver.
Incompletely visualized predominantly cystic mass arising in the right kidney, which appears to have peripheral calcification. This is likely a benign peripherally calcified cystic mass, but is incompletely visualized. Therefore further evaluation
is advised, to begin with a dedicated renal ultrasound.
Carotid US, 02/04/2025:
IMPRESSION:
RIGHT: No significant carotid plaque identified. Carotid velocity measurements are consistent with less than 50% internal carotid artery stenosis. Vertebral artery flow is antegrade.
LEFT: Mixed plaque is identified in the carotid bulb. Carotid velocity measurements are consistent with less than 50% internal carotid artery stenosis. Vertebral artery flow is antegrade.
LLE Duplex, 02/04/2025:
IMPRESSION:
RIGHT LOWER EXTREMITY: Vein diameters are as listed above. Chronic nonocclusive wall adherent thrombus identified in the great saphenous vein from the knee to the mid thigh. Wall thickening identified in the small saphenous vein.
LEFT LOWER EXTREMITY: Vein diameters are as listed above. Chronic nonocclusive wall adherent thrombus identified in the great saphenous vein at the knee and distal thigh segments.
Cardiac Catheterization, 02/04/2025:
CONCLUSIONS
1. Right dominant circulation with an enormous RCA that serves the right coronary and circumflex territories with a culprit 90% lesion in the mid RCA and a 70% lesion in the second posterolateral branch as well as an 80% lesion in the distal left
main coronary artery leading into an 80-90% lesion in the ostium of the LAD as well as a vestigial circumflex.
2. Mildly elevated filling pressures (LVEDP = 14 mmHg at 112.5 kg).
TTE, 02/04/2025:
SUMMARY
1. Left ventricle is mildly dilated with mildly reduced systolic function. LVEF 40-45%.
2. Hypokinesis of the mid to apical anterolateral/inferolateral wall, basal to apical inferior wall, and apex.
3. No significant valvular disease.
4. Ectatic aortic root (3.9 cm).
5. No prior study available for comparison.
CT Surgery, 02/11/2025:
PROCEDURES:
1. Median sternotomy
2. Takedown of ERIN (narrow pedicle/partial skeletonization)
3. Takedown of ELISE (skeletonized)
4. Endoscopic harvest/prep of L RA
5. CABG x 3 (in-situ ERIN to LAD, in-situ ELISE to distal RCA past
crux, RA to RPLB2)
6. ELAA (35mm AtriClip)
Physical Exam
Vital Signs/Labs
Vital Signs
Temp Pulse Resp BP Pulse Ox
98.7 F 70 16 108/73 95
02/15/25 08:00 02/15/25 08:00 02/15/25 08:00 02/15/25 07:41 02/15/25 09:12
02/14/25 02/15/25 02/16/25
06:59 06:59 06:59
Actual Weight 112.2 kg 110.5 kg
02/15/25 03:55
02/15/25 03:55
PT 17.3 Sec (11.4-14.6) H 02/11/25 13:55
INR 1.39 02/11/25 13:55
APTT 30.6 Sec (23.4-35.0) 02/11/25 13:55
Magnesium 2.3 mg/dl (1.6-2.3) 02/15/25 03:55
Triglycerides 416 mg/dl (10-149) H 02/02/25 03:45
LDL Cholesterol, Calc mg/dl 02/02/25 03:45
VLDL Cholesterol, Calc mg/dl (0-30) 02/02/25 03:45
HDL Cholesterol 37 mg/dl 02/02/25 03:45
02/02/25
03:45
Vnh-A-Tlxdjebbboo Pept 1290
Physical Exam
Constitutional: No acute distress and Comfortable
EENT: Anicteric
Cardiovascular: Rhythm & rate is regular, Pedal edema is absent, Systolic murmur absent and S1S2 is normal
Respiratory: Respiratory effort normal and Lungs clear to auscul.
GI: Soft and Non tender
Neuro/Psych: AO x 3
Other: Skin (Warm, dry, intact)
Data Reviewed
-
Date of Service: February 15, 2025
EKG: Tracing Personally Visualized and interpreted (Telemetry: Sinus rhythm, occasional PVCs)
Labs: Labs Reviewed by me
[2025-02-15] MEDS: NSS IV (11:47)
[2025-02-15 11:51] LABS: Glucose - Point of Care 109 mg/dl (70-99)
--- NOTE | 2025-02-15 11:53 | W.[place]-PDMP ---
[place]-PD[place]
-
Checked the [place]- Prescription Drug Monitoring Program website, no red flags identified; safe to proceed with prescription.
--- NOTE | 2025-02-15 11:53 | W.DCSUMMARY ---
Discharge Summary
Discharge Data
Date of Admission: 02/02/25
Date of Discharge: 02/15/25
Total time spent discharging patient (in min): 45
-
Pending Results: No
Hospital Course
Primary care physician:
Dr. Jos Caban MD.
Outpatient consulting marine engineer:
Dr. Tee Quiroga DO.
Inpatient consultants:
Inpatient [facility]
Procedures:
1. Coronary artery bypass grafting x 3, RUSS�LAD, in situ ELISE to distal RCA, left radial artery 2R PLB 2, and exclusion of left atrial appendage with number [address] Warren Bernal MD on 02/11/25.
Primary Diagnosis:
1. Multivessel coronary artery disease
2. Class II obesity (BMI 36.0)
3. Hyperlipidemia
4. Diabetes mellitus type 2 controlled only by diet, hemoglobin A1c 6.3
5. History of DVT (08/2024 Xarelto x 3 months)
6. Acute NSTEMI
7. Newly diagnosed ischemic cardiomyopathy (LVEF 40%)
8. Nonsustained ventricular tachycardia
9. Acute postoperative blood loss anemia
10. Acute postoperative atelectasis/respiratory insufficiency
11. Acute postoperative hypovolemia with subsequent hypervolemia
12. Acute postop hyponatremia
13. Acute postop premature ventricular contractions
Secondary Diagnoses:
1. Multivessel coronary artery disease
2. Class II obesity (BMI 36.0)
3. Hyperlipidemia
4. Diabetes mellitus type 2 controlled only by diet, hemoglobin A1c 6.3
5. History of DVT (08/2024 Xarelto x 3 months)
6. Acute NSTEMI
7. Newly diagnosed ischemic cardiomyopathy (LVEF 40%)
8. Nonsustained ventricular tachycardia
9. Acute postoperative blood loss anemia
10. Acute postoperative atelectasis/respiratory insufficiency
11. Acute postoperative hypovolemia with subsequent hypervolemia
12. Acute postop hyponatremia
13. Acute postop premature ventricular contractions
HPI:
Patient is a 59-year-old male who presented to [facility]'s emergency department on 02/02/2025 with chest pain. Patient was ruled in for a non-ST elevated myocardial infarction and admitted for further workup. Cardiology
was consulted and subsequent cardiac workup revealed multivessel coronary artery disease via cardiac catheterization. CT surgery was consulted for coronary artery revascularization evaluation. He was maintained on an IV heparin and nitroglycerin
drip prior to surgery.
Hospital course:
Patient was seen by the cardiothoracic surgery service and deemed an appropriate candidate. He presented to the operating room on the date described above for the procedure described above. Patient tolerated the procedure well. He remained
intubated. He was transported to the cardiovascular intensive care unit oriented when his postoperative recovery. On postoperative day #0 the patient was successfully extubated without difficulty at 1615. He received 1 dose of Ofirmev and
remained on low-dose Levophed at 1. He was later started on milrinone 0.375 for inotropic support.
On postoperative day #1 milrinone was weaned to 0.125 and continued. Norvasc was started for the patient's radial artery harvest. Levo and Cardene were weaned off. Patient's beta-blockade was held secondary to milrinone therapy. A bolus of IV
amiodarone was given for brief bigeminy/PVCs. The patient's A-line was positional and discontinued. Hong catheter was continued secondary to accurate I's and O's on inotropic support.
On postoperative day #2 milrinone was weaned to off. Hong catheter was removed. Beta-mercedes was resumed at low-dose and the patient was making adequate urine. Insulin drip was transitioned to off and he was transferred to telemetry.
Postoperative day #3 he was diuresed with Lasix 40 mg IV x 1 and his right Cordis was removed. Patient's beta-mercedes was transitioned to Toprol-XL 25 mg daily by cardiology. Patient continued Plavix therapy for arterial grafting.
On postoperative day #4 patient underwent a two-view chest x-ray which showed no surgical concerns. He was diuresed with Lasix 40 mg p.o. No new changes were made. Patient was seen by attending physician on rounds, and he is medically cleared to
be discharged to home on postoperative day #4. He was discharged home with a 7-day course of Lasix secondary to previous ischemic cardiomyopathy with a EF 30 to 35%. Status post revascularization EF improved to 40 to 45%.
Home medication changes:
Crestor dose increased to 20mg daily s/p CABG
See below
Discharge Plan
-
Patient Disposition: Home (Routine Discharge)
Discharge Diagnosis/Procedures: CABG X 3 WITH B/L MARILU & RADIAL, LEFT ATRIAL APPENDAGE CLIP (02/11/25)
Condition: Fair
Diet: Low Cholesterol, Low Sodium and Diabetic, Carb Controlled
Activity: No strenuous activity
Driving Restrictions: Not until seen by your Dr
Bathing Restrictions: OK to Shower
Other Services: Cardiac Rehab
Specialty Instructions: Weigh Daily- Call MD for wt gain/loss 3 lbs overnight/5 lbs in 1 week
Activity Restrictions/Additional Instructions:
ACTIVITY:
-No strenuous activity: no heavy lifting, pushing, pulling anything over 15 pounds for one month
-continue to use stairs as tolerated
DRIVING RESTRICTIONS:
-No driving for one month or until approved by your surgeon
WOUND CARE:
-Shower daily. Use soap & water.
-No lotions, creams or powders on incision area.
DIET:
-continue a low fat/low cholesterol diet.
-IF you are diabetic, continue carb controlled diet.
CARDIAC REHAB:
-Please make appointment to start in 5-6 weeks with your local hospital program. (See Cardiac Rehabilitation Discharge Booklet).
SPECIALTY INSTRUCTIONS:
-Weigh yourself daily. Call your physician for any weight gain/loss of 3 lbs overnight or 5 lbs in one week.
-REPORT any clicking noise or uneven appearance of your sternum to your surgeon immediately.
-If you smoke, you are instructed to quit. The [place] smoking hotline phone number is [phone]
Referrals:
[facility] [Outside] - 03/19/25 8:30 am
Referral Note: Cardiac Rehab Orientation appointment is on 03/19/2025 at 8:30 AM.
The Cardiac Rehab gym is located on the first floor of the [facility].
Radha Cooper NP [Specified Professional Personl, Cardiology] - 03/20/25 11:40 am
Fidel Jerez MD [Active, Pulmonary Medicine] - in one to two months
Jos Caban CRNP [Family Provider, Internal Medicine]
Warren Bernal MD [Active, Cardiac Surgery] - 03/19/25 1:30 pm
Additional Discharge Medication Instructions: Crestor dose increased to 20mg daily s/p CABG
Prescriptions:
New
rosuvastatin 20 mg Tablet
20 mg PO QPM Qty: 30 1RF
dapagliflozin propanediol 10 mg Tablet
10 mg PO DAILY Qty: 30 0RF
Rx Instructions:
Please obtain refills from PCP/Cardiology
aspirin 81 mg Tablet,Chewable
81 mg PO DAILY Qty: 0 0RF
Rx Instructions:
Please purchase over the counter
amlodipine 2.5 mg Tablet
2.5 mg PO DAILY Qty: 30 1RF
clopidogrel 75 mg Tablet
75 mg PO DAILY Qty: 30 1RF
pantoprazole 40 mg Tablet,Delayed Release (Dr/Ec)
40 mg PO DAILY Qty: 30 0RF
Rx Instructions:
Please obtain refills from PCP/Cardiology. GI prophylaxis w/ Plavix
oxycodone 5 mg Tablet
5 mg PO .Q6H PRN PRN (Reason: moderate pain) Qty: 28 0RF
Rx Instructions:
Ongoing pain control Attending Dr. Warren Bernal
sennosides-docusate sodium 8.6-50 mg Tablet
1 tab PO Q12 Qty: 40 0RF
Rx Instructions:
Continue while taking narcotic to avoid constipation. Stop for loose stools/diarrhea
acetaminophen 325 mg Tablet
650 mg PO Q4HPRN PRN (Reason: mild pain,headache,temp >101F ) Qty: 0 0RF
Rx Instructions:
Please purchase over the counter
metoprolol succinate 25 mg Tablet Extended Release 24 Hr
25 mg PO DAILY Qty: 30 1RF
furosemide [Lasix] 40 mg tablet
40 mg PO DAILY Qty: 7 0RF
Rx Instructions:
Take for 7 days, and then stop.
potassium chloride [Klor-Con M20] 20 mEq tablet,ER particles/crystals
20 meq PO DAILY Qty: 7 0RF
Rx Instructions:
take for 7 days with Lasix and then stop.
Continued
methocarbamol 500 mg Tablet
500 mg PO HS
Discontinued
rosuvastatin 10 mg Tablet
10 mg PO DAILY
Discharge Orders:
Discharge Patient (As Directed); Ordered 02/15/25
Ordered By: Ashlee Robb
Care Plan Goals
Care Plan Goals:
Problem: Readiness for enhanced knowledge related to diagnosis and treatment plan
Goal: Understand your diagnosis and treatment plan needs, including medications if applicable.
Instructions: Know your diagnosis, underlying causes and treatment plan options, including medications if applicable. Consult with your health care team to learn about your diagnosis and treatment plan, including medications if applicable.
Discharge Date and Time
Print Language: KAZAKH
--- NOTE | 2025-02-15 12:00 | PTCARENOTE ---
AMbulating at denise in room w/o complaint. Denies pain. VSS. Assessment unchanged from prior.
[2025-02-15] MEDS: TYLENOL PO (13:40)
--- NOTE | 2025-02-15 15:40 | PTCARENOTE ---
Epicardial wire Cut and retracted by CT PA, All dressings removed. Telemetry and PIV removed. Assisted into shower, using shower chair pt took CHG shower. Denies issue with showering. Able to dress self .
[2025-02-15] MEDS: PREVNAR 20 0.5 ML IM (15:47)
[2025-02-15] MEDS: CRESTOR 20 MG PO (15:52)
--- NOTE | 2025-02-15 16:00 | PTCARENOTE ---
Discharge instructions reviewed with patient and brother, questions answered. States understanding. Wheeled to car by RN.
--- NOTE | 2025-02-15 16:43 | CM ---
pt going to go home to his brothers house- [id number] [place] [id number]- [facility] to do F/U visit there.
--- NOTE | 2025-02-19 13:49 | PN.CDI ---
CDI
- -
CDI:
Physician Documentation Request
Admit Date: 02/02/25 05:[address] Surgery,
Please review the following and provide your response in the progress notes.
Clinical Indicators:
The diagnosis of acute HFmrEF was documented on 02/10 Hospitalist note but is not consistently noted in subsequent documentation.
- Patient admit with NSTEMI
- 02/10 PN 'Mildly elevated left ventricular end-diastolic pressure suggestive of acute CHmrEF'
- 02/02 proBNP 1290
- 02/02-02/05 40mg IV Lasix given daily
- 02/04 Echo 'EF 40-45%...Stage I diastolic dysfunction suggestive of abnormal relaxation'
- 02/15 CT Surgery 'Newly diagnosed ischemic CM (LVEF 40%)'
- Milrinone post surgery
Please clarify the following:
____ - Acute HFmrEF was present on admission
____ - Acute HFmrEF was ruled out
____ - Other
Use of terms such as suspected, likely, concern for, or probable (associated with a specific diagnosis that is being evaluated, monitored, or treated as if it exists) are acceptable and can be coded in the inpatient setting, when documented at the
time of discharge.
Thank you,
Rodney Logan RN
CDI Specialist
Please use your independent medical judgment in providing your response.
== END 2025-02-15 17:00 | disposition home or self-care (01) | DRG 234 ==
LOC: CVICU 05:13
PROVIDERS: Anesthesiology; Internal Medicine; Internal Medicine Cardiovascular Disease; Nurse Practitioner; Physician Assistant Medical; Thoracic Surgery (Cardiothoracic Vascular Surgery); ADMITTING PHYSICIAN Internal Medicine; ATTENDING PHYSICIAN Thoracic Surgery (Cardiothoracic Vascular Surgery); CONSULT PHYSICIAN Internal Medicine; EMERGENCY PHYSICIAN Emergency Medicine; FAMILY PHYSICIAN Nurse Practitioner Adult Health
PROC: B2111ZZ Fluoroscopy of Multiple Coronary Arteries using Low Osmolar Contrast (ICD-10-PCS; 2025-02-04)
PROC: 4A023N7 Measurement of Cardiac Sampling and Pressure, Left Heart, Percutaneous Approach (ICD-10-PCS; 2025-02-04)
PROC: 03BC4ZZ Excision of Left Radial Artery, Percutaneous Endoscopic Approach (ICD-10-PCS; 2025-02-11)
PROC: 02110ZC Bypass Coronary Artery, Two Arteries from Thoracic Artery, Open Approach (ICD-10-PCS; 2025-02-11)
PROC: 5A1221Z Performance of Cardiac Output, Continuous (ICD-10-PCS; 2025-02-11)
PROC: 02L70CK Occlusion of Left Atrial Appendage with Extraluminal Device, Open Approach (ICD-10-PCS; 2025-02-11)
PROC: 02100AW Bypass Coronary Artery, One Artery from Aorta with Autologous Arterial Tissue, Open Approach (ICD-10-PCS; 2025-02-11)
PROC: B24BZZ4 Ultrasonography of Heart with Aorta, Transesophageal (ICD-10-PCS; 2025-02-11)
PROC: 3E0234Z Introduction of Serum, Toxoid and Vaccine into Muscle, Percutaneous Approach (ICD-10-PCS; 2025-02-15)
DX: I21.4 Non-ST elevation (NSTEMI) myocardial infarction (principal); I47.20 Ventricular tachycardia, unspecified; D62 Acute posthemorrhagic anemia; J98.11 Atelectasis; E87.1 Hypo-osmolality and hyponatremia; I25.10 Atherosclerotic heart disease of native coronary artery without angina pectoris; I25.5 Ischemic cardiomyopathy; E11.9 Type 2 diabetes mellitus without complications; E78.00 Pure hypercholesterolemia, unspecified; I11.0 Hypertensive heart disease with heart failure; E66.812 Obesity, class 2; R06.89 Other abnormalities of breathing; E86.1 Hypovolemia; I49.3 Ventricular premature depolarization; I50.9 Heart failure, unspecified; Z23 Encounter for immunization; Z68.36 Body mass index [BMI] 36.0-36.9, adult; Z79.899 Other long term (current) drug therapy; Z82.49 Family history of ischemic heart disease and other diseases of the circulatory system; Z86.718 Personal history of other venous thrombosis and embolism
CPT/HCPCS: 71045; 71046; 71250; 80048; 80053; 80061; 81003; 81015; 82330; 82565; 82805; 82810; 82947; 82962; 83036; 83721; 83735; 83880; 84132; 84302; 84484; 84520; 85014; 85018; 85025; 85027; 85049; 85379; 85610; 85730; 86850; 86900; 86901; 86920; 90677; 93005; 93306; 93312; 93320; 93325; 93458; 93880; 93923; 93930; 93970; 94002; 96365; 96366; 99152; 99153; 99285; C1713; C1894; G0009; J2260; Q9967

== ENCOUNTER 2025-03-19 14:20 | Inpatient (IN) | payer BC, SELFPAY ==
[2025-03-19] VITALS (11 sets, daily range): BP systolic 99–141; BP diastolic 70–95; BMI 35.5; BMI 34.4
--- NOTE | 2025-03-19 11:42 | ED.GENMED ---
History of Present Illness
<Zachery Haines PA-C - Last Filed: 03/19/25 18:36>
General
Chief Complaint: Cardiac Symptoms
Time Seen by Provider: 03/19/25 11:08
History of Present Illness
History of Present Illness:
62-year-old male with history of multivessel coronary disease status post CABG x 3 and SIRIA clipping on 02/[address]. Bernal ischemic cardiomyopathy, hypertension, hyperlipidemia, and diet-controlled diabetes presents to the emergency
department due to abnormal cardiac rhythm. Went to cardiac rehab today where he was noted to be in a rate controlled atrial flutter. He denies chest pain, shortness of breath, fevers, or chills. Has been compliant with all of his medications
postoperatively however he notes that he ran out of his clopidogrel 3 days ago and has not been able to get a refill.
Past History
<Zachery Haines PA-C - Last Filed: 03/19/25 18:36>
Past History
ED Past Medical History: Hypercholesterolemia and Other (DVT)
Social History
Tobacco: Non-smoker
Alcohol: None
Personal: Single
Living: with family (lives with brother)
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
Review of Systems
<Zachery Haines PA-C - Last Filed: 03/19/25 18:36>
Review of Systems
Allergies reviewed?: Yes
All Other Systems: ROS reviewed and negative except as documented in HPI and ROS
Phy Exam
<Zachery Haines PA-C - Last Filed: 03/19/25 18:36>
Physical Exam
Physical Exam:
GEN: Well appearing, NAD, WDWN
HEENT: Oral mucosa moist, no scleral icterus
Cardiac: Regular rhythm, controlled rate, no murmur
Lung: No respiratory distress, no tachypnea, lungs CTAB
MSK: No gross deformity or injuries
Skin: Good color, no pallor or jaundice, no rashes
Neuro: AO x3, moves all extremities freely
Psych: Calm, cooperative
Course
<Zachery Haines PA-C - Last Filed: 03/19/25 18:36>
Orders/Labs/Results
Orders:
Orders
03/19/25 Breakfast
NPO
Allow oral meds: Yes
Allow clear liquids: No
NPO with Ice Chips: No
03/19/25 Lunch
Cholesterol Lowering
At Your Request: Full Participation
03/19/25 10:22
ECG [Electrocardiogram (*1)] Urgent
Reason for Study: Atrial Flutter
EKG- Treatment ONCE
03/19/25 11:55
Complete Blood Count/No Diff Urgent
Comprehensive Metabolic Panel Urgent
Magnesium Urgent
03/19/25 14:01
Admit/Transfer Patient As Directed
Co-Sign Provider:
Level of Care: Inpatient admission
Assign to:: IVU
Physician / Group: CBC
Diagnosis: Atrial flutter
Reason for Hospitalization: Atrial flutter
Expected length of stay greater than two midnights?: Yes
ELOS- Estimated Length of Stay in days: 3
I certify the patient meets the requirements for IP care: Yes
Code Status As Directed
Resuscitation Status: Full Code
PRN Pain Medication Management As Directed
May give lesser potent ordered pain med per pt: Yes
preference::
Protocol:: Medication orders for pain may be administered in a
manner that supports deferring to patient preference
when the pt is:
- Requesting an ordered lesser potent pain medication.
Least to most potent pain medications are defined
as: acetaminophen < NSAID < tramadol < opioids
(morphine, oxycodone, hydromorphone).
- Requesting a lesser dose of the same medication IF
ORDERED.
- Requesting a less intrusive route of administration
if both routes are prescribed by the provider (PO <
IV).
03/19/25 16:58
DVT Contraindication [VTE Contraindication] Routine
VTE Mechanical Device Contraindication: Medical Contraindication
Pharmocologic Contraindication: Medical Contraindication
EKG PRN [ECG as needed] As Directed
ECG as needed for:: Rhythm Change
INT (Intravenous Needle Therapy) As Directed
Intake/ Output As Directed
Frequency: Per unit guidelines
Vital Signs As Directed
Frequency: Per unit guidelines
Weight As Directed
Frequency: Once
Type of Scale: Standing Scale
03/19/25 18:00
Rosuvastatin Calcium [Crestor] 20 mg PO QPM
03/19/25 20:00
Apixaban [Eliquis] 5 mg PO BID
03/20/25 06:00
Echo Sandip W/echo Doppler (#17) IN AM
Reason for Study: SANDIP guided DCCV, R/O thrombus
03/20/25 08:00
Acetaminophen [Tylenol] 650 mg PO DAILY
Amlodipine [Norvasc] 2.5 mg PO DAILY
Aspirin Chewable [Low Strength Aspirin] 81 mg PO DAILY
Dapagliflozin [Farxiga] 10 mg PO DAILY
Docusate W/Senna [Senokot-S] 1 tablet PO DAILY
Pantoprazole [Protonix] 40 mg PO DAILY
Abnormal Lab Results
03/19/25
11:55
MCHC 31.8 L g/dL
(33.0-37.0)
03/19/25 11:55
03/19/25 11:55
Vital Signs
Initial and Last Documented VS:
Initial Vital Signs
Temp Pulse Resp BP Pulse Ox
97.9 F 69 20 141/87 98
03/19/25 10:23 03/19/25 10:23 03/19/25 10:23 03/19/25 10:23 03/19/25 10:23
Last Documented Vital Signs
Temp Pulse Resp BP Pulse Ox
98.0 F 75 20 112/70 95
03/19/25 16:53 03/19/25 17:30 03/19/25 16:53 03/19/25 17:06 03/19/25 17:00
<Kandis Ledesma DO - Last Filed: 03/19/25 14:01>
Orders/Labs/Results
Orders:
Orders
03/19/25 Breakfast
NPO
Allow oral meds: Yes
Allow clear liquids: No
NPO with Ice Chips: No
03/19/25 Lunch
Cholesterol Lowering
At Your Request: Full Participation
03/19/25 10:22
ECG [Electrocardiogram (*1)] Urgent
Reason for Study: Atrial Flutter
EKG- Treatment ONCE
03/19/25 11:55
Complete Blood Count/No Diff Urgent
Comprehensive Metabolic Panel Urgent
Magnesium Urgent
03/19/25 14:01
Admit/Transfer Patient As Directed
Co-Sign Provider:
Level of Care: Inpatient admission
Assign to:: IVU
Physician / Group: CBC
Diagnosis: Atrial flutter
Reason for Hospitalization: Atrial flutter
Expected length of stay greater than two midnights?: Yes
ELOS- Estimated Length of Stay in days: 3
I certify the patient meets the requirements for IP care: Yes
Code Status As Directed
Resuscitation Status: Full Code
PRN Pain Medication Management As Directed
May give lesser potent ordered pain med per pt: Yes
preference::
Protocol:: Medication orders for pain may be administered in a
manner that supports deferring to patient preference
when the pt is:
- Requesting an ordered lesser potent pain medication.
Least to most potent pain medications are defined
as: acetaminophen < NSAID < tramadol < opioids
(morphine, oxycodone, hydromorphone).
- Requesting a lesser dose of the same medication IF
ORDERED.
- Requesting a less intrusive route of administration
if both routes are prescribed by the provider (PO <
IV).
03/19/25 16:58
DVT Contraindication [VTE Contraindication] Routine
VTE Mechanical Device Contraindication: Medical Contraindication
Pharmocologic Contraindication: Medical Contraindication
EKG PRN [ECG as needed] As Directed
ECG as needed for:: Rhythm Change
INT (Intravenous Needle Therapy) As Directed
Intake/ Output As Directed
Frequency: Per unit guidelines
Vital Signs As Directed
Frequency: Per unit guidelines
Weight As Directed
Frequency: Once
Type of Scale: Standing Scale
03/19/25 18:00
Rosuvastatin Calcium [Crestor] 20 mg PO QPM
03/19/25 20:00
Apixaban [Eliquis] 5 mg PO BID
03/20/25 06:00
Echo Sandip W/echo Doppler (#17) IN AM
Reason for Study: SANDIP guided DCCV, R/O thrombus
03/20/25 08:00
Acetaminophen [Tylenol] 650 mg PO DAILY
Amlodipine [Norvasc] 2.5 mg PO DAILY
Aspirin Chewable [Low Strength Aspirin] 81 mg PO DAILY
Dapagliflozin [Farxiga] 10 mg PO DAILY
Docusate W/Senna [Senokot-S] 1 tablet PO DAILY
Pantoprazole [Protonix] 40 mg PO DAILY
Abnormal Lab Results
03/19/25
11:55
MCHC 31.8 L g/dL
(33.0-37.0)
03/19/25 11:55
03/19/25 11:55
Vital Signs
Initial and Last Documented VS:
Initial Vital Signs
Temp Pulse Resp BP Pulse Ox
97.9 F 69 20 141/87 98
03/19/25 10:23 03/19/25 10:23 03/19/25 10:23 03/19/25 10:23 03/19/25 10:23
Last Documented Vital Signs
Temp Pulse Resp BP Pulse Ox
98.0 F 75 20 112/70 95
03/19/25 16:53 03/19/25 17:30 03/19/25 16:53 03/19/25 17:06 03/19/25 17:00
<Zachery Haines PA-C - Last Filed: 03/19/25 18:36>
MDM/Problems Addressed
MDM/Problems Addressed:
Patient evaluated by cardiology at bedside, he is in rate control and hemodynamically stable however it is felt that the patient would best suited by undergoing a SANDIP cardioversion tomorrow, Eliquis will be initiated currently. Will be admitted to
the cardiology service
<Zachery Haines PA-C - Last Filed: 03/19/25 18:36>
Comment
Comment:
EKG independently interpreted by me shows a rate controlled flutter with variable conduction and occasional PVCs
*Pulse Oximetry
SaO2: 98
Oxygen Mode of Delivery: Room air
Patient hypoxic: no
*Critical Care Note
Total Time (30-74mins, 75-104mins- exclusive of procedures): Not Applicable
ED Attending Note
<Zachery Haines PA-C - Last Filed: 03/19/25 18:36>
-
Portions of this chart may have been created with voice recognition software.� Occasional wrong word or��sound alike� substitutions may have occurred due to the inherent limitations of voice recognition software.
<Kandis Ledesma DO - Last Filed: 03/19/25 14:01>
ED Attending Note
Patient seen and examined by attending physician: Yes
I performed the substantive portion of visit, reviewed & personally made and approve the management plan that is documented in note by myself or AURORA.: Yes
I performed a history and physical exam of patient and discussed management with resident, I reviewed resident's note and agree with documented findings and plan of care.: Yes
ED Attending Note:
59-year-old male status post CABG in January presenting to emergency department for new onset A-fib. Patient was going to cardiac rehab today. They did an EKG and noted that he was in A-fib. Patient with no prior history. He is asymptomatic and
denies any palpitations. He is unsure when the A-fib may have started. Denies chest pain, difficulty breathing, fever, additional acute medical complaints.
Vital signs on arrival are normal. On exam patient is resting comfortably, no acute distress. On cardiac exam, rate controlled A-fib, confirmed with EKG. No signs of volume overload, no respiratory distress. Case was discussed with cardiology
and cardiology at bedside. Recommending anticoagulation and admission for echo and cardioversion. Patient agreeable to plan
Discharge Plan
Departure
Patient Disposition: Admit
Date of Disposition: 03/19/25
Time of Disposition: 13:43
Admit to: IVU
Presentation/result/management discussed w/ accepting MD/DO: CardiologyTre Wisdom
Discharge Problem:
New onset atrial flutter
Interventions
Interventions:
*Risk Screen - Suicide Last Done: 03/19/25 10:23
*General Assessment Last Done: 03/19/25 10:23
*Neglect/Abuse Screening Last Done: 03/19/25 11:43
*ED- Fall Risk Assessment Last Done: 03/19/25 11:40
*ED COVID-19 Vaccine History Last Done: 03/19/25 11:43
*ED Influenza Vaccine History Last Done: 03/19/25 11:43
*Nursing Disposition Last Done: 03/19/25 16:50
ED- Pulmonary Assessment Last Done: 03/19/25 11:40
ED- Cardiac Assessment Last Done: 03/19/25 11:40
Discharge Date and Time
Discharge Date/Time: 03/19/25 16:50
--- NOTE | 2025-03-19 11:45 | EDRN ---
REceived patient on stretcher. Patient denies c/o chest pain,dizziness,SOB and palpitations.
--- NOTE | 2025-03-19 11:56 | CON.CAR ---
Addendum entered and electronically signed by Panfilo Wisdom MD 03/19/25 14:20:
I saw and evaluated the patient, and I provided the substantive portion of the medical decision making.
I reviewed and agree with the note by Dr Whitfield and it accurately reflects our care.
I personally performed the medical decision making of the this encounter and my assessment and plan is below:
Start Eliquis
LACIE DCCV tomorrow
anticipate d/c tomorrow after LACIE DCCV
Original Note:
Consultation
Consultation Request
Date/Time Consultation Requested: 03/19/2025
Date/Time Consultation Performed: 03/19/2025
Requesting Provider: Zachery Haines
Performing Provider: Panfilo Wisdom
Reason for Consultation: Atrial flutter
Medical History
-
Chief Complaint: Atrial flutter
History of Present Illness:
Ronal is a 59 year old man with a past medical history of CAD, recent CABG (in-situ ERIN to LAD, in-situ ELISE to distal RCA past crux, RA to RPLB2) January 2025, ischemic cardiomyopathy with LVEF 40-45%, NIDDM diet-controlled, hyperlipidemia,
history of DVT May 2024 who presented to the emergency room after ECG at OP cardiac rehab showed rate controlled A flutter.
After recent discharge, patient returned home and abided recommendations from CT surgery, including taking new medications (BB, aspirin, plavix, CCB). He reports running out of plavix x3 days ago and not being able to get a new rx just yet, but
other than that all other medications were taken appropriately. He reports some initial weakness and fatigue, which gradually improved as the days went on. he noticed no shortness of breath, chest pain, palpitations, dizziness, lightheadedness or
syncope during this time. He has been walking 2-4 miles per day without issue. He reports feeling well this morning and even now. He went to outpatient cardiac rehab today to begin his first session when an ECG showed that he was in A flutter
without rvr. He was then sent to the ED for further evaluation.
He reports no known history of prior arrhythmia. He has never felt palpitations, lightheadedness, dizziness or syncope. He reports several ECGs in the past, however 'they always looked good.' Of note, prior to 2023, he had been without regular
medical care for 16 years. Recent ECGs from January show SR with 1st degree AV block.
Past Medical History
Past Medical History: Other (See HPI)
Past Surgical History: Other (Unspecified eye surgery at age 8, unspecified ear surgery in 2009, CABG x 20 January 2025)
Social History
Tobacco: Non-Smoker
Alcohol: None
Drug: None
Personal: Single
Living: With Family
Employment: Employed
Family History
Family History: Reviewed & Not Pertinent
Allergies / Home Medications
Allergy/AdvReac Type Severity Reaction Status Date / Time
No Known Allergies Allergy Verified 03/19/25 10:27
�Medication �Instructions �Recorded �Confirmed �Type
methocarbamol 500 mg tablet 500 mg PO HS 02/02/25 02/02/25 History
acetaminophen 325 mg tablet 650 mg (2 x 325 mg) PO Q4HPRN PRN 02/15/25 Rx
mild pain,headache,temp >101F #0
tabs
amlodipine 2.5 mg tablet 2.5 mg PO DAILY #30 tabs 02/15/25 Rx
aspirin 81 mg chewable tablet 81 mg PO DAILY #0 tabs 02/15/25 Rx
clopidogrel 75 mg tablet 75 mg PO DAILY #30 tabs 02/15/25 Rx
dapagliflozin propanediol 10 mg 10 mg PO DAILY #30 tabs 02/15/25 Rx
tablet
furosemide 40 mg tablet (Lasix) 40 mg PO DAILY #7 tabs 02/15/25 Rx
metoprolol succinate 25 mg 25 mg PO DAILY #30 tabs 02/15/25 Rx
tablet,extended release 24 hr
oxycodone 5 mg tablet 5 mg PO .Q6H PRN PRN moderate pain 02/15/25 Rx
#28 tabs
pantoprazole 40 mg tablet,delayed 40 mg PO DAILY GI Prophylaxis with 02/15/25 Rx
release Plavix #30 tabs
potassium chloride 20 mEq 20 meq PO DAILY #7 tabs 02/15/25 Rx
tablet,extended
release(part/cryst) (Klor-Con M)
rosuvastatin 20 mg tablet 20 mg PO QPM #30 tabs 02/15/25 Rx
sennosides 8.6 mg-docusate sodium 1 tab PO Q12 #40 tabs 02/15/25 Rx
50 mg tablet
Review of Systems
-
History Source: Patient
All other systems: Negative unless noted
Physical Exam
Vital Signs
Temp Pulse Resp BP Pulse Ox
97.9 F 73 19 123/93 98
03/19/25 10:23 03/19/25 11:30 03/19/25 11:30 03/19/25 11:00 03/19/25 11:42
Physical Exam
General: Well Developed, Well Nourished, No Apparent Distress and Comfortable
HEENT: Normocephalic, Anicteric, Moist Mucous Membranes and Atraumatic
Respiratory: Clear and Non Labored Respirations; Negative Wheezes, Crackles or Rhonchi
Cardiac: S1/S2, Irregular Rhythm and Other (Healed thoracotomy incision without crepitus, tenderness, erythema, or induration.); Negative Murmur
Breast: N/A
GI: Soft, Non Tender, Non Distended and Normal Bowel Sounds
Musculoskeletal: No Clubbing, No Cyanosis and No Edema
Skin: Warm and Dry
Neuro: AO x 3
Psych: Calm
Impression / Plan
-
Ronal is a 59 year old man with a past medical history of CAD, recent CABG (in-situ ERIN to LAD, in-situ ELISE to distal RCA past crux, RA to RPLB2) January 2025, ischemic cardiomyopathy with LVEF 40-45%, NIDDM diet-controlled, hyperlipidemia,
history of DVT May 2024 who presented to the emergency room after ECG at OP cardiac rehab showed rate controlled A flutter.
#Atrial Flutter without RVR
New onset A flutter without symptoms, approx 4 weeks out from CABG x3, has been taking BB at home. Hemodynamically stable
- ECG and tele confirming rate controlled aflutter
- on DAPT s/p CABG, though has missed last 3d of Plavix
- discussed options with patient and regarding inpatient versus outpatient LACIE w/ cardioversion
- pt will undergo LACIE/Cardioversion this admission (likely tomorrow)
- will start on Eliquis 5mg BID
- Continue Aspirin
- Stop Plavix
#CAD, s/p CABG x3 January 2025
- not in ACS, nicely healed thoracotomy w/o sternal pain or crepitus
- c/w aspirin as above
- c/w statin
- c/w amlodipine to reduce the risk of vessel spasm/closure
#Essential Hypertension
- pressures stable this admission
- c/w antihypertensives as above
[2025-03-19 12:13] LABS: Hematocrit 44.6 % (39.0-52.0); Hemoglobin 14.2 g/dL (13.0-18.0); Mean Corp Hgb Conc. 31.8 g/dL (33.0-37.0); Mean Corpuscular Volume 89.6 fL (80.0-94.0); Platelet Count 252 10^3/uL (130-400); Red Cell Dist. Width 14.4 % (11.5-14.5)
[2025-03-19 12:23] LABS: ALT (SGPT) 26 U/L (0-50); AST (SGOT) 30 U/L (17-59); Albumin 4.6 g/dl (3.5-5.0); Alkaline Phosphatase 95 U/L (38-126); Blood Urea Nitrogen 13 mg/dl (9-20); Calcium 9.8 mg/dl (8.4-10.2); Carbon Dioxide 27 mmol/L (22-30); Chloride 105 mmol/L (98-107); Estimated Creatinine Clearance > 125 ml/min; Glucose 87 mg/dl (70-99); Magnesium 2.1 mg/dl (1.6-2.3); Potassium 4.3 mmol/L (3.5-5.1); Sodium 140 mmol/L (135-145); Total Protein 7.6 g/dl (6.3-8.2); eGFR > 60.00
--- NOTE | 2025-03-19 17:14 | EDRN ---
Patient taken to room 2259 on monitor in wheelchair. Report given ARIANNA Gill
[2025-03-19] MEDS: CRESTOR 20 MG PO (17:17)
--- NOTE | 2025-03-19 17:22 | PTCARENOTE ---
Received pt from ED with RN; pt AAOX3 and ambulating in room; A-flutter on monitor and VSS; PIVX1 patent; Lungs clear; positive bowel sounds; palpable pulses throughout; no edema noted; post surgical sites C/D/I; see nursing documentation for
further details; pt updated on plan of day.
[2025-03-19] MEDS: ELIQUIS 5 MG PO (20:26)
--- NOTE | 2025-03-19 20:30 | PTCARENOTE ---
Assumed care of pt from dayshift RN. Walking rounds completed. Pt AAOx3. Appropriate. A-flutter w/ PVCs on the tele monitor. HR 70-90s. BP stable. Palpable pulses throughout. No edema noted. 94% on RA. B/L breath sounds present and equal. Abdomen
round. +BSx4. Voiding w/o issue. NPO starting at midnight. Previous surgical sites healed and intact. PIV x1 intact. Pt independent in room. See worklist for full nursing assessment and interventions. Call coombs within reach.
[2025-03-20 00:42] VITALS: BP 143/85
--- NOTE | 2025-03-20 00:46 | PTCARENOTE ---
No acute change sin assessment. A-flutter on the tele monitor. HR 60-70s. BP stable. 96% on RA. Denies pain at this time. Call coombs within reach.
[2025-03-20 04:35] VITALS: BP 124/80
[2025-03-20 04:38] VITALS: BMI 33.8
--- NOTE | 2025-03-20 04:48 | PTCARENOTE ---
No acute changes in assessment. Pt remains in a-flutter w/ occasional PVCs on the tele monitor. HR 60-70s. BP stable. 97% on RA. No c/o pain. Up ad denise to void. Call coombs within reach.
[2025-03-20 07:48] VITALS: BP 122/80
--- NOTE | 2025-03-20 07:55 | PTCARENOTE ---
Assumed care of patient from administrative assistant receptionist RN. AAO x 3 denies complaint. A flutter on monitor 60's. Room air 97%. Assessment otherwise benign. NPO for procedure later. Plan for day discussed.
[2025-03-20] MEDS: TYLENOL 650 MG PO (08:15)
[2025-03-20] MEDS: NORVASC 2.5 MG PO (08:15)
[2025-03-20] MEDS: LOW STRENGTH ASPIRIN 81 MG PO (08:15)
[2025-03-20] MEDS: FARXIGA 10 MG PO (08:15)
[2025-03-20] MEDS: PROTONIX 40 MG PO (08:15)
[2025-03-20] MEDS: ELIQUIS 5 MG PO (08:15)
--- NOTE | 2025-03-20 11:50 | PTCARENOTE ---
Transported in wheel chair to microbiological laboratory technician for LACIE/cv.
--- NOTE | 2025-03-20 12:18 | W.PN.CD ---
Addendum entered and electronically signed by Roosevelt Welch MD 03/20/25 12:46:
Heart failure with mildly reduced ejection fraction
-Resume home metoprolol succinate 25 mg daily
-Start valsartan 40 mg twice daily
-Continue dapagliflozin 10 mg daily
-Assess for MRA as an outpatient
Original Note:
Today's Communication / Plan
-
S/p successful DCCV, now back in sinus rhythm
Continue Eliquis 5 mg twice daily
Stop Plavix and continue aspirin
He is okay for discharge from cardiovascular standpoint. We will arrange follow-up in our office.
Impression / Plan
-
Ronal is a 59 year old man with a past medical history of CAD, recent CABG (in-situ ERIN to LAD, in-situ ELISE to distal RCA past crux, RA to RPLB2) January 2025, ischemic cardiomyopathy with LVEF 40-45%, NIDDM diet-controlled, hyperlipidemia,
history of DVT May 2024 who presented to the emergency room after ECG at OP cardiac rehab showed rate controlled A flutter.
#Atrial Flutter without RVR
- New onset A flutter without symptoms, approx 4 weeks out from CABG x3, has been taking BB at home. Hemodynamically stable
- Now back in sinus rhythm s/p cardioversion on 03/20/2025
- Continue Eliquis 5 mg twice daily (started this admission)
- Continue ASA, stop Plavix
#CAD, s/p CABG x3 January 2025
- not in ACS, nicely healed thoracotomy w/o sternal pain or crepitus
- c/w Aspirin as above
- c/w statin
- c/w amlodipine to reduce the risk of vessel spasm/closure
#Essential Hypertension
- pressures stable this admission
- c/w antihypertensives as above
Physical Exam
Vital Signs/Labs
Vital Signs
Temp Pulse Resp BP Pulse Ox
98.0 F 92 16 122/80 97
03/20/25 07:50 03/20/25 11:30 03/20/25 07:50 03/20/25 07:48 03/20/25 09:04
03/19/25 03/20/25 03/21/25
06:59 06:59 06:59
Actual Weight 228 lb 6.382 oz
03/19/25 11:55
03/19/25 11:55
Magnesium 2.1 mg/dl (1.6-2.3) 03/19/25 11:55
Physical Exam
Constitutional: No acute distress and Comfortable
Cardiovascular: Rhythm & rate is regular, Pedal edema is absent, S1S2 is normal and Murmur/rub/gallop absent
Respiratory: Respiratory effort normal and Lungs clear to auscul.
Neuro/Psych: AO x 3
Data Reviewed
-
Date of Service: March 20, 2025
Medical Decision Making: Reviewed Test Results, Test Interpretation and Review of Case with other Provider
EKG: Tracing Personally Visualized and interpreted
Echo: Tracing Personally Visualized and interpreted and Report Reviewed by me
Labs: Labs Reviewed by me
--- NOTE | 2025-03-20 13:00 | PTCARENOTE ---
Received back from record label intern. SR wt first degree AV block and BBB w/ PVC's. VSS. Ordering lunch. Assessment unchanged from prior.
[2025-03-20] MEDS: DIOVAN 40 MG PO (13:12)
[2025-03-20] MEDS: TOPROL XL 25 MG PO (13:12)
--- NOTE | 2025-03-20 14:01 | W.DS.TRANS ---
Addendum entered and electronically signed by CONNOR Vu 03/20/25 14:06:
LACIE also done, in addition to cardioversion
Original Note:
DC Summary - Custodian Manager
-
Discharge Instructions:
Sleep Apnea Risk Intermediate
Discharge Diagnosis/Procedures Diagnosis: Atrial flutter
Procedure: Cardioversion
Other diagnoses:
Coronary artery disease, cardiomyopathy,
hypertension
Diet Low Fat,Low Cholesterol,2 Gram Sodium,Restrict
fluids to 64 oz
Activity As tolerated
Additional Activity Please follow previous activity restrictions as
advised post-cardiac surgery
Driving Restrictions No driving for 24 hours
Blood Work BMP 1-2 weeks (prior to follow-up office visit)-
sent electronically to [facility]
Other Services Cardiac Rehab
Specialty Instructions Weigh Daily
Instructions:
Stand-Alone Forms:
Changes to Home Medications: Yes
Discharge Medications:
DC Medications w/original date entered in NPTV
amlodipine 2.5 mg tablet 2.5 mg PO DAILY #30 tabs 02/15/25
aspirin 81 mg chewable tablet 81 mg PO DAILY #0 tabs 02/15/25
dapagliflozin propanediol 10 mg tablet 10 mg PO DAILY #30 tabs 02/15/25
metoprolol succinate 25 mg tablet,extended release 24 hr 25 mg PO DAILY #30 tabs 02/15/25
pantoprazole 40 mg tablet,delayed release 40 mg PO DAILY GI Prophylaxis with Plavix #30 tabs 02/15/25
rosuvastatin 20 mg tablet 20 mg PO QPM #30 tabs 02/15/25
acetaminophen 650 mg tablet,extended release 650 mg PO DAILY Pain 03/19/25
sennosides 8.6 mg-docusate sodium 50 mg tablet 1 tab PO DAILY Constipation 03/19/25
apixaban 5 mg tablet (Eliquis) 5 mg PO BID #60 tabs 03/20/25
valsartan 40 mg tablet 40 mg PO BID #60 tabs 03/20/25
Home Medication Changes
Added valsartan and Eliquis. Stopped clopidogrel.
Pending Results: No
--- NOTE | 2025-03-20 14:08 | CM ---
Reviewed chart. Met with Mr. Castro to review discharge plans. He staes prior to admission he was staying with his brother and [id number] in [place], [place]. He states he has a first floor set-up He states prior to admission he was
independent with ambulation and adls. He states he does not have any DME in the home. He states he has a prescription plan and uses [facility]. Telephone call to [facility] to check co-pay for Fran. His co-pay would be $15.00. He has
commercial insurance so he can use the $10.00 coupon. THe nurse will give him the #10.00 coupon on discharge. Medical work-up in progress. The discharge plan is to return home with his brother and [id number] when medically stable.
[2025-03-20] MEDS: FLUZONE (6 mos+) 2025-2026 FORMULA 0.5 ML IM (14:26)
--- NOTE | 2025-03-20 14:49 | PTCARENOTE ---
Discharge order obtained. INT and telemetry pack removed. FLU shot administered. Discharge instructions reviewed. Wheeled to car by party plan sales unit sales leader.
== END 2025-03-20 14:57 | disposition home or self-care (01) | DRG 309 ==
LOC: CVICU 14:20
PROVIDERS: Physician Assistant; Student in an Organized Health Care Education/Training Program; ADMITTING PHYSICIAN Internal Medicine Cardiovascular Disease; EMERGENCY PHYSICIAN Student in an Organized Health Care Education/Training Program; FAMILY PHYSICIAN Nurse Practitioner Adult Health
PROC: 3E02340 Introduction of Influenza Vaccine into Muscle, Percutaneous Approach (ICD-10-PCS; 2025-03-20)
PROC: 5A2204Z Restoration of Cardiac Rhythm, Single (ICD-10-PCS; 2025-03-20)
PROC: B24BZZ4 Ultrasonography of Heart with Aorta, Transesophageal (ICD-10-PCS; 2025-03-20)
DX: I48.92 Unspecified atrial flutter (principal); I50.22 Chronic systolic (congestive) heart failure; Q21.12 Patent foramen ovale; I25.10 Atherosclerotic heart disease of native coronary artery without angina pectoris; I11.0 Hypertensive heart disease with heart failure; E78.00 Pure hypercholesterolemia, unspecified; I25.5 Ischemic cardiomyopathy; E11.9 Type 2 diabetes mellitus without complications; I49.3 Ventricular premature depolarization; I48.91 Unspecified atrial fibrillation; Z95.1 Presence of aortocoronary bypass graft; Z23 Encounter for immunization; Z86.718 Personal history of other venous thrombosis and embolism; Z79.84 Long term (current) use of oral hypoglycemic drugs; Z79.02 Long term (current) use of antithrombotics/antiplatelets; Z79.82 Long term (current) use of aspirin
CPT/HCPCS: 80053; 83735; 85027; 90656; 92960; 93005; 93312; 93320; 93325; 93798; 99284; G0008

== ENCOUNTER 2025-04-19 10:34 | Outpatient (RCR) | payer BC, SELFPAY ==
[2025-03-28 13:15] LABS: Glucose - Point of Care 95 mg/dl (70-99)
[2025-03-28 13:56] LABS: Glucose - Point of Care 80 mg/dl (70-99)
[2025-03-29 08:11] LABS: Glucose - Point of Care 93 mg/dl (70-99)
[2025-03-29 09:10] LABS: Glucose - Point of Care 105 mg/dl (70-99)
[2025-04-01 08:25] LABS: Glucose - Point of Care 143 mg/dl (70-99)
[2025-04-01 09:18] LABS: Glucose - Point of Care 106 mg/dl (70-99)
[2025-04-03 08:17] LABS: Glucose - Point of Care 170 mg/dl (70-99)
[2025-04-03 09:14] LABS: Glucose - Point of Care 128 mg/dl (70-99)
[2025-04-05 08:08] LABS: Glucose - Point of Care 144 mg/dl (70-99)
[2025-04-05 09:07] LABS: Glucose - Point of Care 106 mg/dl (70-99)
[2025-04-08 08:09] LABS: Glucose - Point of Care 150 mg/dl (70-99)
[2025-04-08 09:04] LABS: Glucose - Point of Care 78 mg/dl (70-99)
[2025-04-08 09:17] LABS: Glucose - Point of Care 93 mg/dl (70-99)
[2025-04-10 08:08] LABS: Glucose - Point of Care 143 mg/dl (70-99)
[2025-04-10 09:07] LABS: Glucose - Point of Care 94 mg/dl (70-99)
[2025-04-12 08:10] LABS: Glucose - Point of Care 126 mg/dl (70-99)
[2025-04-12 09:10] LABS: Glucose - Point of Care 86 mg/dl (70-99)
[2025-04-15 08:17] LABS: Glucose - Point of Care 155 mg/dl (70-99)
[2025-04-15 09:17] LABS: Glucose - Point of Care 74 mg/dl (70-99)
[2025-04-15 09:36] LABS: Glucose - Point of Care 129 mg/dl (70-99)
[2025-04-17 08:16] LABS: Glucose - Point of Care 135 mg/dl (70-99)
[2025-04-17 09:17] LABS: Glucose - Point of Care 106 mg/dl (70-99)
[2025-04-19 08:08] LABS: Glucose - Point of Care 186 mg/dl (70-99)
[2025-04-19 09:04] LABS: Glucose - Point of Care 97 mg/dl (70-99)
== END 2025-04-19 23:59 | disposition home or self-care (01) ==
LOC: CRHB 10:34
PROVIDERS: ATTENDING PHYSICIAN Internal Medicine; FAMILY PHYSICIAN Nurse Practitioner Adult Health
DX: I25.10 Atherosclerotic heart disease of native coronary artery without angina pectoris (principal); Z95.1 Presence of aortocoronary bypass graft
CPT/HCPCS: 82962; 93797; 93798; G0422; G0423

== ENCOUNTER 2025-05-01 16:06 | Outpatient (RCR) | payer BC, SELFPAY ==
[2025-04-22 08:03] LABS: Glucose - Point of Care 147 mg/dl (70-99)
[2025-04-22 08:58] LABS: Glucose - Point of Care 81 mg/dl (70-99)
[2025-04-24 08:10] LABS: Glucose - Point of Care 134 mg/dl (70-99)
[2025-04-24 09:07] LABS: Glucose - Point of Care 94 mg/dl (70-99)
[2025-04-26 08:13] LABS: Glucose - Point of Care 145 mg/dl (70-99)
[2025-04-26 09:10] LABS: Glucose - Point of Care 91 mg/dl (70-99)
[2025-04-29 16:08] LABS: Glucose - Point of Care 83 mg/dl (70-99)
[2025-04-29 17:03] LABS: Glucose - Point of Care 128 mg/dl (70-99)
== END 2025-05-01 17:55 | disposition home or self-care (01) ==
LOC: CRHB 16:06
PROVIDERS: ATTENDING PHYSICIAN Internal Medicine; FAMILY PHYSICIAN Nurse Practitioner Adult Health
DX: I25.10 Atherosclerotic heart disease of native coronary artery without angina pectoris (principal); Z95.1 Presence of aortocoronary bypass graft
CPT/HCPCS: 82962; 93797; 93798

== ENCOUNTER → 2025-05-10 14:13 | Outpatient (REF) | payer BC, SELFPAY | LOC: HWRAD 14:13 | PROVIDERS: ATTENDING PHYSICIAN Nurse Practitioner Family; FAMILY PHYSICIAN Nurse Practitioner Adult Health | DX: R93.89 Abnormal findings on diagnostic imaging of other specified body structures (principal) | CPT/HCPCS: 71250 ==